=== PATIENT | female | born 1975 | race Caucasian/White ===

== ENCOUNTER 2016-12-21 18:45 | Emergency (ER) | payer SELFPAY ==
--- NOTE | 2016-12-21 19:17 | ER Document Report ---
ED Medical Screen (RME) - General Stated Complaint: FLANK PAIN Time seen by provider: 19:16 Mode of Arrival: Ambulatory Information source: Patient TRAVEL OUTSIDE OF THE [place] IN LAST 30 DAYS: No - HPI Patient complains to provider of: BL flank pain, nausea Onset: Other - 2 weeks Onset/Duration: Persistent Quality of pain: Achy, Sharp Severity: Moderate Pain Level: 3 Associated Symptoms: Nausea Exacerbated by: Denies Relieved by: Denies Similar symptoms previously: Yes Recently seen / treated by doctor: No - Related Data Allergies/Adverse Reactions: hydrochlorothiazide [Hydrochlorothiazide] Allergy (Severe, Verified 12/21/16 19: 15) Hives Past Medical History - Past Medical History Cardiac Medical History: Reports: Hx Hypertension Neurological Medical History: Reports: Hx Migraine GI Medical History: Reports: Hx Gastroesophageal Reflux Disease Musculoskeltal Medical History: Reports Hx Gout Psychiatric Medical History: Reports: Hx Depression Traumatic Medical History: Reports: Hx Traumatic Brain Injury - CLOSED Past Surgical History: Reports: Hx Cardiac Surgery - ablation, heart cath in march, Hx Orthopedic Surgery - Immunizations Hx Diphtheria, Pertussis, Tetanus Vaccination: Yes Physical Exam - Vital signs Vitals: Temp Pulse Resp BP Pulse Ox 97.6 F 94 18 146/79 H 97 12/21/16 19:13 12/21/16 19:13 12/21/16 19:13 12/21/16 19:13 12/21/16 19:13 Course - Vital Signs Vital signs: Temp Pulse Resp BP Pulse Ox 97.6 F 94 18 146/79 H 97 12/21/16 19:13 12/21/16 19:13 12/21/16 19:13 12/21/16 19:13 12/21/16 19:13
[2016-12-21 20:26] LABS: APPEARANCE,URINE SLIGHTLY-CLOUDY; BILIRUBIN,URINE NEGATIVE (NEGATIVE); GLUCOSE, URINE NEGATIVE (NEGATIVE); KETONES,URINE NEGATIVE (NEGATIVE); LEUKOCYTE ESTERASE,URINE NEGATIVE (NEGATIVE); NITRITE,URINE NEGATIVE (NEGATIVE); PROTEIN,URINE NEGATIVE (NEGATIVE); URINE SPECIFIC GRAVITY 1.027; UROBILINOGEN,URINE NEGATIVE mg/dL (<2.0)
[2016-12-21 20:33] LABS: ABSOLUTE BASOPHILS # (AUTO) 0.1 10^3/uL (0.0-0.2); ABSOLUTE EOSINOPHILS # (AUTO) 0.7 10^3/uL (0.0-0.6); ABSOLUTE LYMPHOCYTES (AUTO) 3.9 10^3/uL (0.5-4.7); ABSOLUTE MONOCYTES (AUTO) 0.8 10^3/uL (0.1-1.4); ABSOLUTE NEUT (AUTO) 6.5 10^3/uL (1.7-8.2); BASOPHILS % (AUTO) 0.6 % (0-2); EOSINOPHILS % (AUTO) 5.5 % (0-6); HEMOGLOBIN 13.5 g/dL (12.0-15.5); HGB HCT DIFFERENCE -0.5; LYMPHOCYTES % (AUTO) 32.9 % (13-45); MEAN CORPUSCULAR HEMOGLOBIN 28.4 pg (27.0-33.4); MEAN CORPUSCULAR HGB CONC 32.8 g/dL (32.0-36.0); MEAN CORPUSCULAR VOLUME 87 fl (80-97); MONOCYTES % (AUTO) 6.3 % (3-13); RED BLOOD COUNT 4.74 10^6/uL (3.72-5.28); RED CELL DISTRIBUTION WIDTH 13.7 % (11.5-14.0); SEGMENTED NEUTROPHILS % (AUTO) 54.7 % (42-78)
[2016-12-21 20:48] LABS: ALANINE AMINOTRANSFERASE 33 U/L (9-52); ALBUMIN 4.5 g/dL (3.5-5.0); ALKALINE PHOSPHATASE 76 U/L (38-126); ANION GAP 14 (5-19); ASPARTATE AMINO TRANSFERASE 25 U/L (14-36); BILIRUBIN,TOTAL 0.5 mg/dL (0.2-1.3); BLOOD UREA NITROGEN 14 mg/dL (7-20); CALCIUM 9.9 mg/dL (8.4-10.2); CARBON DIOXIDE 27 mmol/L (22-30); CHLORIDE 103 mmol/L (98-107); CREATININE RESULT 0.64 mg/dL (0.52-1.25); GLUCOSE 97 mg/dL (75-110); LIPASE 121.9 U/L (23-300); POTASSIUM 4.4 mmol/L (3.6-5.0); SODIUM 143.9 mmol/L (137-145); TOTAL PROTEIN 8.4 g/dL (6.3-8.2)
--- NOTE | 2016-12-21 21:26 | ER Document Report ---
ED General - General Chief Complaint: Flank Pain Stated Complaint: FLANK PAIN Time seen by provider: 21:21 Mode of Arrival: Ambulatory Information source: Patient Notes: 41-year-old female presenting to ED for bilateral flank pain times a week states it is intermittent with sharp and achy. States she has a history of kidney stones in the past. TRAVEL OUTSIDE OF THE [place] IN LAST 30 DAYS: No - HPI Onset: Last week Onset/Duration: Intermittent Quality of pain: Achy, Sharp Severity: Moderate Pain Level: 3 Associated symptoms: Nausea, Other - Flank pain Exacerbated by: Movement, Walking Relieved by: Denies Similar symptoms previously: Yes Recently seen / treated by doctor: No - Related Data Allergies/Adverse Reactions: hydrochlorothiazide [Hydrochlorothiazide] Allergy (Severe, Verified 12/21/16 19: 15) Hives Past Medical History - General Information source: Patient - Social History Smoking Status: Never Smoker Chew tobacco use (# tins/day): No Frequency of alcohol use: None Drug Abuse: None Occupation: none Lives with: Family Family History: Reviewed & Not Pertinent Patient has suicidal ideation: No Patient has homicidal ideation: No - Past Medical History Cardiac Medical History: Reports: Hx Atrial Fibrillation - Ablation done, Hx Hypercholesterolemia, Hx Hypertension Pulmonary Medical History: Reports: Hx Bronchitis, Hx Sleep Apnea EENT Medical History: Reports: None Neurological Medical History: Reports: Hx Migraine Endocrine Medical History: Reports: None Renal/ Medical History: Reports: Hx Kidney Stones Malignancy Medical History: Reports: None GI Medical History: Reports: Hx Gastroesophageal Reflux Disease Musculoskeltal Medical History: Reports Hx Gout, Reports Hx Musculoskeletal Deformity Skin Medical History: Reports None Psychiatric Medical History: Reports: None, Hx Depression Traumatic Medical History: Reports: None Infectious Medical History: Reports: None Past Surgical History: Reports: Hx Cardiac Surgery - ablation, heart cath in march, Hx Orthopedic Surgery - Immunizations Immunizations up to date: Yes Hx Diphtheria, Pertussis, Tetanus Vaccination: Yes Review of Systems - Review of Systems Constitutional: No symptoms reported EENT: No symptoms reported Cardiovascular: No symptoms reported Respiratory: No symptoms reported Gastrointestinal: No symptoms reported Genitourinary: Flank pain. denies: Dysuria, Frequency, Hematuria, Incontinence , Urgency, Retention Female Genitourinary: No symptoms reported Musculoskeletal: Back pain Skin: No symptoms reported Hematologic/Lymphatic: No symptoms reported Neurological/Psychological: No symptoms reported Physical Exam - Vital signs Vitals: Temp Pulse Resp BP Pulse Ox 97.6 F 94 18 146/79 H 97 12/21/16 19:13 12/21/16 19:13 12/21/16 19:13 12/21/16 19:13 12/21/16 19:13 Interpretation: Normal - General General appearance: Appears well, Alert - HEENT Head: Normocephalic, Atraumatic Eyes: Normal Pupils: PERRL - Respiratory Respiratory status: No respiratory distress Chest status: Nontender Breath sounds: Normal Chest palpation: Normal - Cardiovascular Rhythm: Regular Heart sounds: Normal auscultation Murmur: No - Abdominal Inspection: Normal Distension: No distension Bowel sounds: Normal Tenderness: Nontender Organomegaly: No organomegaly - Back Back: Normal, Tender, CVA tenderness - Bilateral flank pain no kidney stones. No: Deformity/step-off, Vertebra tenderness, Scars, Scoliosis, Wounds - Extremities General upper extremity: Normal inspection, Nontender, Normal color, Normal ROM , Normal temperature General lower extremity: Normal inspection, Nontender, Normal color, Normal ROM , Normal temperature, Normal weight bearing. No: Debby's sign - Neurological Neuro grossly intact: Yes Cognition: Normal Orientation: AAOx4 [place] Coma Scale Eye Opening: Spontaneous [place] Coma Scale Verbal: Oriented [place] Coma Scale Motor: Obeys Commands [place] Coma Scale Total: 15 Speech: Normal Motor strength normal: LUE, RUE, LLE, RLE Sensory: Normal - Psychological Associated symptoms: Normal affect, Normal mood - Skin Skin Temperature: Warm Skin Moisture: Dry Skin Color: Normal Course - Re-evaluation Re-evalutation: 12/21/16 21:30 Reviewed labs with patient and written reports given to patient to follow-up with her primary doctor. Consulted with Dr. ryan as everything is negative. We'll discharge home with instructions for back exercises increase in activity increase in fluids and follow-up with primary doctor. - Vital Signs Vital signs: Temp Pulse Resp BP Pulse Ox 97.9 F 93 20 137/85 H 96 12/21/16 22:01 12/21/16 22:01 12/21/16 22:01 12/21/16 22:01 12/21/16 22:01 - Laboratory Result Diagrams: 12/21/16 19:55 12/21/16 19:55 Laboratory results interpreted by me: 12/21/16 12/21/16 19:55 19:55 WBC 12.0 H Absolute Eosinophils 0.7 H Total Protein 8.4 H Discharge - Discharge Clinical Impression: Bilateral flank pain Low back pain Qualifiers: Chronicity: unspecified Back pain laterality: bilateral Sciatica presence: without sciatica Qualified Code(s): M54.5 - Low back pain Condition: Stable Disposition: HOME, SELF-CARE Instructions: Stretching Exercises for the Back ([facility]), Family Physicians / Practices Additional Instructions: LOW BACK PAIN: Three out of every four people will have an episode of disabling back pain during their lifetime. Most commonly the pain is due to straining of the muscles and ligaments in the low back. Usual treatment includes: (1) Rest on a firm surface. Avoid lying on your stomach. (2) Ice pack the painful area. After a few days, gentle heat may be used intermittently to relax the area, or ice packs can be continued. (3) Medication may be needed -- muscle relaxers and antiinflammatory medicines are commonly used. (4) As the back improves, exercises are prescribed to strengthen the back and abdominal muscles. Your doctor will advise you on the proper care for your back at each stage in your recovery. You may be better in a few days -- or healing may take several weeks. If new symptoms of a "herniated disc" (radiation of pain, numbness, or tingling down the back of the leg or weakness in the leg) occur, you should be re-examined. Further testing may be necessary. Flank Pain We weren't able to prove an exact cause for your flank pain. Pain in the flank can be caused by a muscle strain or spasm. Sometimes a kidney stone causes pain, but can't be found on our tests. Infection in the kidney should be evident on a urine test. Early shingles can occasionally cause flank pain, without the rash that proves the diagnosis. On rare occasions, disease of the pancreas, aorta, spleen, or colon can create pain in the flank. At this time, there's no evidence of a dangerous condition, and it seems safe for you to be at home. If the pain goes away and does not come back, no further testing will be needed. If pain persists, or becomes more severe, we may need to repeat some tests or order additional new testing. Blood in the urine, urgency to urinate frequently, and pain that radiates to the groin can indicate a kidney stone. Fever may mean that the pain is due to infection, either of the kidney or the colon (diverticulitis). If your pain is early shingles, you should develop an eruption of blisters in the painful area within a few days. Call the doctor or return if you have pain that is spreading or becoming more severe, pain that does not resolve with time, fever, or any other new symptoms. ICE PACKS: Apply ice packs frequently against the painful area. Many different schedules are recommended, such as "20 minutes on, 20 minutes off" or "one hour ice, two hours rest." If you need to work, you may need to go longer between ice treatments. You should plan to have the area ice packed AT LEAST one fourth of the time. The ice should be applied over the wrap, tape, or splint, or over a layer of cloth -- not directly against the skin. Some ice bags have a built-in cloth and can be put directly on the skin. WARM PACKS: After approximately two days, apply gentle heat (such as a heating pad or hot water bottle) for about 20 to 30 minutes about every two hours -- at least four times daily. Warmth and elevation will help you make a more rapid recovery , and will ease the pain considerably. Do not use HOT heat, and never apply heat for longer than 30 minutes. The continuous heat can invisibly damage skin and muscles -- even when no burn is seen on the surface. Damaged muscles can make you MORE sore. Ibuprofen Ibuprofen is an excellent, safe drug for pain control. In addition, it has potent antiinflammatory effects which are beneficial, especially in the treatment of injuries, arthritis, or tendonitis. It's best to take ibuprofen with food. Persons with ulcer disease or allergy to aspirin should notify their physician of this before taking ibuprofen. Take the medication exactly as prescribed. Don't take additional doses unless instructed to do so by your doctor. If you develop wheezing, shortness of breath, hives, faintness, stomach pain, vomiting, or dark black stools, return for re-evaluation at once. FOLLOW-UP CARE: If you have been referred to a physician for follow-up care, call the physician s office for an appointment as you were instructed or within the next two days. If you experience worsening or a significant change in your symptoms, notify the physician immediately or return to the Emergency Department at any time for re-evaluation. Forms: Elevated Blood Pressure
[2016-12-21 22:05] VITALS: BP 137/85
== END 2016-12-21 22:05 | disposition home or self-care (01) ==
LOC: ER 18:45
DX: R10.9 Unspecified abdominal pain (principal); M54.5 Low back pain; R11.0 Nausea; I48.91 Unspecified atrial fibrillation; E78.00 Pure hypercholesterolemia, unspecified; I10 Essential (primary) hypertension; Z87.442 Personal history of urinary calculi
CPT/HCPCS: 36415; 80053; 81001; 83690; 84703; 85025; 87086; 99284

== ENCOUNTER 2017-01-06 16:11 | Emergency (ER) | payer SELFPAY ==
--- NOTE | 2017-01-06 16:37 | ER Document Report ---
ED Medical Screen (RME) - General Stated Complaint: COUGH Time seen by provider: 16:35 Mode of Arrival: Ambulatory Information source: Patient Notes: 41-year-old female presents to ED for cough and all day and night. Generalized body aches Has chest tightness when she coughs. Nausea but no vomiting. States he feels like the bronchitis she gets every year. Denies any sputum. As menstrual period 12/14/2016 states she did not have a flu shot I have greeted and performed a rapid initial assessment of this patient. A comprehensive ED assessment and evaluation of the patient, analysis of test results and completion of medical decision making process will be conducted by an additional ED providers. TRAVEL OUTSIDE OF THE [place] IN LAST 30 DAYS: No - Related Data Allergies/Adverse Reactions: hydrochlorothiazide [Hydrochlorothiazide] Allergy (Severe, Verified 01/06/17 16: 34) Hives Past Medical History - Past Medical History Cardiac Medical History: Reports: Hx Atrial Fibrillation - Ablation done, Hx Hypercholesterolemia, Hx Hypertension Pulmonary Medical History: Reports: Hx Bronchitis, Hx Sleep Apnea Neurological Medical History: Reports: Hx Migraine Renal/ Medical History: Reports: Hx Kidney Stones. Denies: Hx Peritoneal Dialysis GI Medical History: Reports: Hx Gastroesophageal Reflux Disease Musculoskeltal Medical History: Reports Hx Gout, Reports Hx Musculoskeletal Deformity Psychiatric Medical History: Reports: Hx Depression Traumatic Medical History: Reports: Hx Traumatic Brain Injury - CLOSED Past Surgical History: Reports: Hx Cardiac Surgery - ablation, heart cath in march, Hx Orthopedic Surgery - Immunizations Immunizations up to date: Yes Hx Diphtheria, Pertussis, Tetanus Vaccination: Yes
[2017-01-06 17:26] LABS: ABSOLUTE EOSINOPHILS # (AUTO) 0.4 10^3/uL (0.0-0.6); ABSOLUTE LYMPHOCYTES (AUTO) 2.4 10^3/uL (0.5-4.7); ABSOLUTE MONOCYTES (AUTO) 0.7 10^3/uL (0.1-1.4); ABSOLUTE NEUT (AUTO) 3.4 10^3/uL (1.7-8.2); BASOPHILS % (AUTO) 0.6 % (0-2); EOSINOPHILS % (AUTO) 5.6 % (0-6); HEMATOCRIT 41.5 % (36.0-47.0); HEMOGLOBIN 13.7 g/dL (12.0-15.5); HGB HCT DIFFERENCE -0.4; LYMPHOCYTES % (AUTO) 34.2 % (13-45); MEAN CORPUSCULAR HEMOGLOBIN 28.7 pg (27.0-33.4); MEAN CORPUSCULAR HGB CONC 33.1 g/dL (32.0-36.0); MEAN CORPUSCULAR VOLUME 87 fl (80-97); MONOCYTES % (AUTO) 9.7 % (3-13); RED BLOOD COUNT 4.79 10^6/uL (3.72-5.28); RED CELL DISTRIBUTION WIDTH 14.1 % (11.5-14.0); SEGMENTED NEUTROPHILS % (AUTO) 49.9 % (42-78); WHITE BLOOD COUNT 6.9 10^3/uL (4.0-10.5)
[2017-01-06 17:55] LABS: ALANINE AMINOTRANSFERASE 62 U/L (9-52); ALBUMIN 4.4 g/dL (3.5-5.0); ALKALINE PHOSPHATASE 66 U/L (38-126); ANION GAP 11 (5-19); ASPARTATE AMINO TRANSFERASE 61 U/L (14-36); BILIRUBIN,TOTAL 0.6 mg/dL (0.2-1.3); BLOOD UREA NITROGEN 12 mg/dL (7-20); CARBON DIOXIDE 28 mmol/L (22-30); CHLORIDE 101 mmol/L (98-107); CREATININE RESULT 0.61 mg/dL (0.52-1.25); GLUCOSE 107 mg/dL (75-110); POTASSIUM 4.9 mmol/L (3.6-5.0); SODIUM 140.4 mmol/L (137-145); TOTAL PROTEIN 8.4 g/dL (6.3-8.2)
[2017-01-06] MEDS ORDERED: BENZONATATE 100 MG CAPSULE PO ONE (19:50)
[2017-01-06] MEDS ORDERED: IBUPROFEN 600 MG TABLET PO ONE (19:50)
--- NOTE | 2017-01-06 19:54 | ER Document Report ---
ED General - General Chief Complaint: Cough Stated Complaint: COUGH Mode of Arrival: Ambulatory Notes: Patient is a 41-year-old female with past medical history of morbid obesity who presents with concerns of a persistent cough for the last one week. She's been trying [id number] remedies without any improvement of the cough. Some visible unchanged since onset. Nothing worsens the cough. Denies any use of tobacco. States she's had similar symptoms with prior episodes of bronchitis in the past. She has not seen her primary care doctor regarding today's concerns. She denies any associated shortness of breath, hemoptysis, vomiting or diarrhea. She has not had a fever. TRAVEL OUTSIDE OF THE [place] IN LAST 30 DAYS: No - Related Data Allergies/Adverse Reactions: hydrochlorothiazide [Hydrochlorothiazide] Allergy (Severe, Verified 01/06/17 16: 34) Hives Past Medical History - General Information source: Patient - Social History Smoking Status: Never Smoker Chew tobacco use (# tins/day): No Frequency of alcohol use: None Drug Abuse: None Family History: Reviewed & Not Pertinent Patient has suicidal ideation: No Patient has homicidal ideation: No - Past Medical History Cardiac Medical History: Reports: Hx Atrial Fibrillation - Ablation done, Hx Hypercholesterolemia, Hx Hypertension Pulmonary Medical History: Reports: Hx Bronchitis, Hx Sleep Apnea Neurological Medical History: Reports: Hx Migraine Renal/ Medical History: Reports: Hx Kidney Stones. Denies: Hx Peritoneal Dialysis GI Medical History: Reports: Hx Gastroesophageal Reflux Disease Musculoskeltal Medical History: Reports Hx Gout, Reports Hx Musculoskeletal Deformity Psychiatric Medical History: Reports: Hx Depression Traumatic Medical History: Reports: Hx Traumatic Brain Injury - CLOSED Past Surgical History: Reports: Hx Cardiac Surgery - ablation, heart cath in march, Hx Orthopedic Surgery - Immunizations Immunizations up to date: Yes Hx Diphtheria, Pertussis, Tetanus Vaccination: Yes Review of Systems - Review of Systems Notes: Constitutional: Negative for fever. HENT: Negative for sore throat. Eyes: Negative for visual changes. Cardiovascular: Negative for chest pain. Respiratory: Negative for shortness of breath., Positive for cough Gastrointestinal: Negative for abdominal pain, vomiting or diarrhea. Genitourinary: Negative for dysuria. Musculoskeletal: Negative for back pain. Skin: Negative for rash. Neurological: Negative for headaches, weakness or numbness. 10 point ROS negative except as marked above and in HPI. Physical Exam - Vital signs Vitals: Temp Pulse Resp BP Pulse Ox 98.4 F 98 20 153/86 H 97 01/06/17 16:22 01/06/17 16:22 01/06/17 16:22 01/06/17 16:22 01/06/17 16:22 Interpretation: Hypertensive Notes: PHYSICAL EXAMINATION: GENERAL: Well-appearing, well-nourished and in no acute distress. HEAD: Atraumatic, normocephalic. EYES: Pupils equal round and reactive to light, extraocular movements intact, sclera anicteric, conjunctiva are normal. ENT: nares patent, oropharynx clear without exudates. Moist mucous membranes. NECK: Normal range of motion, supple without lymphadenopathy LUNGS: Breath sounds clear to auscultation bilaterally and equal. No wheezes rales or rhonchi. HEART: Regular rate and rhythm without murmurs ABDOMEN: Soft, nontender, normoactive bowel sounds. No guarding, no rebound. No masses appreciated. EXTREMITIES: Normal range of motion, no pitting or edema. No cyanosis. NEUROLOGICAL: No focal neurological deficits. Moves all extremities spontaneously and on command. PSYCH: Normal mood, normal affect. SKIN: Warm, Dry, normal turgor, no rashes or lesions noted. Course - Re-evaluation Re-evalutation: 01/06/17 19:51 Presentation is most consistent with a viral upper respiratory infection. Patient is overall well appearance, vitals within normal limits, well-hydrated. Patient denies any headache, neck pain, and has no evidence of meningismus on examination. Lungs are clear bilaterally. No evidence of respiratory distress. Based on clinical exam and history, I do not suspect an acute pneumonia, meningitis, strep pharyngitis, or an acute encephalitis. No laboratory or imaging testing is indicated at this time. However, in triage a broad-spectrum of laboratories were ordered for unclear reasons and I do not believe these are medically indicated tests. There are noted to be normal. Chest x-ray likewise was ordered and is normal. Will discharge patient with return precautions and followup recommendations. They are in agreement this plan have verbalized understanding return precautions. - Vital Signs Vital signs: Temp Pulse Resp BP Pulse Ox 98.0 F 94 16 145/95 H 96 01/06/17 20:09 01/06/17 20:22 01/06/17 20:09 01/06/17 20:09 01/06/17 20:09 - Laboratory Result Diagrams: 01/06/17 16:38 01/06/17 16:45 Laboratory results interpreted by me: 01/06/17 01/06/17 16:38 16:45 RDW 14.1 H AST 61 H ALT 62 H Total Protein 8.4 H - Diagnostic Test Radiology reviewed: Image reviewed, Reports reviewed Radiology results interpreted by me: 01/06/17 19:52 Chest x-ray: No acute infiltrate Discharge - Discharge Clinical Impression: Cough Upper respiratory infection Qualifiers: URI type: unspecified viral URI Qualified Code(s): J06.9 - Acute upper respiratory infection, unspecified Condition: Good Disposition: HOME, SELF-CARE Additional Instructions: Your symptoms are most likely due to a viral infection it should resolve over the next 7-14 days. You should take [id number] guanfacine per bottle instructions to help thin the mucus. For nasal congestion: I would recommend that you get iccy-elk-abnkgrp oxymetazoline also known is afrin. Use only per bottle instructions and be sure to never use this for more than 3 days if you can develop severe rebound congestion. You may also use tylenol or ibuprofen as needed for aches and thorat discomfort. Please be sure to drink plenty of fluids and get rest. Return to the emergency department he began having difficulty breathing, chest pain, persistent vomiting, or any other symptoms that are concerning to you. Prescriptions: Benzonatate [Tessalon Perle 100 mg Capsule] 100 mg PO Q8HP PRN #40 cap PRN Reason:
[2017-01-06] MEDS ORDERED: ALBUTEROL SULFATE HFA (90 MCG/PUFF) 8 GM MDI (1 MDI/ER DISP) IH PRN (20:00)
[2017-01-06 20:22] VITALS: BP 145/95
== END 2017-01-06 20:24 | disposition home or self-care (01) ==
LOC: ER 16:11
DX: J06.9 Acute upper respiratory infection, unspecified (principal); B97.89 Other viral agents as the cause of diseases classified elsewhere; R05 Cough; I10 Essential (primary) hypertension; E66.01 Morbid (severe) obesity due to excess calories; Z68.27 Body mass index [BMI] 27.0-27.9, adult; Z88.8 Allergy status to other drugs, medicaments and biological substances
CPT/HCPCS: 99283; 36415; 84703; 85025; 80053; 87804; 71020; J3490

== ENCOUNTER 2017-02-13 12:03 | Emergency (ER) | payer SELFPAY ==
--- NOTE | 2017-02-13 12:47 | ER Document Report ---
ED Medical Screen (RME) - General Chief Complaint: Abscess Stated Complaint: BOIL ON LEFT ARM Notes: Patient noted the beginnings of a small painful lump on her left side about 2 or 3 days ago. It has gradually enlarged. Has not drained spontaneously, so the patient's mother stuck a sewing needle into the wound this morning in an unsuccessful attempt to get it to drain. No fevers. No prior abscesses. Patient is not diabetic. Patient has a small erythematous area of the left side of her chest with a central lesion that has a break in the skin, probably secondary to being stuck by the needle. I feel some firmness in that erythematous area, but I don't feel any true fluctuance. Patient says she has high blood pressure and some other medical conditions but she is out of all of her medications because she has not been able to get back to the [facility] TRAVEL OUTSIDE OF THE [place] IN LAST 30 DAYS: No - Related Data Allergies/Adverse Reactions: hydrochlorothiazide [Hydrochlorothiazide] Allergy (Severe, Verified 01/06/17 16: 34) Hives Past Medical History - Past Medical History Cardiac Medical History: Reports: Hx Atrial Fibrillation - Ablation done, Hx Hypercholesterolemia, Hx Hypertension Pulmonary Medical History: Reports: Hx Bronchitis, Hx Sleep Apnea Neurological Medical History: Reports: Hx Migraine Renal/ Medical History: Reports: Hx Kidney Stones. Denies: Hx Peritoneal Dialysis GI Medical History: Reports: Hx Gastroesophageal Reflux Disease Musculoskeltal Medical History: Reports Hx Gout, Reports Hx Musculoskeletal Deformity Psychiatric Medical History: Reports: Hx Depression Traumatic Medical History: Reports: Hx Traumatic Brain Injury - CLOSED Past Surgical History: Reports: Hx Cardiac Surgery - ablation, heart cath in march, Hx Orthopedic Surgery - Immunizations Immunizations up to date: Yes Hx Diphtheria, Pertussis, Tetanus Vaccination: Yes Physical Exam - Vital signs Vitals: Temp Pulse Resp BP Pulse Ox 98.7 F 92 16 137/81 H 95 02/13/17 12:06 02/13/17 12:02/13/17 12:02/13/17 12:06 02/13/17 12:06 Course - Vital Signs Vital signs: Temp Pulse Resp BP Pulse Ox 98.7 F 92 16 137/81 H 95 02/13/17 12:06 02/13/17 12:06 02/13/17 12:06 02/13/17 12:06 02/13/17 12:06
--- NOTE | 2017-02-13 15:21 | ER Document Report ---
ED Skin Rash/Insect Bite/Abscs - General Mode of Arrival: Ambulatory Information source: Patient TRAVEL OUTSIDE OF THE [place] IN LAST 30 DAYS: No - HPI Patient complains to provider of: Skin rash/lesion, Tender/swollen area Onset: Other - 3 days ago - General Chief Complaint: Abscess Stated Complaint: BOIL ON LEFT ARM Notes: 41-year-old female with history of hypertension and hyperlipidemia presents to the ED complaining of an abscess to the upper left back which started as a pimple but progressively grew bigger over the course of the past 3 days. Patient states that she does not shave the area with the abscess is. Patient has been using warm compresses, but to no relief. Patient reports trying to drain the abscess by herself by using a needle. Patient's primary care provider is [facility]. She denies history of diabetes. (ASHLEY MUNOZ) - Related Data Allergies/Adverse Reactions: hydrochlorothiazide [Hydrochlorothiazide] Allergy (Severe, Verified 01/06/17 16: 34) Hives Past Medical History - General Information source: Patient - Social History Smoking Status: Never Smoker Chew tobacco use (# tins/day): No Frequency of alcohol use: None Drug Abuse: None Family History: Reviewed & Not Pertinent Patient has suicidal ideation: No Patient has homicidal ideation: No - Past Medical History Cardiac Medical History: Reports: Hx Atrial Fibrillation - Ablation done, Hx Hypercholesterolemia, Hx Hypertension Pulmonary Medical History: Reports: Hx Bronchitis, Hx Sleep Apnea Neurological Medical History: Reports: Hx Migraine Renal/ Medical History: Reports: Hx Kidney Stones. Denies: Hx Peritoneal Dialysis GI Medical History: Reports: Hx Gastroesophageal Reflux Disease Musculoskeltal Medical History: Reports Hx Gout, Reports Hx Musculoskeletal Deformity Psychiatric Medical History: Reports: Hx Depression Traumatic Medical History: Reports: Hx Traumatic Brain Injury - CLOSED Past Surgical History: Reports: Hx Cardiac Surgery - ablation, heart cath in march, Hx Orthopedic Surgery - Immunizations Immunizations up to date: Yes Hx Diphtheria, Pertussis, Tetanus Vaccination: Yes Review of Systems - Review of Systems Constitutional: No symptoms reported EENT: No symptoms reported Cardiovascular: No symptoms reported Respiratory: No symptoms reported Gastrointestinal: No symptoms reported Genitourinary: No symptoms reported Female Genitourinary: No symptoms reported Musculoskeletal: No symptoms reported Skin: See HPI, Other - Potential abscess to the left upper back Hematologic/Lymphatic: No symptoms reported Neurological/Psychological: No symptoms reported -: Yes All other systems reviewed and negative Physical Exam - General General appearance: Alert In distress: None - HEENT Head: Normocephalic, Atraumatic Eyes: Normal Extraocular movements intact: Yes Pupils: PERRL - Respiratory Respiratory status: No respiratory distress Breath sounds: Normal - Cardiovascular Rhythm: Regular Heart sounds: Normal auscultation - Abdominal Inspection: Normal Distension: No distension Tenderness: Nontender - Back Back: No: Normal - See skin exam below - Extremities General upper extremity: Normal inspection, Normal ROM General lower extremity: Normal inspection, Normal ROM - Neurological Neuro grossly intact: Yes Cognition: Normal Orientation: AAOx4 Keyser Coma Scale Eye Opening: Spontaneous Sandra Coma Scale Verbal: Oriented Sandra Coma Scale Motor: Obeys Commands Keyser Coma Scale Total: 15 Speech: Normal - Psychological Associated symptoms: Normal affect, Normal mood - Skin Skin Temperature: Warm Skin Moisture: Dry Skin Color: Normal Skin irregularity: Abscess - Abscess to the left upper back with a pinpoint needle impression with slight induration and surrounding bruising. No sign of cellulitis, fluctuance, crepitus. Location of irregularity: Back - Left upper back Course - Re-evaluation Re-evalutation: 02/13/17 15:27 Patient presents the emergency department with an infected pimple. It is not in her axillary region it's on her left posterior back area. She squeezed it this morning really really hard bruising the entire area and then stuck a pin in it. She didn't get anything out of it. On examination he can see the pin aki in the middle there is a slight area of induration and there is bruising on the outside of the phone when he pinched it. There is no fluctuance or abscess there is no requirement for incision and drainage at this point. Concern on clindamycin and warm compresses 4 times a day for a half hour follow-up with the clinic in 2-3 days and discussed reasons Fredia return sooner and patient is not diabetic. 02/13/17 15:30 (YANI PUCKETT) - Vital Signs Vital signs: Temp Pulse Resp BP Pulse Ox 98.2 F 82 20 147/77 H 95 02/13/17 15:47 02/13/17 15:47 02/13/17 15:47 02/13/17 15:47 02/13/17 15:47 Discharge - Discharge Clinical Impression: abscess Condition: Stable Disposition: HOME, SELF-CARE Additional Instructions: Infected pimple You may shower and wash the area around the incision site two or three times a day. Antibiotics may be prescribed, but are usually not necessary after an abscess has been drained. If you develop fever, chilling, worsening pain, or increasing swelling in the area, call the doctor or return immediately. Follow-up with the primary care physician in 2-3 days take all antibiotics as prescribed warm compresses to the area 4 times a day for 30 minutes at a time. Return for increasing worsening or new symptoms Prescriptions: Clindamycin HCl [Cleocin 300 mg Capsule] 300 mg PO BID #14 capsule Referrals: [facility] [Provider Group] - Follow up in 3-5 days (Follow-up with the clinic in 2-3 days return for increasing worsening or new symptoms) Scribe Attestation: 02/13/17 15:28 I personally performed the services described in the documentation reviewed the documentation recorded by my scribe in my presence and it accurately and completely records my words and actions (YANI PUCKETT) Scribe Documentation - Scribe Written by Adenike:: Adenike Ball, 02/13/2017 1521 acting as scribe for :: Victor Manuel
[2017-02-13] MEDS ORDERED: CLINDAMYCIN HCL 150 MG CAPSULE PO ONE (15:43)
[2017-02-13 15:51] VITALS: BP 147/77
== END 2017-02-13 15:52 | disposition home or self-care (01) ==
LOC: ER 12:03
DX: L02.414 Cutaneous abscess of left upper limb (principal); I10 Essential (primary) hypertension; E78.5 Hyperlipidemia, unspecified
CPT/HCPCS: 82962; 99282

== ENCOUNTER → 2017-03-01 | Outpatient (CLI) | payer OTHER ==
[2017-03-01 12:24] LABS: ABSOLUTE BASOPHILS # (AUTO) 0.1 10^3/uL (0.0-0.2); ABSOLUTE EOSINOPHILS # (AUTO) 0.5 10^3/uL (0.0-0.6); ABSOLUTE LYMPHOCYTES (AUTO) 3.1 10^3/uL (0.5-4.7); ABSOLUTE MONOCYTES (AUTO) 0.6 10^3/uL (0.1-1.4); ABSOLUTE NEUT (AUTO) 6.5 10^3/uL (1.7-8.2); BASOPHILS % (AUTO) 0.6 % (0-2); EOSINOPHILS % (AUTO) 4.4 % (0-6); HEMATOCRIT 40.8 % (36.0-47.0); HEMOGLOBIN 13.4 g/dL (12.0-15.5); HGB HCT DIFFERENCE -0.6; LYMPHOCYTES % (AUTO) 28.9 % (13-45); MEAN CORPUSCULAR HEMOGLOBIN 28.1 pg (27.0-33.4); MEAN CORPUSCULAR HGB CONC 32.7 g/dL (32.0-36.0); MEAN CORPUSCULAR VOLUME 86 fl (80-97); MONOCYTES % (AUTO) 5.3 % (3-13); RED BLOOD COUNT 4.75 10^6/uL (3.72-5.28); RED CELL DISTRIBUTION WIDTH 13.9 % (11.5-14.0); SEGMENTED NEUTROPHILS % (AUTO) 60.8 % (42-78); WHITE BLOOD COUNT 10.7 10^3/uL (4.0-10.5)
[2017-03-01 13:04] LABS: ALANINE AMINOTRANSFERASE 46 U/L (9-52); ALBUMIN 4.2 g/dL (3.5-5.0); ALKALINE PHOSPHATASE 69 U/L (38-126); ANION GAP 10 (5-19); ASPARTATE AMINO TRANSFERASE 39 U/L (14-36); BILIRUBIN,DIRECT 0.5 mg/dL (0.0-0.4); BILIRUBIN,TOTAL 0.8 mg/dL (0.2-1.3); BLOOD UREA NITROGEN 12 mg/dL (7-20); CALCIUM 9.5 mg/dL (8.4-10.2); CARBON DIOXIDE 29 mmol/L (22-30); CHLORIDE 99 mmol/L (98-107); CHOLESTEROL 244.17 mg/dL (0-200); CREATININE RESULT 0.65 mg/dL (0.52-1.25); Direct HDL 49 mg/dL (>40); GLUCOSE 114 mg/dL (75-110); POTASSIUM 4.8 mmol/L (3.6-5.0); SODIUM 137.7 mmol/L (137-145); TOTAL PROTEIN 8.3 g/dL (6.3-8.2); TRIGLYCERIDES 168 mg/dL (<150); URIC ACID 7.5 mg/dL (2.5-7.0)
[2017-03-01 13:15] LABS: DIRECT LDL 166 mg/dL (<100)
[2017-03-01 13:23] LABS: VLDL CHOLESTEROL 33.6 mg/dL (10-31)
== END ==
LOC: CCC 10:58
DX: M10.9 Gout, unspecified (principal); I10 Essential (primary) hypertension
CPT/HCPCS: 36415; 80053; 80061; 83036; 84443; 84550; 85025

== ENCOUNTER 2017-04-19 11:22 | Emergency (ER) | payer SELFPAY ==
--- NOTE | 2017-04-19 13:45 | ER Document Report ---
ED Respiratory Problem - General Chief Complaint: Cough Stated Complaint: COUGH,CONGESTION,BODY ACHES Time Seen by Provider: 04/19/17 13:20 TRAVEL OUTSIDE OF THE [place] IN LAST 30 DAYS: No - HPI Patient complains to provider of: Other - h/o bronchitis Onset: Last week Duration: Continuous Initiating Event: No: Allergy, Aspiration/Choking, Exertion, Exposure to chemicals, Exposure to dust, Exposure to fumes, Exposure to mold, Exposure to smoke, Out of meds, Sports/exercise, URI, Other Quality of pain: Achy Context: denies: DVT, Factor V Leiden, Hx asthma, Hx CHF, Hx COPD, Malignancy, , Recent cardiac event, Recent foreign travel, Recent long distance trvl , Recent immobilization, Recent surgery, Smoker, Other Short of Breath: Mild Cough: Nonproductive At home treatment: Bronchodilators - using her moms inhaler Similar symptoms previously: No Recently seen / treated by doctor: No - Related Data Allergies/Adverse Reactions: hydrochlorothiazide [Hydrochlorothiazide] Allergy (Severe, Verified 04/19/17 11: 27) Hives Past Medical History - General Information source: Patient - Social History Smoking Status: Never Smoker Frequency of alcohol use: None Drug Abuse: None Family History: Reviewed & Not Pertinent Patient has suicidal ideation: No Patient has homicidal ideation: No - Past Medical History Cardiac Medical History: Reports: Hx Atrial Fibrillation - Ablation done, Hx Hypercholesterolemia, Hx Hypertension Pulmonary Medical History: Reports: Hx Bronchitis, Hx Sleep Apnea Neurological Medical History: Reports: Hx Migraine Renal/ Medical History: Reports: Hx Kidney Stones. Denies: Hx Peritoneal Dialysis GI Medical History: Reports: Hx Gastroesophageal Reflux Disease Musculoskeltal Medical History: Reports Hx Gout, Reports Hx Musculoskeletal Deformity Psychiatric Medical History: Reports: Hx Depression Traumatic Medical History: Reports: Hx Traumatic Brain Injury - CLOSED Past Surgical History: Reports: Hx Cardiac Surgery - ablation, heart cath in march, Hx Orthopedic Surgery - Immunizations Immunizations up to date: Yes Hx Diphtheria, Pertussis, Tetanus Vaccination: Yes Review of Systems - Review of Systems Constitutional: No symptoms reported EENT: Throat pain - from coughing Cardiovascular: No symptoms reported Respiratory: Cough Gastrointestinal: No symptoms reported Musculoskeletal: Other - body aches -: Yes All other systems reviewed and negative Physical Exam - Vital signs Vitals: Temp Pulse Resp BP Pulse Ox 97.9 F 91 22 H 141/76 H 95 06/26/17 11:29 04/19/17 11:29 04/19/17 11:04/19/17 11:04/19/17 11:29 - Notes Notes: PHYSICAL EXAM GENERAL: Alert, interacts well. HEAD: Normocephalic, atraumatic. EYES: Pupils equal, round, and reactive to light. Extraocular movements intact. ENT: Oral mucosa moist, tongue midline. NECK: Full range of motion. Supple. Trachea midline. LUNGS: Clear to auscultation bilaterally, no wheezes, rales, or rhonchi. No respiratory distress. HEART: Regular rate and rhythm. No murmurs, gallops, or rubs. ABDOMEN: Soft, nondistended, nontender. No guarding, rebound, or rigidity.. Bowel sounds present in all 4 quadrants. EXTREMITIES: Moves all 4 extremities spontaneously. No edema, radial and dorsalis pedis pulses 2/4 bilaterally. No cyanosis. NEUROLOGICAL: Alert and oriented x4. Normal speech. PSYCH: Normal affect, normal mood. SKIN: Warm, dry, normal turgor. No rashes or lesions noted. Course - Re-evaluation Re-evalutation: 04/19/17 14:23 Patient is a 41-year-old female who presents emergency department complaining of cough. Unable stable, no acute distress afebrile. No evidence of pneumonia or cardiopulmonary process noted on x-ray. Discharge patient home with Tessalon Perles and albuterol and to follow-up with primary care. - Vital Signs Vital signs: Temp Pulse Resp BP Pulse Ox 97.9 F 91 22 H 141/76 H 95 04/19/17 11:29 04/19/17 11:29 04/19/17 11:04/19/17 11:29 04/19/17 11:29 - Diagnostic Test Radiology reviewed: Image reviewed Discharge - Discharge Clinical Impression: Upper respiratory tract infection Condition: Good Disposition: HOME, SELF-CARE Additional Instructions: Your symptoms are most likely due to a viral infection it should resolve over the next 7-14 days. You should take [id number] guanfacine per bottle instructions to help thin the mucus. For nasal congestion: I would recommend that you get bkgm-jro-vesmtce oxymetazoline also known is afrin. Use only per bottle instructions and be sure to never use this for more than 3 days if you can develop severe rebound congestion. You may also use tylenol or ibuprofen as needed for aches and thorat discomfort. Please be sure to drink plenty of fluids and get rest. Return to the emergency department he began having difficulty breathing, chest pain, persistent vomiting, or any other symptoms that are concerning to you. Prescriptions: Benzonatate [Tessalon Perle 100 mg Capsule] 100 mg PO Q8HP PRN #40 cap PRN Reason: Albuterol Sulfate [Proair HFA Inhalation Aerosol 8.5 gm MDI] 2 puff IH Q4H PRN # 1 mdi PRN Reason: Forms: Elevated Blood Pressure Referrals: [facility] [Primary Care Provider] - Follow up as needed
--- NOTE | 2017-04-19 14:31 | RADIOLOGY REPORT (SQ) ---
EXAM DESCRIPTION: CHEST PA/LAT COMPLETED DATE/TIME: 04/19/2017 2:22 pm REASON FOR STUDY: cough COMPARISON: 01/06/2017 EXAM PARAMETERS: NUMBER OF VIEWS: two views TECHNIQUE: Digital Frontal and Lateral radiographic views of the chest acquired. RADIATION DOSE: NA LIMITATIONS: none FINDINGS: LUNGS AND PLEURA: No opacities, masses or pneumothorax. No pleural effusion. MEDIASTINUM AND HILAR STRUCTURES: No masses or contour abnormalities. HEART AND VASCULAR STRUCTURES: Heart normal size. No evidence for failure. BONES: No acute findings. HARDWARE: None in the chest. OTHER: No other significant finding. IMPRESSION: NO SIGNIFICANT RADIOGRAPHIC FINDING IN THE CHEST. TECHNICAL DOCUMENTATION: JOB ID: [id number] [employer]- All Rights Reserved
[2017-04-19 15:10] VITALS: BP 144/80
== END 2017-04-19 15:09 | disposition home or self-care (01) ==
LOC: ER 11:22
DX: J06.9 Acute upper respiratory infection, unspecified (principal); R05 Cough; R07.0 Pain in throat; I10 Essential (primary) hypertension; Z88.8 Allergy status to other drugs, medicaments and biological substances
CPT/HCPCS: 71020; 99283

== ENCOUNTER 2017-08-10 09:52 | Emergency (ER) | payer BC ==
[2017-08-10] MEDS ORDERED: HYDROMORPHONE HCL INJ/PF 2 MG/ML AMPULE IM ONE (10:31)
--- NOTE | 2017-08-10 11:26 | RADIOLOGY REPORT (SQ) ---
EXAM DESCRIPTION: HIP RIGHT AP/LATERAL COMPLETED DATE/TIME: 08/10/2017 11:07 am REASON FOR STUDY: r hip pain, felt pop COMPARISON: None. NUMBER OF VIEWS: Two views. TECHNIQUE: AP pelvis and additional frog-leg view of the right hip. LIMITATIONS: None. FINDINGS: MINERALIZATION: Normal. RIGHT HIP: No fracture or dislocation. No worrisome bone lesions. LEFT HIP: No fracture or dislocation. No worrisome bone lesions. PUBIS AND ISCHIUM: No fracture. PELVIS: No fracture. SACRUM: No fracture or dislocation. No worrisome bone lesions. LOWER LUMBAR SPINE: No acute abnormality. Degenerative disc changes are present. SOFT TISSUES: No findings. OTHER: No other significant finding. IMPRESSION: Normal right hip. Lumbar degenerative disc changes. TECHNICAL DOCUMENTATION: JOB ID: [id number] [employer]- All Rights Reserved
--- NOTE | 2017-08-10 11:34 | ER Document Report ---
HPI - HPI Patient complains to provider of: Right hip pain Onset: Just prior to arrival Onset/Duration: Sudden Quality of pain: Sharp Pain Level: 5 Context: Patient states that she was sitting down to go to the bathroom and felt a sudden pop in her right hip. Patient states that she has had severe pain to the right lateral aspect of her hip since then. Patient denies any previous injury. Patient denies any radiculopathy or paresthesia symptoms. Patient denies any fever. Patient denies any low back pain. Patient denies any urinary retention or incontinence. Associated Symptoms: Other - Right lateral hip pain Exacerbated by: Standing, Movement, Walking Relieved by: Denies Similar symptoms previously: No Recently seen / treated by doctor: No - ROS ROS below otherwise negative: Yes Systems Reviewed and Negative: Yes All other systems reviewed and negative - CONSTITUTIONAL Constitutional: DENIES: Fever - NEURO Neurology: DENIES: Headache, Weakness - CARDIOVASCULAR Cardiovascular: DENIES: Chest pain - GASTROINTESTINAL Gastrointestinal: DENIES: Nausea, Patient vomiting - URINARY Urinary: DENIES: Dysuria - REPRODUCTIVE Reproductive: DENIES: : - MUSCULOSKELETAL Musculoskeletal: REPORTS: Extremity pain. DENIES: Back Pain - DERM Skin Color: Normal Skin Problems: None Past Medical History - General Information source: Patient - Social History Smoking Status: Never Smoker Frequency of alcohol use: None Drug Abuse: None Occupation: Foodservice Family History: Reviewed & Not Pertinent - Past Medical History Cardiac Medical History: Reports: Hx Atrial Fibrillation - Ablation done, Hx Hypercholesterolemia, Hx Hypertension Pulmonary Medical History: Reports: Hx Bronchitis, Hx Sleep Apnea Neurological Medical History: Reports: Hx Migraine Endocrine Medical History: Reports: Hx Diabetes Mellitus Type 2 Renal/ Medical History: Reports: Hx Kidney Stones. Denies: Hx Peritoneal Dialysis GI Medical History: Reports: Hx Gastroesophageal Reflux Disease Musculoskeltal Medical History: Reports Hx Gout, Reports Hx Musculoskeletal Deformity Psychiatric Medical History: Reports: Hx Depression Traumatic Medical History: Reports: Hx Traumatic Brain Injury - CLOSED Past Surgical History: Reports: Hx Cardiac Surgery - ablation, heart cath in march, Hx Orthopedic Surgery - Immunizations Immunizations up to date: Yes Hx Diphtheria, Pertussis, Tetanus Vaccination: Yes Vertical Provider Document - CONSTITUTIONAL Agree With Documented VS: Yes Exam Limitations: No Limitations General Appearance: WD/WN, Mild Distress, Obese - morbidly obese - INFECTION CONTROL TRAVEL OUTSIDE OF THE [place] IN LAST 30 DAYS: No - HEENT HEENT: Atraumatic, Normocephalic - NECK Neck: Normal Inspection - RESPIRATORY Respiratory: Breath Sounds Normal, No Respiratory Distress O2 Sat by Pulse Oximetry: 99 - CARDIOVASCULAR Cardiovascular: Regular Rate, Regular Rhythm Pulses: Normal: Dorsalis pedis - BACK Back: Normal Inspection. negative: CVA Tenderness-Right, CVA Tenderness-Left Notes: no spinal tenderness, no SI joint tenderness - MUSCULOSKELETAL/EXTREMETIES Musculoskeletal/Extremeties: Tender - right lateral hip tenderness, no dislocation - NEURO Level of Consciousness: Awake, Alert, Appropriate Motor/Sensory: No Motor Deficit, No Sensory Deficit Notes: No footdrop, normal strength and muscle tone to bilateral lower extremities. No saddle anesthesia - DERM Integumentary: Warm, Dry Course - Re-evaluation Re-evalutation: 08/10/17 11:54 Patient reports that pain is somewhat improved after pain medication. Discussed results of patient's x-ray report with patient. Patient states that she needs to work due to recently missing a week of work after having an ovarian cyst. Discussed worsening symptoms that patient should return medially for. Patient verbalized understanding and agrees with plan of care. - Vital Signs Vital signs: Temp Pulse Resp BP Pulse Ox 98.0 F 100 18 141/101 H 99 08/10/17 10:00 08/10/17 10:00 08/10/17 10:00 08/10/17 10:00 08/10/17 10:00 - Diagnostic Test Radiology reviewed: Reports reviewed Discharge - Discharge Clinical Impression: Right hip pain Degenerative arthritis of lumbar spine Qualifiers: Spinal osteoarthritis complication: unspecified spinal osteoarthritis Qualified Code(s): M47.816 - Spondylosis without myelopathy or radiculopathy, lumbar region Condition: Stable Disposition: HOME, SELF-CARE Instructions: Oral Narcotic Medication ([facility]), Radiculopathy ([facility]), Sprain ([facility]) Additional Instructions: Return immediately for any new or worsening symptoms Followup with your primary care provider, call tomorrow to make a followup appointment Avoid any heavy lifting or twisting movements Prescriptions: Oxycodone HCl/Acetaminophen [Percocet 5-325 mg Tablet] 1 tab PO ASDIR PRN #12 tablet PRN Reason: Forms: Restricted Release, Return to Work Referrals: [facility] [Provider Group] - Follow up as needed
[2017-08-10 12:13] VITALS: BP 123/65
== END 2017-08-10 12:30 | disposition home or self-care (01) ==
LOC: ER 09:52
DX: M25.551 Pain in right hip (principal); M47.816 Spondylosis without myelopathy or radiculopathy, lumbar region; I10 Essential (primary) hypertension; E11.9 Type 2 diabetes mellitus without complications; E66.01 Morbid (severe) obesity due to excess calories; Z68.42 Body mass index [BMI] 45.0-49.9, adult
CPT/HCPCS: 99283; 96372; 73502; J1170

== ENCOUNTER → 2017-09-13 | Outpatient (CLI) | payer BC ==
--- NOTE | 2017-09-13 15:23 | WOMENS IMAGING REPORT ---
EXAM DESCRIPTION: BILAT SCREENING MAMMO W/CAD COMPLETED DATE/TIME: 09/13/2017 2:35 pm REASON FOR STUDY: SCREENING MAMMO Z12.31 ENCNTR SCREEN MAMMOGRAM FOR MALIGNANT NEOPLASM OF ANN COMPARISON: None. TECHNIQUE: Standard craniocaudal and mediolateral oblique views of each breast recorded using digita l acquisition. LIMITATIONS: None. FINDINGS: No masses, calcifications or architectural distortion. No areas of suspicion. Read with the assistance of CAD. .[facility] - R2 Cenova Version 1.3 .[facility] Imaging - R2 Cenova Version 1.3 .[facility] Imaging - R2 Cenova Version 2.4 .[facility] - R2 Cenova Version 2.4 .[facility] - R2 Onsite Health Coach Version 9.2 IMPRESSION: NORMAL MAMMOGRAM. BIRADS 1. BREAST DENSITY: a. The breasts are almost entirely fatty. BIRAD: 1 NEGATIVE RECOMMENDATION: ROUTINE SCREENING COMMENT: The patient has been notified of the results by letter per MQSA requirements. Additional no tification policies are in place for contacting patient with suspicious or incomplete findings. Quality ID #[id number]: The [employer] recommends an annual screening mammogram for women aged 40 years or over. This facility utilizes a reminder system to ensure that all patients receive reminder letters, and/or direct phone calls for appointments. This includes reminders for routine scr eening mammograms, diagnostic mammograms, or other Breast Imaging Interventions when appropriate. Th is patient will be placed in the appropriate reminder system. The [employer] (ACR) has developed recommendations for screening MRI of the breast s in certain patient populations, to be used in conjunction with mammography. Breast MRI surveillanc e may be appropriate for women with more than 20% lifetime risk of developing breast cancer as deter mined by genetic testing, significant family history of the disease, or history of mantle radiation f or Hodgkins Disease. ACR Practice Guidelines 2008. TECHNICAL DOCUMENTATION: FINDING NUMBER: (1) ASSESSMENT: (1) JOB ID: [id number] [employer]- All Rights Reserved
== END ==
LOC: WI 14:09
PROVIDERS: ATTEND Internal Medicine
DX: Z12.31 Encounter for screening mammogram for malignant neoplasm of breast (principal)
CPT/HCPCS: 77067; G0202

== ENCOUNTER 2017-10-10 12:30 | Emergency (ER) | payer SELFPAY ==
--- NOTE | 2017-10-10 13:06 | ER Document Report ---
ED Medical Screen (RME) - General Chief Complaint: Cough Stated Complaint: FLU LIKE SYMPTOMS Time Seen by Provider: 10/10/17 13:00 Notes: 42-year-old female patient reports a three-week history of upper respiratory tract infection symptoms. She saw her primary care provider 2 weeks ago and was prescribed a Z-Christopher for sinus and ear infections. She reports that she got better while she is taking it, but 2 days after she finished day 5 her new symptoms of coughing, hoarseness/laryngitis, body aches, shortness of breath developed. She has been using family members nebulizer which helps a little. She does report fevers. She did get a flu shot this year. She is not on any blood thinners at this time or antiplatelet medications. I have greeted and performed a rapid initial assessment of this patient. A comprehensive ED assessment and evaluation of the patient, analysis of test results and completion of the medical decision making process will be conducted by additional ED providers. TRAVEL OUTSIDE OF THE [place] IN LAST 30 DAYS: No - Related Data Allergies/Adverse Reactions: hydrochlorothiazide [Hydrochlorothiazide] Allergy (Severe, Verified 10/10/17 12: 31) Hives Past Medical History - Social History Frequency of alcohol use: None Drug Abuse: None - Past Medical History Cardiac Medical History: Reports: Hx Atrial Fibrillation - Ablation done, Hx Hypercholesterolemia, Hx Hypertension Pulmonary Medical History: Reports: Hx Bronchitis, Hx Sleep Apnea Neurological Medical History: Reports: Hx Migraine Endocrine Medical History: Reports: Hx Diabetes Mellitus Type 2 Renal/ Medical History: Reports: Hx Kidney Stones, Hx Ovarian Cysts. Denies: Hx Peritoneal Dialysis GI Medical History: Reports: Hx Gastroesophageal Reflux Disease Musculoskeltal Medical History: Reports Hx Gout, Reports Hx Musculoskeletal Deformity Psychiatric Medical History: Reports: Hx Depression Traumatic Medical History: Reports: Hx Traumatic Brain Injury - CLOSED Past Surgical History: Reports: Hx Cardiac Surgery - ablation, heart cath in march, Hx Orthopedic Surgery - Immunizations Immunizations up to date: Yes Hx Diphtheria, Pertussis, Tetanus Vaccination: Yes Physical Exam - Vital signs Vitals: Temp Pulse Resp BP Pulse Ox 97.9 F 86 20 163/96 H 97 10/10/17 12:35 10/10/17 12:35 10/10/17 12:35 10/10/17 12:35 10/10/17 12:35 Course - Vital Signs Vital signs: Temp Pulse Resp BP Pulse Ox 97.9 F 86 20 163/96 H 97 10/10/17 12:35 10/10/17 12:35 10/10/17 12:35 10/10/17 12:35 10/10/17 12:35
[2017-10-10 13:26] LABS: ABSOLUTE BASOPHILS # (AUTO) 0.1 10^3/uL (0.0-0.2); ABSOLUTE EOSINOPHILS # (AUTO) 0.5 10^3/uL (0.0-0.6); ABSOLUTE LYMPHOCYTES (AUTO) 4.3 10^3/uL (0.5-4.7); ABSOLUTE MONOCYTES (AUTO) 0.9 10^3/uL (0.1-1.4); ABSOLUTE NEUT (AUTO) 6.5 10^3/uL (1.7-8.2); BASOPHILS % (AUTO) 0.9 % (0-2); EOSINOPHILS % (AUTO) 4.2 % (0-6); HEMATOCRIT 40.7 % (36.0-47.0); HEMOGLOBIN 13.2 g/dL (12.0-15.5); HGB HCT DIFFERENCE -1.1; LYMPHOCYTES % (AUTO) 34.7 % (13-45); MEAN CORPUSCULAR HEMOGLOBIN 27.8 pg (27.0-33.4); MEAN CORPUSCULAR HGB CONC 32.4 g/dL (32.0-36.0); MEAN CORPUSCULAR VOLUME 86 fl (80-97); MONOCYTES % (AUTO) 7.4 % (3-13); RED BLOOD COUNT 4.75 10^6/uL (3.72-5.28); RED CELL DISTRIBUTION WIDTH 14.6 % (11.5-14.0); SEGMENTED NEUTROPHILS % (AUTO) 52.8 % (42-78); WHITE BLOOD COUNT 12.3 10^3/uL (4.0-10.5)
--- NOTE | 2017-10-10 13:35 | RADIOLOGY REPORT (SQ) ---
EXAM DESCRIPTION: CHEST PA/LAT COMPLETED DATE/TIME: 10/10/2017 1:23 pm REASON FOR STUDY: Cough, laryngitis, blood in sputum COMPARISON: TWO-VIEW CHEST 04/19/2017 EXAM PARAMETERS: NUMBER OF VIEWS: two views TECHNIQUE: Digital Frontal and Lateral radiographic views of the chest acquired. RADIATION DOSE: NA LIMITATIONS: none FINDINGS: LUNGS AND PLEURA: No opacities, masses or pneumothorax. No pleural effusion. MEDIASTINUM AND HILAR STRUCTURES: No masses or contour abnormalities. HEART AND VASCULAR STRUCTURES: Heart normal size. No evidence for failure. BONES: No acute findings. HARDWARE: None in the chest. OTHER: No other significant finding. IMPRESSION: NO SIGNIFICANT RADIOGRAPHIC FINDING IN THE CHEST. TECHNICAL DOCUMENTATION: JOB ID: [id number] [email or web address]- All Rights Reserved
[2017-10-10 13:45] LABS: ALANINE AMINOTRANSFERASE 45 U/L (9-52); ALBUMIN 4.1 g/dL (3.5-5.0); ALKALINE PHOSPHATASE 77 U/L (38-126); ANION GAP 9 (5-19); ASPARTATE AMINO TRANSFERASE 34 U/L (14-36); BILIRUBIN,DIRECT 0.2 mg/dL (0.0-0.4); BILIRUBIN,TOTAL 0.4 mg/dL (0.2-1.3); BLOOD UREA NITROGEN 13 mg/dL (7-20); CALCIUM 8.8 mg/dL (8.4-10.2); CARBON DIOXIDE 31 mmol/L (22-30); CHLORIDE 104 mmol/L (98-107); CREATININE RESULT 0.57 mg/dL (0.52-1.25); GLUCOSE 114 mg/dL (75-110); POTASSIUM 4.5 mmol/L (3.6-5.0); SODIUM 143.7 mmol/L (137-145); TOTAL PROTEIN 7.7 g/dL (6.3-8.2)
[2017-10-10] MEDS ORDERED: PREDNISONE 20 MG TABLET PO ONE (15:04)
[2017-10-10] MEDS ORDERED: IPRATROPIUM/ALBUTEROL 0.5-2.5 MG/3 ML AMPUL NEB ONE (15:04)
--- NOTE | 2017-10-10 15:47 | ER Document Report ---
ED General - General Chief Complaint: Cough Stated Complaint: FLU LIKE SYMPTOMS Time Seen by Provider: 10/10/17 13:00 Mode of Arrival: Ambulatory Information source: Patient Notes: 42-year-old female presents with complaints of cough of 3-week duration earache which was initially on the left side treated with antibiotics and then is now on the right side. Patient denies any fevers or chills denies any blood-tinged sputum but does admit that she vomited one time and there was blood in the last week TRAVEL OUTSIDE OF THE [place] IN LAST 30 DAYS: No - HPI Onset: Other - 3 week duration Onset/Duration: Waxing and waning Quality of pain: Achy Severity: Mild Pain Level: 1 Associated symptoms: Productive cough, Shortness of breath, Other - Loss of voice Exacerbated by: Denies Relieved by: Denies Similar symptoms previously: Yes Recently seen / treated by doctor: Yes - Recently placed on Bactrim and azithromycin - Related Data Allergies/Adverse Reactions: hydrochlorothiazide [Hydrochlorothiazide] Allergy (Severe, Verified 10/10/17 12: 31) Hives Past Medical History - Social History Smoking Status: Never Smoker Cigarette use (# per day): No Chew tobacco use (# tins/day): No Smoking Education Provided: No Frequency of alcohol use: None Drug Abuse: None Family History: Reviewed & Not Pertinent Patient has suicidal ideation: No Patient has homicidal ideation: No - Past Medical History Cardiac Medical History: Reports: Hx Atrial Fibrillation - Ablation done, Hx Hypercholesterolemia, Hx Hypertension Pulmonary Medical History: Reports: Hx Bronchitis, Hx Sleep Apnea Neurological Medical History: Reports: Hx Migraine Endocrine Medical History: Reports: Hx Diabetes Mellitus Type 2 Renal/ Medical History: Reports: Hx Kidney Stones, Hx Ovarian Cysts. Denies: Hx Peritoneal Dialysis GI Medical History: Reports: Hx Gastroesophageal Reflux Disease Musculoskeltal Medical History: Reports Hx Gout, Reports Hx Musculoskeletal Deformity Psychiatric Medical History: Reports: Hx Depression Traumatic Medical History: Reports: Hx Traumatic Brain Injury - CLOSED Past Surgical History: Reports: Hx Cardiac Surgery - ablation, heart cath in march, Hx Orthopedic Surgery - Immunizations Immunizations up to date: Yes Hx Diphtheria, Pertussis, Tetanus Vaccination: Yes Review of Systems - Review of Systems Notes: REVIEW OF SYSTEMS: CONSTITUTIONAL : Denies fever, chills, or sweats. Denies recent illness. EENT: Admits to loss of voice CARDIOVASCULAR: Denies chest pain. Denies palpitations or racing or irregular heart beat. Denies ankle edema. RESPIRATORY: admits to cough sob GASTROINTESTINAL: admits to vomiting blood 1x GENITOURINARY: Denies difficulty urinating, painful urination, burning, frequency, blood in urine, or discharge. FEMALE GENITOURINARY: Denies vaginal bleeding, heavy or abnormal periods, irregular periods. Denies vaginal discharge or odor. MUSCULOSKELETAL: Denies back or neck pain or stiffness. Denies joint pain or swelling. SKIN: Denies rash, lesions or sores. HEMATOLOGIC : Denies easy bruising or bleeding. LYMPHATIC: Denies swollen, enlarged glands. NEUROLOGICAL: Denies confusion or altered mental status. Denies passing out or loss of consciousness. Denies dizziness or lightheadedness. Denies headache. Denies weakness or paralysis or loss of use of either side. Denies problems with gait or speech. Denies sensory loss, numbness, or tingling. Denies seizures. PSYCHIATRIC: Denies anxiety or stress. Denies depression, suicidal ideation, or homicidal ideation. ALL OTHER SYSTEMS REVIEWED AND NEGATIVE. PHYSICAL EXAMINATION: GENERAL: Well-appearing, well-nourished and in no acute distress. HEAD: Atraumatic, normocephalic. EYES: Pupils equal round and reactive to light, extraocular movements intact, conjunctiva are normal. ENT: right tm erythema NECK: Normal range of motion, supple without lymphadenopathy LUNGS: Inspiratory expiratory wheezing HEART: Regular rate and rhythm without murmurs ABDOMEN: Soft, nontender, nondistended abdomen. No guarding, no rebound. No masses appreciated. Female : deferred Musculoskeletal: Normal range of motion, no pitting or edema. No cyanosis. NEUROLOGICAL: Cranial nerves grossly intact. Normal speech, normal gait. Normal sensory, motor exams PSYCH: Normal mood, normal affect. SKIN: Warm, Dry, normal turgor, no rashes or lesions noted. Dictation was performed using [id number] voice recognition software Physical Exam - Vital signs Vitals: Temp Pulse Resp BP Pulse Ox 97.9 F 86 20 163/96 H 97 10/10/17 12:35 10/10/17 12:35 10/10/17 12:35 10/10/17 12:35 10/10/17 12:35 Course - Re-evaluation Re-evalutation: 10/10/17 15:45 Patient otherwise is in no distress at this time, does have some wheezing, She was given breathing treatments and her wheezing did resolve. She will be discharged home on steroids, with antibiotics 10/10/17 22:50 Patient instructed on risks and benefits of medications prescribed. Denies any concerns regarding such. After performing a Medical Screening Examination, I estimate there is LOW risk for ACUTE CORONARY SYNDROME, PULMONARY EMBOLI, RESPIRATORY FAILURE, SEPSIS OR MENINGITIS, thus I consider the discharge disposition reasonable. I have reevaluated this patient multiple times and no significant life threatening changes are noted. The patient and I have discussed the diagnosis and risks, and we agree with discharging home with close follow-up. We also discussed returning to the Emergency Department immediately if new or worsening symptoms occur. We have discussed the symptoms which are most concerning (e.g., changing or worsening pain, trouble swallowing or breathing, neck stiffness, fever) that necessitate immediate return. 10/10/17 22:51 - Vital Signs Vital signs: Temp Pulse Resp BP Pulse Ox 98.5 F 90 18 142/67 H 94 10/10/17 16:27 10/10/17 16:27 10/10/17 16:27 10/10/17 16:27 10/10/17 16:27 - Laboratory Result Diagrams: 10/10/17 13:13 10/10/17 13:13 Laboratory results interpreted by me: 10/10/17 10/10/17 13:13 13:13 WBC 12.3 H RDW 14.6 H Carbon Dioxide 31 H Glucose 114 H - Diagnostic Test Radiology reviewed: Image reviewed, Reports reviewed Discharge - Discharge Clinical Impression: Bronchitis Otitis media Qualifiers: Otitis media type: unspecified Chronicity: acute Qualified Code(s): H66.90 - Otitis media, unspecified, unspecified ear Condition: Stable Disposition: HOME, SELF-CARE Instructions: Pneumonia ([facility]) Additional Instructions: You must watch your blood sugar very closely since youwill be placed on steroids return immediately if there are any other concerns Follow up with your physician tomorrow for further care or return to the ED IMMEDIATELY if symptoms worsen or new concerns occur. If you cannot afford to follow up with your primary care physician a list of low cost clinics have been provided at the end of your discharge papers as well. Prescriptions: Levofloxacin [Levaquin 750 mg Tablet] 750 mg PO DAILY #5 tablet Prednisone [Deltasone 20 mg Tablet] 3 tab PO DAILY 5 Days tablet Forms: Return to Work
[2017-10-10] MEDS ORDERED: ALBUTEROL SULFATE HFA (90 MCG/PUFF) 8 GM MDI (1 MDI/ER DISP) IH PRN (16:12)
[2017-10-10 16:45] VITALS: BP 142/67
== END 2017-10-10 16:30 | disposition home or self-care (01) ==
LOC: ER 12:30
DX: J40 Bronchitis, not specified as acute or chronic (principal); H66.91 Otitis media, unspecified, right ear; R05 Cough; H92.01 Otalgia, right ear; R06.02 Shortness of breath
CPT/HCPCS: 94640; 99283; 36415; 85025; 80053; 87804; 71020; J7512; J3490; J7620

== ENCOUNTER 2018-03-04 11:33 | Emergency (ER) | payer BC ==
[2018-03-04] MEDS ORDERED: MORPHINE SULFATE 10 MG/ML INJ IV ONE (12:07)
--- NOTE | 2018-03-04 12:10 | ER Document Report ---
ED Medical Screen (RME) - General Chief Complaint: Abdominal Pain Stated Complaint: ABDOMINAL PAIN Time Seen by Provider: 03/04/18 12:06 TRAVEL OUTSIDE OF THE [place] IN LAST 30 DAYS: No - HPI Notes: 03/04/18 12:08 RAPID MEDICAL EVALUATION DISCLOSURE I have seen this patient as part of a Rapid Medical Evaluation and, if applicable, placed any initially appropriate orders. The patient will be seen and fully evaluated, including a full history and physical exam, by a provider ( in Main ED or Fast Track) when a room becomes available. 42-year-old obese female presents with 2 day history of left lower quadrant abdominal pain. Worse with movement coughing and walking. She states she has had right ovarian cysts with similar pain in the past. No nausea vomiting diarrhea vaginal discharge dysuria frequency or fevers. No history of diverticulitis. 03/04/18 12:09 Abdominal exam: Bowel sounds no rebound rigidity. Mild guarding with palpation of the left lower quadrant. No rash abscess or cyst erythema to the abdominal wall. Exam is limited due to body habitus. - Related Data Allergies/Adverse Reactions: hydrochlorothiazide [Hydrochlorothiazide] Allergy (Severe, Verified 03/04/18 11: 34) Hives Past Medical History - Social History Chew tobacco use (# tins/day): No Frequency of alcohol use: None Drug Abuse: None - Past Medical History Cardiac Medical History: Reports: Hx Atrial Fibrillation - Ablation done, Hx Hypercholesterolemia, Hx Hypertension Pulmonary Medical History: Reports: Hx Bronchitis, Hx Sleep Apnea Neurological Medical History: Reports: Hx Migraine Endocrine Medical History: Reports: Hx Diabetes Mellitus Type 2 Renal/ Medical History: Reports: Hx Kidney Stones, Hx Ovarian Cysts. Denies: Hx Peritoneal Dialysis GI Medical History: Reports: Hx Gastroesophageal Reflux Disease Musculoskeltal Medical History: Reports Hx Gout, Reports Hx Musculoskeletal Deformity Psychiatric Medical History: Reports: Hx Depression Traumatic Medical History: Reports: Hx Traumatic Brain Injury - CLOSED Past Surgical History: Reports: Hx Cardiac Surgery - ablation, heart cath in march, Hx Orthopedic Surgery - Immunizations Immunizations up to date: Yes Hx Diphtheria, Pertussis, Tetanus Vaccination: Yes Physical Exam - Vital signs Vitals: Temp Pulse Resp BP Pulse Ox 97.9 F 81 20 138/66 H 96 03/04/18 11:41 03/04/18 11:41 03/04/18 11:41 03/04/18 11:41 03/04/18 11:41 Course - Vital Signs Vital signs: Temp Pulse Resp BP Pulse Ox 97.9 F 81 20 138/66 H 96 03/04/18 11:41 03/04/18 11:41 03/04/18 11:41 03/04/18 11:41 03/04/18 11:41
[2018-03-04 12:51] LABS: ABSOLUTE BASOPHILS # (AUTO) 0.1 10^3/uL (0.0-0.2); ABSOLUTE EOSINOPHILS # (AUTO) 0.5 10^3/uL (0.0-0.6); ABSOLUTE LYMPHOCYTES (AUTO) 4.4 10^3/uL (0.5-4.7); ABSOLUTE NEUT (AUTO) 9.4 10^3/uL (1.7-8.2); BASOPHILS % (AUTO) 0.6 % (0-2); EOSINOPHILS % (AUTO) 3.3 % (0-6); HEMOGLOBIN 12.8 g/dL (12.0-15.5); LYMPHOCYTES % (AUTO) 28.5 % (13-45); MEAN CORPUSCULAR HEMOGLOBIN 27.5 pg (27.0-33.4); MEAN CORPUSCULAR HGB CONC 32.7 g/dL (32.0-36.0); MEAN CORPUSCULAR VOLUME 84 fl (80-97); MONOCYTES % (AUTO) 6.4 % (3-13); PLATELET COUNT 306 10^3/uL (150-450); RED BLOOD COUNT 4.64 10^6/uL (3.72-5.28); RED CELL DISTRIBUTION WIDTH 14.2 % (11.5-14.0); SEGMENTED NEUTROPHILS % (AUTO) 61.2 % (42-78); TOTAL CELLS COUNTED % (AUTO) 100 %; WHITE BLOOD COUNT 15.4 10^3/uL (4.0-10.5)
[2018-03-04 12:58] LABS: APPEARANCE,URINE SLIGHTLY-CLOUDY; BILIRUBIN,URINE NEGATIVE (NEGATIVE); GLUCOSE, URINE NEGATIVE (NEGATIVE); KETONES,URINE NEGATIVE (NEGATIVE); LEUKOCYTE ESTERASE,URINE SMALL (NEGATIVE); NITRITE,URINE NEGATIVE (NEGATIVE); PROTEIN,URINE 30 mg/dL (NEGATIVE); URINE SPECIFIC GRAVITY 1.029; UROBILINOGEN,URINE NEGATIVE mg/dL (<2.0)
[2018-03-04 13:02] LABS: COLOR,URINE YELLOW
[2018-03-04 13:11] LABS: ALANINE AMINOTRANSFERASE 32 U/L (9-52); ALBUMIN 3.8 g/dL (3.5-5.0); ALKALINE PHOSPHATASE 79 U/L (38-126); ANION GAP 13 (5-19); ASPARTATE AMINO TRANSFERASE 19 U/L (14-36); BILIRUBIN,DIRECT 0.3 mg/dL (0.0-0.4); BILIRUBIN,TOTAL 0.7 mg/dL (0.2-1.3); BLOOD UREA NITROGEN 10 mg/dL (7-20); CALCIUM 9.4 mg/dL (8.4-10.2); CARBON DIOXIDE 27 mmol/L (22-30); CHLORIDE 104 mmol/L (98-107); GLUCOSE 130 mg/dL (75-110); POTASSIUM 4.3 mmol/L (3.6-5.0); SODIUM 143.9 mmol/L (137-145); TOTAL PROTEIN 7.7 g/dL (6.3-8.2)
--- NOTE | 2018-03-04 14:22 | RADIOLOGY REPORT (SQ) ---
EXAM DESCRIPTION: CT ABD/PELVIS WITH IV ONLY COMPLETED DATE/TIME: 03/04/2018 2:09 pm REASON FOR STUDY: LLQ pain COMPARISON: None. TECHNIQUE: CT scan of the abdomen and pelvis performed using helical scanning technique with dynamic intravenous contrast injection. No oral contrast. Images reviewed with lung, soft tissue, and bone windows. Reconstructed coronal and sagittal MPR images reviewed. Delayed images for evaluation of the urinary system also acquired. All images stored on PACS. All CT scanners at this facility use dose modulation, iterative reconstruction, and/or weight based d osing when appropriate to reduce radiation dose to as low as reasonably achievable (ALARA). [facility]: Dose Right [facility]: CareDose [facility]: Dose Right [facility]: Teradose 4D [facility]: KnewCoin CONTRAST TYPE AND DOSE: 100 cc Isovue 370- low osmolar. RENAL FUNCTION: GFR > 60. RADIATION DOSE: . LIMITATIONS: None. FINDINGS: LOWER CHEST: No significant findings. No nodules or infiltrates. LIVER: Normal size. No masses. No dilated ducts. SPLEEN: Normal size. No focal lesions. PANCREAS: No masses. No significant calcifications. No adjacent inflammation or peripancreatic fluid collections. Pancreatic duct not dilated. GALLBLADDER: Gallstones. No inflammatory changes to suggest cholecystitis. ADRENAL GLANDS: No significant masses or asymmetry. RIGHT KIDNEY AND URETER: No solid masses. No significant calcifications. No hydronephrosis or hyd roureter. LEFT KIDNEY AND URETER: No solid masses. No significant calcifications. No hydronephrosis or hydr oureter. AORTA AND VESSELS: No aneurysm. No dissection. Renal arteries, SMA, celiac without stenosis. RETROPERITONEUM: No retroperitoneal adenopathy, hemorrhage or masses. BOWEL AND PERITONEAL CAVITY: No masses or inflammatory changes. No free fluid or peritoneal masses. APPENDIX: Normal. PELVIS: 4.5 cm cyst right ovary. No free fluid. Normal bladder. ABDOMINAL WALL: No masses. No hernias. BONES: No significant or acute findings. OTHER: No other significant finding. IMPRESSION: 1. Cholelithiasis. 2. Right ovarian cyst. 1. TECHNICAL DOCUMENTATION: JOB ID: [id number] Quality ID # [id number]: Final reports with documentation of one or more dose reduction techniques (e.g., Au tomated exposure control, adjustment of the mA and/or kV according to patient size, use of iterative reconstruction technique) 2010 [employer]- All Rights Reserved Reading location - IP/workstation name: Unknown
[2018-03-04] MEDS ORDERED: DICYCLOMINE HCL 20 MG TABLET PO ONE (14:42)
--- NOTE | 2018-03-04 14:48 | ER Document Report ---
ED General - General Chief Complaint: Abdominal Pain Stated Complaint: ABDOMINAL PAIN Time Seen by Provider: 03/04/18 12:06 TRAVEL OUTSIDE OF THE [place] IN LAST 30 DAYS: No - HPI Patient complains to provider of: Abdominal pain Notes: Patient coming in with 3 day history of upper quadrant abdominal pain no nausea vomiting or diarrhea. Patient states similar to when she has ovarian cyst in the past. Patient resting company upon my evaluation. Patient is extremely obese. States the pain is worsened with moving around. Denies any fevers or chills - Related Data Allergies/Adverse Reactions: hydrochlorothiazide [Hydrochlorothiazide] Allergy (Severe, Verified 03/04/18 11: 34) Hives Past Medical History - Social History Smoking Status: Never Smoker Chew tobacco use (# tins/day): No Frequency of alcohol use: None Drug Abuse: None Family History: Reviewed & Not Pertinent Patient has suicidal ideation: No Patient has homicidal ideation: No - Past Medical History Cardiac Medical History: Reports: Hx Atrial Fibrillation - Ablation done, Hx Hypercholesterolemia, Hx Hypertension Pulmonary Medical History: Reports: Hx Bronchitis, Hx Sleep Apnea Neurological Medical History: Reports: Hx Migraine Endocrine Medical History: Reports: Hx Diabetes Mellitus Type 2 Renal/ Medical History: Reports: Hx Kidney Stones, Hx Ovarian Cysts. Denies: Hx Peritoneal Dialysis GI Medical History: Reports: Hx Gastroesophageal Reflux Disease Musculoskeltal Medical History: Reports Hx Gout, Reports Hx Musculoskeletal Deformity Psychiatric Medical History: Reports: Hx Depression Traumatic Medical History: Reports: Hx Traumatic Brain Injury - CLOSED Past Surgical History: Reports: Hx Cardiac Surgery - ablation, heart cath in march, Hx Orthopedic Surgery - Immunizations Immunizations up to date: Yes Hx Diphtheria, Pertussis, Tetanus Vaccination: Yes Review of Systems - Review of Systems Constitutional: No symptoms reported EENT: No symptoms reported Cardiovascular: No symptoms reported Respiratory: No symptoms reported Gastrointestinal: Abdominal pain Genitourinary: No symptoms reported Female Genitourinary: No symptoms reported Musculoskeletal: No symptoms reported Skin: No symptoms reported Hematologic/Lymphatic: No symptoms reported Neurological/Psychological: No symptoms reported -: Yes All other systems reviewed and negative Physical Exam - Vital signs Vitals: Temp Pulse Resp BP Pulse Ox 97.9 F 81 20 138/66 H 96 03/04/18 11:41 03/04/18 11:41 03/04/18 11:41 03/04/18 11:41 03/04/18 11:41 Interpretation: Normal - General General appearance: Appears well, Alert - HEENT Head: Normocephalic, Atraumatic Eyes: Normal Pupils: PERRL - Respiratory Respiratory status: No respiratory distress Chest status: Nontender Breath sounds: Normal Chest palpation: Normal - Cardiovascular Rhythm: Regular Heart sounds: Normal auscultation Murmur: No - Abdominal Inspection: Obese Distension: No distension Bowel sounds: Normal Tenderness: Nontender Organomegaly: No organomegaly - Back Back: Normal, Nontender - Extremities General upper extremity: Normal inspection, Nontender, Normal color, Normal ROM , Normal temperature General lower extremity: Normal inspection, Nontender, Normal color, Normal ROM , Normal temperature, Normal weight bearing. No: Debby's sign - Neurological Neuro grossly intact: Yes Cognition: Normal Orientation: AAOx4 Sandra Coma Scale Eye Opening: Spontaneous Sandra Coma Scale Verbal: Oriented Sandra Coma Scale Motor: Obeys Commands Eagar Coma Scale Total: 15 Speech: Normal Motor strength normal: LUE, RUE, LLE, RLE Sensory: Normal - Psychological Associated symptoms: Normal affect, Normal mood - Skin Skin Temperature: Warm Skin Moisture: Dry Skin Color: Normal Course - Re-evaluation Re-evalutation: 03/04/18 22:15 The patient presents with abdominal pain without signs of peritonitis or other life-threatening or serious etiology. The patient appears stable for discharge and has been instructed to return immediately if the symptoms worsen in any way , or in 8-12hr if not improved for re-evaluation. The patient has been instructed to return if the symptoms worsen or change in any way. Patient does have signs of possible - Vital Signs Vital signs: Temp Pulse Resp BP Pulse Ox 98.0 F 80 18 150/75 H 97 03/04/18 14:57 03/04/18 14:57 03/04/18 14:57 03/04/18 14:57 03/04/18 14:57 - Laboratory Result Diagrams: 03/04/18 12:34 03/04/18 12:34 Laboratory results interpreted by me: 03/04/18 03/04/18 03/04/18 12:34 12:34 12:34 WBC 15.4 H RDW 14.2 H Absolute Neutrophils 9.4 H Glucose 130 H Urine Protein 30 H Urine Blood LARGE H Ur Leukocyte Esterase SMALL H Discharge - Discharge Clinical Impression: Abdominal pain Qualifiers: Abdominal location: left lower quadrant Qualified Code(s): R10.32 - Left lower quadrant pain Ovarian cyst Qualifiers: Laterality: right Qualified Code(s): N83.201 - Unspecified ovarian cyst, right side Diarrhea Qualifiers: Diarrhea type: unspecified type Qualified Code(s): R19.7 - Diarrhea, unspecified Condition: Good Disposition: HOME, SELF-CARE Instructions: Abdominal Pain ([facility]), Diarrhea, Nonspecific ([facility]), Ovarian Cyst ( [facility]) Additional Instructions: Your CAT scan shows a right ovarian cyst. There is no other signs of any significant infection and laboratory studies are on your CAT scan. Please follow-up with your primary care physician. Recommend Tylenol Motrin for pain control I will give you Bentyl for your lower abdominal pain which is more likely caused by the diarrhea. I recommend follow-up with [employer] for your ovarian cyst. Prescriptions: Dicyclomine HCl [Bentyl 20 mg Tablet] 20 mg PO QID #30 tablet Ibuprofen [Motrin 800 mg Tablet] 800 mg PO Q8H PRN #30 tab PRN Reason: Ondansetron [Zofran Odt] 4 mg PO Q6 PRN #30 tab.rapdis PRN Reason: For Nausea/Vomiting Referrals: CHANI CALVILLO MD [Primary Care Provider] - Follow up as needed
[2018-03-04 14:58] VITALS: BP 150/75
== END 2018-03-04 14:57 | disposition home or self-care (01) ==
LOC: ER 11:33
DX: N83.201 Unspecified ovarian cyst, right side (principal); R19.7 Diarrhea, unspecified; R10.32 Left lower quadrant pain; R10.10 Upper abdominal pain, unspecified; I10 Essential (primary) hypertension; Z88.8 Allergy status to other drugs, medicaments and biological substances; E11.9 Type 2 diabetes mellitus without complications; Z87.19 Personal history of other diseases of the digestive system
CPT/HCPCS: 99284; 96374; 36415; 85025; 81025; 80053; 81001; 74177; J3490; J2270

== ENCOUNTER 2018-03-23 15:24 | Emergency (ER) | payer BC ==
[2018-03-23 15:30] VITALS: BP 155/91
[2018-03-23] MEDS ORDERED: KETOROLAC TROMETHAMINE 60 MG/2 ML SDV IM ONE (16:51)
--- NOTE | 2018-03-23 16:52 | ER Document Report ---
ED General - General Chief Complaint: Flank Pain Stated Complaint: FLANK PAIN Time Seen by Provider: 03/23/18 16:48 Notes: Chief complaint: Back pain History of complain:( obtained from----patient) 42 years old female sent over by the primary care for persistent lower back pain for the last 3 days. Nonradiating not associated with any nausea vomiting. No dysuria frequency or hematuria. Denies any constitutional symptoms Onset: 3 days gradual onset Duration: Gradual Severity: Appears to be severe Quality: Sharp Context: Unknown change of position Exacerbating factor and relieving factors: REVIEW OF SYSTEMS: CONSTITUTIONAL : Denies fever, chills, or sweats. Denies recent illness. EENT: Denies eye, ear, throat, or mouth pain or symptoms. Denies nasal or sinus congestion or discharge. Denies throat, tongue, or mouth swelling or difficulty swallowing. CARDIOVASCULAR: Denies chest pain. Denies palpitations or racing or irregular heart beat. Denies ankle edema. RESPIRATORY: Denies cough, cold, or chest congestion. Denies shortness of breath, difficulty breathing, or wheezing. GASTROINTESTINAL: Denies distention. Denies nausea, vomiting, or diarrhea. Denies blood in vomitus, stools, or per rectum. Denies black, tarry stools. Denies constipation. GENITOURINARY: Denies difficulty urinating, painful urination, burning, frequency, blood in urine, or discharge. FEMALE GENITOURINARY: Denies vaginal bleeding, heavy or abnormal periods, irregular periods. Denies vaginal discharge or odor. MUSCULOSKELETAL: Denies back or neck pain or stiffness. Denies joint pain or swelling. SKIN: Denies rash, lesions or sores. HEMATOLOGIC : Denies easy bruising or bleeding. LYMPHATIC: Denies swollen, enlarged glands. NEUROLOGICAL: Denies confusion or altered mental status. Denies passing out or loss of consciousness. Denies dizziness or lightheadedness. Denies headache. Denies weakness or paralysis or loss of use of either side. Denies problems with gait or speech. Denies sensory loss, numbness, or tingling. Denies seizures. PSYCHIATRIC: Denies anxiety or stress. Denies depression, suicidal ideation, or homicidal ideation. ALL OTHER SYSTEMS REVIEWED AND NEGATIVE. PHYSICAL EXAMINATION: GENERAL: Well-appearing, well-nourished and in acute distress. Morbid obesity HEAD: Atraumatic, normocephalic. EYES: Pupils equal round and reactive to light, extraocular movements intact, conjunctiva are normal. ENT: Nares patent, oropharynx clear without exudates. Moist mucous membranes. NECK: Normal range of motion, supple without lymphadenopathy LUNGS: Breath sounds clear to auscultation bilaterally and equal. No wheezes rales or rhonchi. HEART: Regular rate and rhythm without murmurs ABDOMEN: Soft, nontender, nondistended abdomen. No guarding, no rebound. No masses appreciated. Examination of genitals-deferred Musculoskeletal: Normal range of motion, no pitting or edema. No cyanosis. Examination of the back-even before I gently touch she started screaming with pain and started to cry. NEUROLOGICAL: Cranial nerves grossly intact. Normal speech, normal gait. Normal sensory, motor exams PSYCH: Normal mood, normal affect. SKIN: Warm, Dry, normal turgor, no rashes or lesions noted. Dictation was performed using [facility] voice recognition software TRAVEL OUTSIDE OF THE [place] IN LAST 30 DAYS: No - Related Data Allergies/Adverse Reactions: hydrochlorothiazide [Hydrochlorothiazide] Allergy (Severe, Verified 03/23/18 15: 27) Hives Past Medical History - Social History Smoking Status: Never Smoker Chew tobacco use (# tins/day): No Frequency of alcohol use: None Drug Abuse: None Family History: Reviewed & Not Pertinent Patient has suicidal ideation: No Patient has homicidal ideation: No - Past Medical History Cardiac Medical History: Reports: Hx Atrial Fibrillation - Ablation done, Hx Hypercholesterolemia, Hx Hypertension Pulmonary Medical History: Reports: Hx Bronchitis, Hx Sleep Apnea Neurological Medical History: Reports: Hx Migraine Endocrine Medical History: Reports: Hx Diabetes Mellitus Type 2 Renal/ Medical History: Reports: Hx Kidney Stones, Hx Ovarian Cysts. Denies: Hx Peritoneal Dialysis GI Medical History: Reports: Hx Gastroesophageal Reflux Disease Musculoskeltal Medical History: Reports Hx Gout, Reports Hx Musculoskeletal Deformity Psychiatric Medical History: Reports: Hx Depression Traumatic Medical History: Reports: Hx Traumatic Brain Injury - CLOSED Past Surgical History: Reports: Hx Cardiac Surgery - ablation, heart cath in march, Hx Orthopedic Surgery - Immunizations Immunizations up to date: Yes Hx Diphtheria, Pertussis, Tetanus Vaccination: Yes Physical Exam - Vital signs Vitals: Temp Pulse Resp BP Pulse Ox 97.9 F 89 18 155/91 H 94 03/23/18 15:28 03/23/18 15:28 03/23/18 15:28 03/23/18 15:28 03/23/18 15:28 Course - Vital Signs Vital signs: Temp Pulse Resp BP Pulse Ox 97.9 F 89 18 155/91 H 94 03/23/18 15:28 03/23/18 15:28 03/23/18 15:28 03/23/18 15:28 03/23/18 15:28
[2018-03-23 17:22] LABS: ABSOLUTE BASOPHILS # (AUTO) 0.1 10^3/uL (0.0-0.2); ABSOLUTE EOSINOPHILS # (AUTO) 0.6 10^3/uL (0.0-0.6); ABSOLUTE LYMPHOCYTES (AUTO) 3.8 10^3/uL (0.5-4.7); ABSOLUTE MONOCYTES (AUTO) 0.8 10^3/uL (0.1-1.4); ABSOLUTE NEUT (AUTO) 7.8 10^3/uL (1.7-8.2); BASOPHILS % (AUTO) 0.9 % (0-2); EOSINOPHILS % (AUTO) 4.2 % (0-6); HEMATOCRIT 39.6 % (36.0-47.0); HEMOGLOBIN 12.9 g/dL (12.0-15.5); LYMPHOCYTES % (AUTO) 29.3 % (13-45); MEAN CORPUSCULAR HEMOGLOBIN 27.5 pg (27.0-33.4); MEAN CORPUSCULAR HGB CONC 32.5 g/dL (32.0-36.0); MEAN CORPUSCULAR VOLUME 85 fl (80-97); MONOCYTES % (AUTO) 5.9 % (3-13); PLATELET COUNT 293 10^3/uL (150-450); RED BLOOD COUNT 4.68 10^6/uL (3.72-5.28); RED CELL DISTRIBUTION WIDTH 14.7 % (11.5-14.0); SEGMENTED NEUTROPHILS % (AUTO) 59.7 % (42-78); TOTAL CELLS COUNTED % (AUTO) 100 %
[2018-03-23 17:42] LABS: ALANINE AMINOTRANSFERASE 24 U/L (9-52); ALBUMIN 4.1 g/dL (3.5-5.0); ALKALINE PHOSPHATASE 72 U/L (38-126); ANION GAP 10 (5-19); ASPARTATE AMINO TRANSFERASE 21 U/L (14-36); BILIRUBIN,DIRECT 0.3 mg/dL (0.0-0.4); BILIRUBIN,TOTAL 0.5 mg/dL (0.2-1.3); BLOOD UREA NITROGEN 9 mg/dL (7-20); CALCIUM 9.3 mg/dL (8.4-10.2); CARBON DIOXIDE 27 mmol/L (22-30); CHLORIDE 104 mmol/L (98-107); GLUCOSE 112 mg/dL (75-110); LIPASE 61.1 U/L (23-300); POTASSIUM 4.5 mmol/L (3.6-5.0); SODIUM 141.4 mmol/L (137-145)
--- NOTE | 2018-03-23 18:13 | RADIOLOGY REPORT (SQ) ---
EXAM DESCRIPTION: ACUTE ABDOMEN SERIES COMPLETED DATE/TIME: 03/23/2018 5:57 pm REASON FOR STUDY: Back pain COMPARISON: None. NUMBER OF VIEWS: Three views. TECHNIQUE: Frontal chest, supine abdomen and upright/decubitus abdomen radiographic images acquired. LIMITATIONS: Study is limited due to the patient's body habitus. FINDINGS: CHEST: Lungs clear of infiltrates. FREE AIR: None. No abnormal gas collections. BOWEL GAS PATTERN: Nonobstructive pattern. No dilated loops or air fluid levels. CALCIFICATIONS: No suspicious calcifications. HARDWARE: None in the abdomen. SOFT TISSUES: No gross mass or suggestion of organomegaly. BONES: No acute fracture. No worrisome bone lesions. OTHER: No other significant finding. IMPRESSION: NO RADIOGRAPHIC EVIDENCE FOR ACUTE ABDOMINAL DISEASE. TECHNICAL DOCUMENTATION: JOB ID: [id number] 2012 [employer]- All Rights Reserved Reading location - IP/workstation name: [email or web address]
[2018-03-23 19:06] LABS: APPEARANCE,URINE CLEAR; BILIRUBIN,URINE NEGATIVE (NEGATIVE); COLOR,URINE YELLOW; GLUCOSE, URINE NEGATIVE (NEGATIVE); KETONES,URINE NEGATIVE (NEGATIVE); LEUKOCYTE ESTERASE,URINE MODERATE (NEGATIVE); NITRITE,URINE NEGATIVE (NEGATIVE); PROTEIN,URINE NEGATIVE (NEGATIVE); URINE SPECIFIC GRAVITY 1.021; UROBILINOGEN,URINE NEGATIVE mg/dL (<2.0)
[2018-03-23] MEDS ORDERED: LIDOCAINE 5% (700 MG) TRANSDERMAL ADH..PATCH TP ONE (19:42)
[2018-03-23] MEDS ORDERED: SULFAMETHOXAZOLE/TRIMETHOPRIM 800-160 MG TABLET PO ONE (20:23)
[2018-03-23] MEDS ORDERED: TRAMADOL HCL 50 MG TABLET PO ONE (21:53)
--- NOTE | 2018-03-23 22:00 | ER Document Report ---
ED General - General Chief Complaint: Flank Pain Stated Complaint: FLANK PAIN Time Seen by Provider: 03/23/18 16:48 TRAVEL OUTSIDE OF THE [place] IN LAST 30 DAYS: No - HPI Patient complains to provider of: Flank pain Notes: Patient coming in for left lower back pain flank pain ongoing for approximate last 24 hours. Patient denies any fevers chills nausea vomiting diarrhea. Patient states pain worsens whenever she moves. Patient states that she was seen in her [facility]OBATION COUNSELOR's office for evaluation and referred to ER for evaluation of her symptoms patient is lying in bed upon my evaluation denies any trauma recent antibiotics - Related Data Allergies/Adverse Reactions: hydrochlorothiazide [Hydrochlorothiazide] Allergy (Severe, Verified 03/23/18 15: 27) Hives Past Medical History - Social History Smoking Status: Never Smoker Chew tobacco use (# tins/day): No Frequency of alcohol use: None Drug Abuse: None Family History: Reviewed & Not Pertinent Patient has suicidal ideation: No Patient has homicidal ideation: No - Past Medical History Cardiac Medical History: Reports: Hx Atrial Fibrillation - Ablation done, Hx Hypercholesterolemia, Hx Hypertension Pulmonary Medical History: Reports: Hx Bronchitis, Hx Sleep Apnea Neurological Medical History: Reports: Hx Migraine Endocrine Medical History: Reports: Hx Diabetes Mellitus Type 2 Renal/ Medical History: Reports: Hx Kidney Stones, Hx Ovarian Cysts. Denies: Hx Peritoneal Dialysis GI Medical History: Reports: Hx Gastroesophageal Reflux Disease Musculoskeltal Medical History: Reports Hx Gout, Reports Hx Musculoskeletal Deformity Psychiatric Medical History: Reports: Hx Depression Traumatic Medical History: Reports: Hx Traumatic Brain Injury - CLOSED Past Surgical History: Reports: Hx Cardiac Surgery - ablation, heart cath in march, Hx Orthopedic Surgery - Immunizations Immunizations up to date: Yes Hx Diphtheria, Pertussis, Tetanus Vaccination: Yes Review of Systems - Review of Systems Constitutional: No symptoms reported EENT: No symptoms reported Cardiovascular: No symptoms reported Respiratory: No symptoms reported Gastrointestinal: No symptoms reported Genitourinary: Flank pain Female Genitourinary: No symptoms reported Musculoskeletal: No symptoms reported Skin: No symptoms reported Hematologic/Lymphatic: No symptoms reported Neurological/Psychological: No symptoms reported -: Yes All other systems reviewed and negative Physical Exam - Vital signs Vitals: Temp Pulse Resp BP Pulse Ox 97.9 F 89 18 155/91 H 94 03/23/18 15:28 03/23/18 15:28 03/23/18 15:28 03/23/18 15:28 03/23/18 15:28 Interpretation: Normal - General General appearance: Appears well, Alert - HEENT Head: Normocephalic, Atraumatic Eyes: Normal Pupils: PERRL - Respiratory Respiratory status: No respiratory distress Chest status: Nontender Breath sounds: Normal Chest palpation: Normal - Cardiovascular Rhythm: Regular Heart sounds: Normal auscultation Murmur: No - Abdominal Inspection: Normal Distension: No distension Bowel sounds: Normal Tenderness: Nontender Organomegaly: No organomegaly - Back Back: Normal, Tender - Significant tenderness in paraspinal region on the left side no signs of rashes trauma Midline spine normal no tenderness no step-offs or deformities - Extremities General upper extremity: Normal inspection, Nontender, Normal color, Normal ROM , Normal temperature General lower extremity: Normal inspection, Nontender, Normal color, Normal ROM , Normal temperature, Normal weight bearing. No: Debby's sign - Neurological Neuro grossly intact: Yes Cognition: Normal Orientation: AAOx4 [place] Coma Scale Eye Opening: Spontaneous [place] Coma Scale Verbal: Oriented [place] Coma Scale Motor: Obeys Commands [place] Coma Scale Total: 15 Speech: Normal Motor strength normal: LUE, RUE, LLE, RLE Sensory: Normal - Psychological Associated symptoms: Normal affect, Normal mood - Skin Skin Temperature: Warm Skin Moisture: Dry Skin Color: Normal Course - Re-evaluation Re-evalutation: 03/24/18 03:00 The patient presents with abdominal pain without signs of peritonitis or other life-threatening or serious etiology. The patient appears stable for discharge and has been instructed to return immediately if the symptoms worsen in any way , or in 8-12hr if not improved for re-evaluation. The patient has been instructed to return if the symptoms worsen or change in any way. Patient urinalysis shows signs of bacteria possibly a UTI with flank pain will go ahead and cover with Bactrim to also cover the pyelonephritis. Patient has had a recent CAT scan performed showing a right ovarian cyst patient is no tenderness of the right also patient had no signs of kidney stones this CAT scan was done possibly 2 weeks ago. Did not see need to reimage the patient patient was given medications for her pain antibiotics and discharged home - Vital Signs Vital signs: Temp Pulse Resp BP Pulse Ox 97.9 F 89 18 155/91 H 94 03/23/18 15:28 03/23/18 15:28 03/23/18 15:28 03/23/18 15:28 03/23/18 15:28 - Laboratory Result Diagrams: 03/23/18 17:15 03/23/18 17:15 Laboratory results interpreted by me: 03/23/18 03/23/18 03/23/18 17:15 17:15 18:42 WBC 13.0 H RDW 14.7 H Creatinine 0.51 L Glucose 112 H Ur Leukocyte Esterase MODERATE H Urine Ascorbic Acid 20 H Discharge - Discharge Clinical Impression: Flank pain UTI (urinary tract infection) Qualifiers: Urinary tract infection type: site unspecified Hematuria presence: without hematuria Qualified Code(s): N39.0 - Urinary tract infection, site not specified Disposition: HOME, SELF-CARE Instructions: Ice Massage ([facility]), Ice Packs ([facility]), Low Back Pain ([facility]), Oral Narcotic Medication ([facility]), Trimethoprim-Sulfa ([facility]), Urinary Tract Infection ( [facility]) Additional Instructions: Follow-up with your primary care physician. Return to ER symptoms worsen. At this time your urinalysis does show some signs of bacteria within your urinalysis possibly causing infection. However do believe your back pain is more muscle skeletal. Would recommend taking Tylenol Motrin together along with Ultram for pain control. Please take Bactrim signs we see there are possible infection within your urine. Follow-up with your primary care physician return to ER symptoms worsen Prescriptions: Ibuprofen [Motrin 600 Mg Tablet] 600 mg PO TID #30 tablet Sulfamethoxazole/Trimethoprim [Bactrim Ds Tablet] 1 each PO BID #20 tablet Tramadol HCl [Ultram 50 mg Tablet] 50 mg PO ASDIR PRN #20 tablet PRN Reason: Forms: Return to Work
== END 2018-03-23 22:12 | disposition home or self-care (01) ==
LOC: ER 15:24
DX: N39.0 Urinary tract infection, site not specified (principal); R10.9 Unspecified abdominal pain; I48.91 Unspecified atrial fibrillation; E78.00 Pure hypercholesterolemia, unspecified; I10 Essential (primary) hypertension; E11.9 Type 2 diabetes mellitus without complications; Z87.442 Personal history of urinary calculi
CPT/HCPCS: 99284; 96372; 36415; 83690; 85025; 80076; 80048; 81001; 74022; J1885

== ENCOUNTER 2018-04-26 22:32 | Emergency (ER) | payer BC ==
--- NOTE | 2018-04-26 23:32 | ER Document Report ---
ED Medical Screen (RME) - General Chief Complaint: Abdominal Pain Stated Complaint: ABDOMINAL PAIN AND BACK PAIN Mode of Arrival: Ambulatory Information source: Patient Notes: Patient is a 42 year old female presenting to the emergency department complaining of a possible rupture of an ovarian cyst onset today. States she has felt an ovarian cyst rupture before and states her symptoms today are similar. She states when she went to urinate today she felt something pop as she was standing up. Patient denies any fevers, recent trauma or taking blood thinners. Physical Exam: Patient appears uncomfortable, withdraws with only light touch to paraspinal right and left. I have greeted and performed a rapid initial assessment of this patient. A comprehensive ED assessment and evaluation of the patient, analysis of test results and completion of the medical decision making process will be conducted by additional ED providers. TRAVEL OUTSIDE OF THE [place] IN LAST 30 DAYS: No - Related Data Allergies/Adverse Reactions: hydrochlorothiazide [Hydrochlorothiazide] Allergy (Severe, Verified 03/23/18 15: 27) Hives Past Medical History - Past Medical History Cardiac Medical History: Reports: Hx Atrial Fibrillation - Ablation done, Hx Hypercholesterolemia, Hx Hypertension Pulmonary Medical History: Reports: Hx Bronchitis, Hx Sleep Apnea Neurological Medical History: Reports: Hx Migraine Endocrine Medical History: Reports: Hx Diabetes Mellitus Type 2 Renal/ Medical History: Reports: Hx Kidney Stones, Hx Ovarian Cysts. Denies: Hx Peritoneal Dialysis GI Medical History: Reports: Hx Gastroesophageal Reflux Disease Musculoskeltal Medical History: Reports Hx Gout, Reports Hx Musculoskeletal Deformity Psychiatric Medical History: Reports: Hx Depression Traumatic Medical History: Reports: Hx Traumatic Brain Injury - CLOSED Past Surgical History: Reports: Hx Cardiac Surgery - ablation, heart cath in march, Hx Orthopedic Surgery - Immunizations Immunizations up to date: Yes Hx Diphtheria, Pertussis, Tetanus Vaccination: Yes Physical Exam - Vital signs Vitals: Temp Pulse BP Pulse Ox 97.8 F 97 138/75 H 100 04/26/18 22:57 04/26/18 22:57 04/26/18 22:57 04/26/18 22:57 Course - Vital Signs Vital signs: Temp Pulse Resp BP Pulse Ox 97.8 F 97 138/75 H 100 04/26/18 22:57 04/26/18 22:57 04/26/18 22:57 04/26/18 22:57
[2018-04-27] MEDS ORDERED: OXYCODONE-ACETAMINOPHEN 5-325 MG TABLET PO ONE (02:27)
--- NOTE | 2018-04-27 02:29 | ER Document Report ---
ED GI/ - General Chief Complaint: Abdominal Pain Stated Complaint: ABDOMINAL PAIN AND BACK PAIN Time Seen by Provider: 04/26/18 23:28 Mode of Arrival: Ambulatory Notes: Patient is a 42-year-old female who comes emergency department for chief complaint of pain in her lower abdomen to pelvis on both sides but worse on the right with radiation to her flank. Symptoms intermittent for the past 3 days, today she felt sharp pain, prompting her to come get evaluated. She denies nausea vomiting, fever chills, dysuria, vaginal bleeding or discharge. She states she has a history of large ovarian cysts, a 6 cm cyst was previously diagnosed and was being monitored. Past medical history of kidney stones as well, states this does not feel like a kidney stone, type 2 diabetes, atrial fibrillation with ablation. TRAVEL OUTSIDE OF THE [place] IN LAST 30 DAYS: No - Related Data Allergies/Adverse Reactions: hydrochlorothiazide [Hydrochlorothiazide] Allergy (Severe, Verified 03/23/18 15: 27) Hives Past Medical History - General Information source: Patient - Social History Smoking Status: Never Smoker Drug Abuse: None Lives with: Family Family History: Reviewed & Not Pertinent - Past Medical History Cardiac Medical History: Reports: Hx Atrial Fibrillation - Ablation done, Hx Hypercholesterolemia, Hx Hypertension Pulmonary Medical History: Reports: Hx Bronchitis, Hx Sleep Apnea Neurological Medical History: Reports: Hx Migraine Endocrine Medical History: Reports: Hx Diabetes Mellitus Type 2 Renal/ Medical History: Reports: Hx Kidney Stones, Hx Ovarian Cysts. Denies: Hx Peritoneal Dialysis GI Medical History: Reports: Hx Gastroesophageal Reflux Disease Musculoskeltal Medical History: Reports Hx Gout, Reports Hx Musculoskeletal Deformity Psychiatric Medical History: Reports: Hx Depression Traumatic Medical History: Reports: Hx Traumatic Brain Injury - CLOSED Past Surgical History: Reports: Hx Cardiac Surgery - ablation, heart cath in march, Hx Orthopedic Surgery - Immunizations Immunizations up to date: Yes Hx Diphtheria, Pertussis, Tetanus Vaccination: Yes Review of Systems - Review of Systems Constitutional: No symptoms reported EENT: No symptoms reported Cardiovascular: No symptoms reported Respiratory: No symptoms reported Gastrointestinal: See HPI Genitourinary: See HPI Female Genitourinary: See HPI Musculoskeletal: See HPI Skin: No symptoms reported Hematologic/Lymphatic: No symptoms reported Neurological/Psychological: No symptoms reported Physical Exam - Vital signs Vitals: Temp Pulse BP Pulse Ox 97.8 F 97 138/75 H 100 04/26/18 22:57 04/26/18 22:57 04/26/18 22:57 04/26/18 22:57 - Notes Notes: GENERAL: Alert, interacts well. Shifts uncomfortably occasionally but otherwise is in no distress. HEAD: Normocephalic, atraumatic. EYES: Pupils equal, round, and reactive to light. Extraocular movements intact. ENT: Oral mucosa moist, tongue midline. NECK: Full range of motion. Supple. Trachea midline. LUNGS: Clear to auscultation bilaterally, no wheezes, rales, or rhonchi. No respiratory distress. HEART: Regular rate and rhythm. No murmur ABDOMEN: Mild generalized tenderness in the lower abdomen on both sides. No guarding. Non-distended. Bowel sounds present in all 4 quadrants. EXTREMITIES: Moves all 4 extremities spontaneously. No edema, normal radial and dorsalis pedis pulses bilaterally. No cyanosis. BACK: Some mild bilateral paralumbar musculature tenderness, no midline tenderness, no saddle anesthesia, no CVA tenderness, normal distal neurovascular exam. NEUROLOGICAL: Alert and oriented x3. Normal speech. [cranial nerves II through XII grossly intact]. PSYCH: Normal affect, normal mood. SKIN: Warm, dry, normal turgor. No rashes or lesions noted. Course - Re-evaluation Re-evalutation: CBC unremarkable, chemistry unremarkable, urine is contaminated with lots of squamous epithelials, there is some blood, elevated specific gravity. Still have low suspicion of passing kidney stones with bilateral flank pain, bilateral lower pelvic pain, and pain in the flank is in the paralumbar muscles and not over the CVA areas. Patient also presents calm and relaxed, does not appear to be passing a kidney stone. Ultrasound showing ovarian cyst that is almost 5 cm on the right side, good blood flow, no free fluid, no acute findings otherwise. Discussed this with patient. She states she does have [facility] follow-up that she will perform, pain medication helped a lot, patient is now calm and relaxed. Patient requests and will be provided with small amount of pain medication because of the cyst, discussed symptoms of torsion and return precautions in detail. Patient states understanding and agreement. - Vital Signs Vital signs: Temp Pulse Resp BP Pulse Ox 97.4 F 94 16 138/88 H 98 04/27/18 05:58 04/27/18 05:58 04/27/18 05:58 04/27/18 05:58 04/27/18 05:58 - Laboratory Result Diagrams: 04/27/18 02:30 04/27/18 02:30 Laboratory results interpreted by me: 04/27/18 04/27/18 04/27/18 02:10 02:30 02:30 WBC 12.3 H RDW 14.3 H Glucose 123 H Urine Blood LARGE H Ur Leukocyte Esterase TRACE H Discharge - Discharge Clinical Impression: Pelvic pain, Flank pain Ovarian cyst Qualifiers: Laterality: right Qualified Code(s): N83.201 - Unspecified ovarian cyst, right side Condition: Stable Disposition: HOME, SELF-CARE Additional Instructions: There is an approximately 5 cm ovarian cyst on the right side. This is most likely the cause of your pain. Please call [facility]ELOPMENT SPECIALIST and establish follow-up for additional monitoring and management of this. Your examination also indicates lower back pain, apply heat to the area, anti-inflammatories can help. If she takes pain medicine for ovarian cyst pain take stool softener to avoid constipation. Return to emergency department for any concerning or worsening symptoms including severe pain, vomiting, or any other concerning symptoms. Prescriptions: Hydrocodone/Acetaminophen [[place] 5-325 mg Tablet] 1 tab PO ASDIR #10 tablet Forms: Return to Work
[2018-04-27 02:47] LABS: ABSOLUTE BASOPHILS # (AUTO) 0.1 10^3/uL (0.0-0.2); ABSOLUTE EOSINOPHILS # (AUTO) 0.5 10^3/uL (0.0-0.6); ABSOLUTE LYMPHOCYTES (AUTO) 3.9 10^3/uL (0.5-4.7); ABSOLUTE MONOCYTES (AUTO) 0.9 10^3/uL (0.1-1.4); ABSOLUTE NEUT (AUTO) 6.9 10^3/uL (1.7-8.2); BASOPHILS % (AUTO) 0.4 % (0-2); EOSINOPHILS % (AUTO) 3.9 % (0-6); HEMATOCRIT 38.3 % (36.0-47.0); HEMOGLOBIN 12.5 g/dL (12.0-15.5); LYMPHOCYTES % (AUTO) 32.2 % (13-45); MEAN CORPUSCULAR HEMOGLOBIN 27.6 pg (27.0-33.4); MEAN CORPUSCULAR HGB CONC 32.6 g/dL (32.0-36.0); MEAN CORPUSCULAR VOLUME 85 fl (80-97); PLATELET COUNT 279 10^3/uL (150-450); RED BLOOD COUNT 4.52 10^6/uL (3.72-5.28); RED CELL DISTRIBUTION WIDTH 14.3 % (11.5-14.0); SEGMENTED NEUTROPHILS % (AUTO) 56.5 % (42-78); TOTAL CELLS COUNTED % (AUTO) 100 %; WHITE BLOOD COUNT 12.3 10^3/uL (4.0-10.5)
[2018-04-27 03:03] LABS: ALANINE AMINOTRANSFERASE 26 U/L (9-52); ALBUMIN 3.8 g/dL (3.5-5.0); ALKALINE PHOSPHATASE 71 U/L (38-126); ANION GAP 11 (5-19); ASPARTATE AMINO TRANSFERASE 24 U/L (14-36); BILIRUBIN,DIRECT 0.4 mg/dL (0.0-0.4); BILIRUBIN,TOTAL 0.4 mg/dL (0.2-1.3); BLOOD UREA NITROGEN 14 mg/dL (7-20); CALCIUM 8.9 mg/dL (8.4-10.2); CARBON DIOXIDE 28 mmol/L (22-30); CHLORIDE 104 mmol/L (98-107); GLUCOSE 123 mg/dL (75-110); POTASSIUM 4.2 mmol/L (3.6-5.0); SODIUM 143.4 mmol/L (137-145); TOTAL PROTEIN 7.5 g/dL (6.3-8.2)
[2018-04-27 03:22] LABS: APPEARANCE,URINE SLIGHTLY-CLOUDY; BILIRUBIN,URINE NEGATIVE (NEGATIVE); COLOR,URINE YELLOW; GLUCOSE, URINE NEGATIVE (NEGATIVE); KETONES,URINE NEGATIVE (NEGATIVE); LEUKOCYTE ESTERASE,URINE TRACE (NEGATIVE); NITRITE,URINE NEGATIVE (NEGATIVE); PROTEIN,URINE NEGATIVE (NEGATIVE); URINE SPECIFIC GRAVITY 1.032; UROBILINOGEN,URINE NEGATIVE mg/dL (<2.0)
--- NOTE | 2018-04-27 04:18 | RADIOLOGY REPORT (SQ) ---
EXAM DESCRIPTION: US PELVIS COMPLETED DATE/TME: 04/27/2018 02:27 CLINICAL HISTORY: 42 years, Female, sharp pelvic pain, hx of large cysts COMPARISON: None. TECHNIQUE: Transvaginal LIMITATIONS: Body habitus. FINDINGS: 4.8 x 4.6 x 4.2 cm (prior: 5.3-cm, CT, 03/04/18) hypoechoic homogeneous right ovarian cystic lesion, 6.2 x 5.3 x 4.9 cm right ovary, nonvisualized left ovary, 7.7 cm uterus, 0.5 cm endometrial stripe thickness appear otherwise unremarkable in size, shape, echotexture, and vascularity. No significant free fluid. IMPRESSION: Indeterminate probably benign 4.8 cm right ovarian cystic lesion; recommend 6-12 week ultrasound follow-up.
[2018-04-27] MEDS ORDERED: HYDROCODONE/ACETAMINOPHEN 5-325 MG (6 TAB/ER DISP) PO PRN (04:36)
[2018-04-27 06:01] VITALS: BP 138/88
== END 2018-04-27 05:35 | disposition home or self-care (01) ==
LOC: ER 22:32
DX: N83.201 Unspecified ovarian cyst, right side (principal); R10.30 Lower abdominal pain, unspecified; R10.2 Pelvic and perineal pain; E78.00 Pure hypercholesterolemia, unspecified; E11.9 Type 2 diabetes mellitus without complications; Z87.442 Personal history of urinary calculi
CPT/HCPCS: 36415; 76830; 80053; 81001; 81025; 85025; 93976; 99284

== ENCOUNTER 2018-07-30 06:11 | Emergency (ER) | payer BC ==
[2018-07-30] MEDS ORDERED: NORMAL SALINE 1000 ML 1,000 ML IV ONE (06:46)
[2018-07-30] MEDS ORDERED: MORPHINE SULFATE 10 MG/ML INJ IV ONE (07:07)
[2018-07-30] MEDS ORDERED: KETOROLAC TROMETHAMINE INJ/PF 30 MG/1 ML SDV IV ONE (07:07)
[2018-07-30] MEDS ORDERED: ONDANSETRON 4 MG TAB.RAPDIS PO ONE (07:08)
[2018-07-30 07:41] LABS: APPEARANCE,URINE CLEAR; BILIRUBIN,URINE NEGATIVE (NEGATIVE); COLOR,URINE YELLOW; GLUCOSE, URINE NEGATIVE (NEGATIVE); KETONES,URINE NEGATIVE (NEGATIVE); LEUKOCYTE ESTERASE,URINE NEGATIVE (NEGATIVE); NITRITE,URINE NEGATIVE (NEGATIVE); PROTEIN,URINE NEGATIVE (NEGATIVE); URINE SPECIFIC GRAVITY 1.015; UROBILINOGEN,URINE NEGATIVE mg/dL (<2.0)
[2018-07-30 07:53] LABS: ABSOLUTE BASOPHILS # (AUTO) 0.1 10^3/uL (0.0-0.2); ABSOLUTE EOSINOPHILS # (AUTO) 0.4 10^3/uL (0.0-0.6); ABSOLUTE LYMPHOCYTES (AUTO) 3.4 10^3/uL (0.5-4.7); ABSOLUTE MONOCYTES (AUTO) 0.7 10^3/uL (0.1-1.4); ABSOLUTE NEUT (AUTO) 9.3 10^3/uL (1.7-8.2); BASOPHILS % (AUTO) 0.4 % (0-2); EOSINOPHILS % (AUTO) 3.2 % (0-6); HEMATOCRIT 36.5 % (36.0-47.0); HEMOGLOBIN 11.9 g/dL (12.0-15.5); LYMPHOCYTES % (AUTO) 24.7 % (13-45); MEAN CORPUSCULAR HEMOGLOBIN 26.9 pg (27.0-33.4); MEAN CORPUSCULAR HGB CONC 32.5 g/dL (32.0-36.0); MEAN CORPUSCULAR VOLUME 83 fl (80-97); PLATELET COUNT 298 10^3/uL (150-450); RED BLOOD COUNT 4.42 10^6/uL (3.72-5.28); RED CELL DISTRIBUTION WIDTH 14.4 % (11.5-14.0); SEGMENTED NEUTROPHILS % (AUTO) 66.7 % (42-78); TOTAL CELLS COUNTED % (AUTO) 100 %; WHITE BLOOD COUNT 13.9 10^3/uL (4.0-10.5)
[2018-07-30 08:28] LABS: ALANINE AMINOTRANSFERASE 31 U/L (9-52); ALBUMIN 3.7 g/dL (3.5-5.0); ALKALINE PHOSPHATASE 59 U/L (38-126); ANION GAP 5 (5-19); ASPARTATE AMINO TRANSFERASE 28 U/L (14-36); BILIRUBIN,DIRECT 0.5 mg/dL (0.0-0.4); BILIRUBIN,TOTAL 0.8 mg/dL (0.2-1.3); BLOOD UREA NITROGEN 9 mg/dL (7-20); CALCIUM 8.8 mg/dL (8.4-10.2); CARBON DIOXIDE 29 mmol/L (22-30); CHLORIDE 103 mmol/L (98-107); GLUCOSE 128 mg/dL (75-110); POTASSIUM 4.6 mmol/L (3.6-5.0); SODIUM 137.2 mmol/L (137-145); TOTAL PROTEIN 7.5 g/dL (6.3-8.2)
--- NOTE | 2018-07-30 09:06 | RADIOLOGY REPORT (SQ) ---
EXAM DESCRIPTION: U/S NON OB PEL TV W/DOPPLER COMPLETED DATE/TIME: 07/30/2018 8:19 am REASON FOR STUDY: hx of cyst acute pain COMPARISON: 04/27/2018. TECHNIQUE: Dynamic and static grayscale images acquired of the pelvis via transvaginal approach and recorded on PACS. Additional selected color Doppler and spectral images recorded. LIMITATIONS: Marked limitation due to patient's size. FINDINGS: UTERUS: Uterus measures 7.9 x 4.4x 4.3 cm. ENDOMETRIAL STRIPE: The endometrial lining is normal measuring 1 cm. CERVIX: The cervix measures 3 cm. RIGHT OVARY AND DOPPLER: Nonvisualized. A previously noted cystic mass right adnexal region not seen and therefore not evaluated. LEFT OVARY AND DOPPLER: Nonvisualized. IMPRESSION: Limited evaluation due to bowel gas and patient size. Nonvisualization of ovaries. Oth erwise normal pelvic ultrasound. TECHNICAL DOCUMENTATION: JOB ID: [id number] 2010 [employer]- All Rights Reserved Rev-03/11 Reading location - IP/workstation name: [email or web address]
--- NOTE | 2018-07-30 09:07 | ER Document Report ---
ED General - General Chief Complaint: Abdominal Pain Stated Complaint: FLANK PAIN Time Seen by Provider: 07/30/18 06:29 TRAVEL OUTSIDE OF THE [place] IN LAST 30 DAYS: No - HPI Patient complains to provider of: Lower abdominal pain Notes: Patient coming in for bilateral lower abdominal pain ongoing for the last 3-4 hours worse the last 12. Patient states similar to when she had ovarian cyst in the past patient states recently was off her cycle. Patient states currently in a monogamous relationship no STDs in the past no concern for STDs at this time denies any vaginal bleeding vaginal discharge denies any dysuria. Denies any fevers chills nausea vomiting. Patient states pain worse with movement. Patient does not have a history of kidney stones resting comfortably upon my evaluation. - Related Data Allergies/Adverse Reactions: hydrochlorothiazide [Hydrochlorothiazide] Allergy (Severe, Verified 03/23/18 15: 27) Hives Past Medical History - Social History Smoking Status: Never Smoker Frequency of alcohol use: None Family History: Reviewed & Not Pertinent Patient has suicidal ideation: No Patient has homicidal ideation: No - Past Medical History Cardiac Medical History: Reports: Hx Atrial Fibrillation - Ablation done, Hx Hypercholesterolemia, Hx Hypertension Pulmonary Medical History: Reports: Hx Bronchitis, Hx Sleep Apnea Neurological Medical History: Reports: Hx Migraine Endocrine Medical History: Reports: Hx Diabetes Mellitus Type 2 Renal/ Medical History: Reports: Hx Kidney Stones, Hx Ovarian Cysts. Denies: Hx Peritoneal Dialysis GI Medical History: Reports: Hx Gastroesophageal Reflux Disease Musculoskeletal Medical History: Reports Hx Gout, Reports Hx Musculoskeletal Deformity Psychiatric Medical History: Denies: Hx Depression Traumatic Medical History: Reports: Hx Traumatic Brain Injury - CLOSED Past Surgical History: Reports: Hx Cardiac Surgery - ablation, heart cath in march, Hx Orthopedic Surgery - Immunizations Immunizations up to date: Yes Hx Diphtheria, Pertussis, Tetanus Vaccination: Yes Review of Systems - Review of Systems Constitutional: No symptoms reported EENT: No symptoms reported Cardiovascular: No symptoms reported Respiratory: No symptoms reported Gastrointestinal: No symptoms reported, Abdominal pain Genitourinary: No symptoms reported Female Genitourinary: No symptoms reported Musculoskeletal: No symptoms reported Skin: No symptoms reported Hematologic/Lymphatic: No symptoms reported Neurological/Psychological: No symptoms reported -: Yes All other systems reviewed and negative Physical Exam - Vital signs Vitals: Temp Pulse Resp BP Pulse Ox 98.7 F 98 18 152/79 H 96 07/30/18 06:16 07/30/18 06:16 07/30/18 06:16 07/30/18 06:16 07/30/18 06:16 Interpretation: Normal - General General appearance: Appears well, Alert - HEENT Head: Normocephalic, Atraumatic Eyes: Normal Pupils: PERRL - Respiratory Respiratory status: No respiratory distress Chest status: Nontender Breath sounds: Normal Chest palpation: Normal - Cardiovascular Rhythm: Regular Heart sounds: Normal auscultation Murmur: No - Abdominal Inspection: Obese Distension: No distension Bowel sounds: Normal Tenderness: Nontender Organomegaly: No organomegaly - Back Back: Normal, Nontender - Extremities General upper extremity: Normal inspection, Nontender, Normal color, Normal ROM , Normal temperature General lower extremity: Normal inspection, Nontender, Normal color, Normal ROM , Normal temperature, Normal weight bearing. No: Debby's sign - Neurological Neuro grossly intact: Yes Cognition: Normal Orientation: AAOx4 [place] Coma Scale Eye Opening: Spontaneous Sandra Coma Scale Verbal: Oriented [place] Coma Scale Motor: Obeys Commands [place] Coma Scale Total: 15 Speech: Normal Motor strength normal: LUE, RUE, LLE, RLE Sensory: Normal - Psychological Associated symptoms: Normal affect, Normal mood - Skin Skin Temperature: Warm Skin Moisture: Dry Skin Color: Normal Course - Re-evaluation Re-evalutation: 07/30/18 14:32 Ultrasound negative for acute pathology however the CT scan did show gallstones and possible right ovarian cyst. Patient upon last evaluation sleep easily arousable no signs of surgical pathology seen at this time. Patient will be discharged home [facility] patient is to follow-up primary care physician. The patient presents with abdominal pain without signs of peritonitis or other life-threatening or serious etiology. The patient appears stable for discharge and has been instructed to return immediately if the symptoms worsen in any way , or in 8-12hr if not improved for re-evaluation. The patient has been instructed to return if the symptoms worsen or change in any way. - Vital Signs Vital signs: Temp Pulse Resp BP Pulse Ox 98.3 F 87 18 138/80 H 100 07/30/18 12:07 07/30/18 12:07 07/30/18 12:07 07/30/18 12:07 07/30/18 12:07 - Laboratory Result Diagrams: 07/30/18 07:34 07/30/18 07:34 Laboratory results interpreted by me: 07/30/18 07/30/18 07:34 07:34 WBC 13.9 H Hgb 11.9 L MCH 26.9 L RDW 14.4 H Absolute Neutrophils 9.3 H Creatinine 0.51 L Glucose 128 H Direct Bilirubin 0.5 H Discharge - Discharge Clinical Impression: Abdominal pain Qualifiers: Abdominal location: unspecified location Qualified Code(s): R10.9 - Unspecified abdominal pain Ovarian cyst Qualifiers: Laterality: right Qualified Code(s): N83.201 - Unspecified ovarian cyst, right side Condition: Good Disposition: HOME, SELF-CARE Instructions: Abdominal Pain ([facility]), Ovarian Cyst ([facility]) Additional Instructions: Your laboratory evaluation is not show any signs of infection. Ultrasound does not show any acute abnormality. CT scan of your abdomen shows signs of a right ovarian cyst. He denies seeing signs that she would need emergent surgery or antibiotics today I recommend she follow back up with your primary care physician and [employer]. Possibility beginning of a GI virus this may lead to nausea vomiting diarrhea. Recommend drinking plenty of fluids to stay well- hydrated Prescriptions: Ibuprofen [Motrin 600 mg Tablet] 600 mg PO Q8HP PRN #21 tablet PRN Reason: Dicyclomine HCl [Bentyl 20 mg Tablet] 20 mg PO QID #30 tablet Ondansetron [Zofran Odt] 4 mg PO Q6 PRN #30 tab.rapdis PRN Reason: For Nausea/Vomiting Forms: Return to Work Referrals: CHANI CALVILLO MD [Primary Care Provider] - Follow up as needed
--- NOTE | 2018-07-30 11:29 | RADIOLOGY REPORT (SQ) ---
EXAM DESCRIPTION: CT ABD/PELVIS WITH IV ONLY COMPLETED DATE/TIME: 07/30/2018 10:39 am REASON FOR STUDY: abd pain COMPARISON: 03/04/2018 TECHNIQUE: CT scan of the abdomen and pelvis performed using helical scanning technique with dynamic intravenous contrast injection. No oral contrast. Images reviewed with lung, soft tissue, and bone windows. Reconstructed coronal and sagittal MPR images reviewed. Delayed images for evaluation of the urinary system also acquired. All images stored on PACS. All CT scanners at this facility use dose modulation, iterative reconstruction, and/or weight based d osing when appropriate to reduce radiation dose to as low as reasonably achievable (ALARA). [facility]: Dose Right [facility]: CareDose [facility]: Dose Right [facility]: Teradose 4D [facility]: eVendor Check CONTRAST TYPE AND DOSE: contrast/concentration: Isovue 350.00 mg/ml; Total Contrast Delivered: 100.0 ml; Total Saline Delivered: 70.0 ml 100 mL of Omnipaque 350- low osmolar. RENAL FUNCTION: BUN 9 creatinine 0.51 RADIATION DOSE: CT Rad equipment meets quality standard of care and radiation dose reduction techniq ues were employed. CTDIvol: 30.0 mGy. DLP: 3206 mGy-cm.. LIMITATIONS: None. FINDINGS: LOWER CHEST: No significant findings. No nodules or infiltrates. LIVER: Normal size. No masses. No dilated ducts. SPLEEN: Normal size. No focal lesions. PANCREAS: No masses. No significant calcifications. No adjacent inflammation or peripancreatic fluid collections. Pancreatic duct not dilated. GALLBLADDER: Cholelithiasis. No inflammatory changes to suggest cholecystitis. ADRENAL GLANDS: No significant masses or asymmetry. RIGHT KIDNEY AND URETER: No solid masses. No significant calcifications. No hydronephrosis or hyd roureter. LEFT KIDNEY AND URETER: No solid masses. Unchanged hypertrophied column of Jeff, a normal variant. No significant calcifications. No hydronephrosis or hydroureter. AORTA AND VESSELS: No aneurysm. No dissection. Renal arteries, SMA, celiac without stenosis. RETROPERITONEUM: No retroperitoneal adenopathy, hemorrhage or masses. BOWEL AND PERITONEAL CAVITY: No masses or inflammatory changes. No free fluid or peritoneal masses. APPENDIX: Not visualized. PELVIS: No free fluid. Unchanged 4.6 cm hypoattenuating right adnexal lesion. ABDOMINAL WALL: No masses. Small fat containing umbilical hernia. BONES: Degenerative disc disease of the visualized thoracic and lumbar spine. OTHER: No other significant finding. IMPRESSION: 1. Cholelithiasis. No intra or extrahepatic biliary dilatation. 2. Unchanged right adnexal hypodensity, corresponding to the indeterminate right ovarian cyst seen on prior ultrasound of 2017. TECHNICAL DOCUMENTATION: JOB ID: [id number] Quality ID # [id number]: Final reports with documentation of one or more dose reduction techniques (e.g., Au tomated exposure control, adjustment of the mA and/or kV according to patient size, use of iterative reconstruction technique) 2010 [employer]- All Rights Reserved Reading location - IP/workstation name: [email or web address]
[2018-07-30 12:08] VITALS: BP 138/80
== END 2018-07-30 12:05 | disposition home or self-care (01) ==
LOC: ER 06:11
DX: N83.201 Unspecified ovarian cyst, right side (principal); R10.30 Lower abdominal pain, unspecified; I10 Essential (primary) hypertension; E11.9 Type 2 diabetes mellitus without complications
CPT/HCPCS: 99284; 96361; 96374; 96375; 36415; 84703; 85025; 80053; 81001; 76830; 93976; 74177; S0119; J1885; J2270; J7030

== ENCOUNTER 2018-09-11 15:05 | Emergency (ER) | payer BC, MEDICAID ==
--- NOTE | 2018-09-11 15:33 | ER Document Report ---
ED Medical Screen (RME) - General Chief Complaint: Palpitations Stated Complaint: HEARTRATE ISSUE Time Seen by Provider: 09/11/18 15:30 Mode of Arrival: Ambulatory Information source: Patient TRAVEL OUTSIDE OF THE [place] IN LAST 30 DAYS: No - HPI Patient complains to provider of: palpitations Onset: Other - pt. with h/o ablation surgery with palpitations intermittent for the past 2-3 days. Denies CP - Related Data Allergies/Adverse Reactions: hydrochlorothiazide [Hydrochlorothiazide] Allergy (Severe, Verified 03/23/18 15: 27) Hives Past Medical History - Past Medical History Cardiac Medical History: Reports: Hx Atrial Fibrillation - Ablation done, Hx Hypercholesterolemia, Hx Hypertension Pulmonary Medical History: Reports: Hx Bronchitis, Hx Sleep Apnea Neurological Medical History: Reports: Hx Migraine Endocrine Medical History: Reports: Hx Diabetes Mellitus Type 2 Renal/ Medical History: Reports: Hx Kidney Stones, Hx Ovarian Cysts. Denies: Hx Peritoneal Dialysis GI Medical History: Reports: Hx Gastroesophageal Reflux Disease Musculoskeltal Medical History: Reports Hx Gout, Reports Hx Musculoskeletal Deformity Psychiatric Medical History: Denies: Hx Depression Traumatic Medical History: Reports: Hx Traumatic Brain Injury - CLOSED Past Surgical History: Reports: Hx Cardiac Surgery - ablation, heart cath in march, Hx Orthopedic Surgery - Immunizations Immunizations up to date: Yes Hx Diphtheria, Pertussis, Tetanus Vaccination: Yes Physical Exam - Vital signs Vitals: Temp Pulse Resp BP Pulse Ox 97.4 F 78 18 130/77 H 96 09/11/18 15:10 09/11/18 15:10 09/11/18 15:10 09/11/18 15:10 09/11/18 15:10 Course - Vital Signs Vital signs: Temp Pulse Resp BP Pulse Ox 97.4 F 78 18 130/77 H 96 09/11/18 15:10 09/11/18 15:10 09/11/18 15:10 09/11/18 15:10 09/11/18 15:10 Doctor's Discharge - Discharge Referrals: CHANI CALVILLO MD [Primary Care Provider] - Follow up as needed
[2018-09-11 16:01] LABS: ABSOLUTE BASOPHILS # (AUTO) 0.1 10^3/uL (0.0-0.2); ABSOLUTE EOSINOPHILS # (AUTO) 0.5 10^3/uL (0.0-0.6); ABSOLUTE LYMPHOCYTES (AUTO) 3.3 10^3/uL (0.5-4.7); ABSOLUTE MONOCYTES (AUTO) 0.9 10^3/uL (0.1-1.4); ABSOLUTE NEUT (AUTO) 7.8 10^3/uL (1.7-8.2); BASOPHILS % (AUTO) 0.8 % (0-2); EOSINOPHILS % (AUTO) 3.8 % (0-6); HEMATOCRIT 39.4 % (36.0-47.0); HEMOGLOBIN 12.8 g/dL (12.0-15.5); LYMPHOCYTES % (AUTO) 26.4 % (13-45); MEAN CORPUSCULAR HEMOGLOBIN 26.6 pg (27.0-33.4); MEAN CORPUSCULAR HGB CONC 32.4 g/dL (32.0-36.0); MEAN CORPUSCULAR VOLUME 82 fl (80-97); MONOCYTES % (AUTO) 6.9 % (3-13); PLATELET COUNT 355 10^3/uL (150-450); RED CELL DISTRIBUTION WIDTH 15.1 % (11.5-14.0); SEGMENTED NEUTROPHILS % (AUTO) 62.1 % (42-78); TOTAL CELLS COUNTED % (AUTO) 100 %; WHITE BLOOD COUNT 12.6 10^3/uL (4.0-10.5)
--- NOTE | 2018-09-11 16:09 | ER Document Report ---
ED General - General Chief Complaint: Palpitations Stated Complaint: HEARTRATE ISSUE Time Seen by Provider: 09/11/18 15:30 Mode of Arrival: Ambulatory TRAVEL OUTSIDE OF THE [place] IN LAST 30 DAYS: No - HPI Notes: Patient is a 42-year-old female with a history of hypertension and type 2 diabetes who presents to the ED complaining of palpitations intermittently over the last couple days. Patient states that her last episode of palpitations was last night. Patient states that after she has her palpitations she has a brief few minutes of chest tightness which then resolves. Patient states that she has not had any shortness of breath or trouble breathing associated. She did have some mild dizziness associated with it. Patient states that she had similar symptoms back in the 90s and was seen by cardiology at that time with no resolve. Patient states that her palpitations spontaneously resolved. She has not been performing any new diet plans or taking any herbal medications. She does not do any drugs, alcohol, or cigarettes. Patient states that she has been eating and drinking without any difficulties. She is urinating normally and having normal bowel movements. She denies , vaginal discharge/odor /bleeding. Patient has been taking her medicines as directed. Patient currently asymptomatic. Denies any headache, fever, head injury, LOC, sure she is neck pain, changes in vision/speech/mentation/hearing, URI, sore throat, chest pain, syncope, cough, shortness of breath, wheeze, dyspnea, abdominal pain , nausea/vomiting/diarrhea, urinary retention, dysuria, hematuria, loss of control of bowel or bladder, numbness/tingling, saddle anesthesia, muscle paralysis/weakness, or rash. - Related Data Allergies/Adverse Reactions: hydrochlorothiazide [Hydrochlorothiazide] Allergy (Severe, Verified 03/23/18 15: 27) Hives Past Medical History - General Information source: Patient - Social History Smoking Status: Never Smoker Chew tobacco use (# tins/day): No Frequency of alcohol use: None Drug Abuse: None Family History: Reviewed & Not Pertinent Patient has suicidal ideation: No Patient has homicidal ideation: No - Past Medical History Cardiac Medical History: Reports: Hx Atrial Fibrillation - Ablation done, Hx Hypercholesterolemia, Hx Hypertension Pulmonary Medical History: Reports: Hx Bronchitis, Hx Sleep Apnea Neurological Medical History: Reports: Hx Migraine Endocrine Medical History: Reports: Hx Diabetes Mellitus Type 2 Renal/ Medical History: Reports: Hx Kidney Stones, Hx Ovarian Cysts. Denies: Hx Peritoneal Dialysis GI Medical History: Reports: Hx Gastroesophageal Reflux Disease Musculoskeletal Medical History: Reports Hx Gout, Reports Hx Musculoskeletal Deformity Psychiatric Medical History: Denies: Hx Depression Traumatic Medical History: Reports: Hx Traumatic Brain Injury - CLOSED Past Surgical History: Reports: Hx Cardiac Surgery - ablation, heart cath in march, Hx Orthopedic Surgery - cyst - Immunizations Immunizations up to date: Yes Hx Diphtheria, Pertussis, Tetanus Vaccination: Yes Review of Systems - Review of Systems -: Yes All other systems reviewed and negative Physical Exam - Vital signs Vitals: Temp Pulse Resp BP Pulse Ox 97.4 F 78 18 130/77 H 96 09/11/18 15:10 09/11/18 15:10 09/11/18 15:10 09/11/18 15:10 09/11/18 15:10 - Notes Notes: PHYSICAL EXAMINATION: GENERAL: Well-appearing, well-nourished and in no acute distress. A&Ox4. Answers questions appropriately. HEAD: Atraumatic, normocephalic. EYES: Pupils equal round and reactive to light, extraocular movements intact, sclera anicteric, conjunctiva are normal. ENT: Nares patent and without discharge. oropharynx clear without exudates. No tonsilar hypertrophy or erythema. Moist mucous membranes. NECK: Normal range of motion, supple without lymphadenopathy LUNGS: Breath sounds clear to auscultation bilaterally and equal. No wheezes rales or rhonchi. HEART: Regular rate and rhythm without murmurs, rubs, gallops. ABDOMEN: Soft, nontender, nondistended abdomen. No guarding, no rebound. No masses appreciated. Normal bowel sounds present. No CVA tenderness bilaterally. Musculoskeletal: FROM to passive/active. Strength 5+/5. Debby neg. No asymmetry to LE's. Extremities: No cyanosis, clubbing, or edema b/l. Peripheral pulses 2+. Capillary refill less than 3 seconds. NEUROLOGICAL: Normal speech, normal gait. PSYCH: Normal mood, normal affect. SKIN: Warm, Dry, normal turgor, no rashes or lesions noted. Course - Re-evaluation Re-evalutation: 09/11/18 16:08 Pt has labs ordered and is on the monitor. EKG unremarkable. Pt asymptomatic and vitals acceptable. 09/11/18 18:23 Patient is an afebrile, well-hydrated 42-year-old female who presents to the ED with palpitations unspecified. Vitals are acceptable without any significant tachycardia, tachypnea, or hypoxia. PE is otherwise unremarkable. Patient is nontoxic-appearing and is tolerating p.o. without any difficulties. Pt is currently asymptomatic and has been since last evening. CBC, CMP, EKG/cardiac enzyme, TSH, Magn, chest x-ray are all unremarkable for any acute pathology. Patient has been on the monitor throughout her stay and did not have any arrhythmias noted. Patient is PERC negative. Patient does not have any chest pain, dyspnea, or shortness of breath. Patient's presentation and symptomatology creates low suspicion for ACS, PE, pneumothorax, pericarditis, dissection, respiratory compromise, severe dehydration, sepsis, meningitis, cardiac dysrhythmia, or other systemic emergent condition at this time. Patient is aware that his condition can change from initial presentation and he needs to monitor symptoms closely and seek medical attention for any acute changes. Recommend conservative measures for symptoms. Recheck with your PCM in 3-5 days. Consider consult with Cardiology. Return to the ED with any worsening/concerning symptoms otherwise as reviewed in discharge. Patient is in agreement. - Vital Signs Vital signs: Temp Pulse Resp BP Pulse Ox 97.4 F 87 18 126/77 H 96 09/11/18 15:10 09/11/18 18:18 09/11/18 15:10 09/11/18 18:18 09/11/18 15:10 - Laboratory Result Diagrams: 09/11/18 15:47 09/11/18 15:47 Laboratory results interpreted by me: 09/11/18 09/11/18 15:47 15:47 WBC 12.6 H MCH 26.6 L RDW 15.1 H Creatinine 0.50 L Glucose 133 H Discharge - Discharge Clinical Impression: Intermittent palpitations Condition: Stable Disposition: HOME, SELF-CARE Additional Instructions: Maintain adequate fluid and food intake Take home medications as directed Healthy diet Exercise regularly Weight control ?holter monitor in your near future Monitor blood pressure daily and keep a log Monitor symptoms for any acute changes Recheck with your PCM in 3-5 days Consider a follow-up with cardiology Return to the ED with any worsening symptoms and/or development of fever, headache, chest pain, palpitations, syncope, shortness of breath, trouble breathing, abdominal pain, n/v/d, blood in stool/urine, loss of control of bowel /bladder, urinary retention, muscle weakness/paralysis, numbness/tingling, or other worsening symptoms that are concerning to you. Forms: Elevated Blood Pressure Referrals: CHANI CALVILLO MD [Primary Care Provider] - Follow up as needed RENA GOMEZ MD [ACTIVE STAFF] - Follow up as needed
[2018-09-11 16:18] LABS: ALANINE AMINOTRANSFERASE 27 U/L (9-52); ALBUMIN 4.2 g/dL (3.5-5.0); ALKALINE PHOSPHATASE 74 U/L (38-126); ANION GAP 13 (5-19); ASPARTATE AMINO TRANSFERASE 33 U/L (14-36); BILIRUBIN,DIRECT 0.2 mg/dL (0.0-0.4); BILIRUBIN,TOTAL 0.4 mg/dL (0.2-1.3); BLOOD UREA NITROGEN 11 mg/dL (7-20); CARBON DIOXIDE 26 mmol/L (22-30); CHLORIDE 103 mmol/L (98-107); CREATINE KINASE 67 U/L (30-135); GLUCOSE 133 mg/dL (75-110); POTASSIUM 4.4 mmol/L (3.6-5.0); SODIUM 142.2 mmol/L (137-145); TOTAL PROTEIN 8.1 g/dL (6.3-8.2)
--- NOTE | 2018-09-11 16:28 | RADIOLOGY REPORT (SQ) ---
EXAM DESCRIPTION: 10/10/2017 CHEST 2 VIEWS COMPLETED DATE/TIME: 09/11/2018 4:20 pm REASON FOR STUDY: palpitations COMPARISON: None. EXAM PARAMETERS: NUMBER OF VIEWS: two views TECHNIQUE: Digital Frontal and Lateral radiographic views of the chest acquired. RADIATION DOSE: NA LIMITATIONS: none FINDINGS: LUNGS AND PLEURA: No opacities, masses or pneumothorax. No pleural effusion. MEDIASTINUM AND HILAR STRUCTURES: No masses or contour abnormalities. HEART AND VASCULAR STRUCTURES: Heart normal size. No evidence for failure. BONES: No acute findings. HARDWARE: None in the chest. OTHER: No other significant finding. IMPRESSION: NO ACUTE RADIOGRAPHIC FINDING IN THE CHEST. TECHNICAL DOCUMENTATION: JOB ID: [id number] [employer]- All Rights Reserved Reading location - IP/workstation name: [email or web address]
[2018-09-11 16:30] LABS: CREATINE KINASE MB 1.37 ng/mL (<4.55)
[2018-09-11 16:31] LABS: TROPONIN I < 0.012 ng/mL
[2018-09-11] MEDS ORDERED: PRAMIPEXOLE DI-HCL 0.5 MG TABLET PO ONE (17:20)
--- NOTE | 2018-09-11 17:29 | EKG REPORT ---
SEVERITY:- OTHERWISE NORMAL ECG - SINUS RHYTHM LEFT AXIS DEVIATION : Confirmed by: Rosalia De La Torre 11-Sep-2018 17:29:00
[2018-09-11] MEDS ORDERED: PRAMIPEXOLE DI-HCL 0.5 MG TABLET ONE (17:45)
[2018-09-11 18:20] VITALS: BP 126/77
== END 2018-09-11 18:58 | disposition home or self-care (01) ==
LOC: ER 15:05
DX: R00.2 Palpitations (principal); R07.89 Other chest pain; R42 Dizziness and giddiness; I10 Essential (primary) hypertension; E11.9 Type 2 diabetes mellitus without complications; Z88.8 Allergy status to other drugs, medicaments and biological substances
CPT/HCPCS: 93005; 99285; 36415; 82553; 82550; 83735; 84443; 85025; 80053; 84484; 71046; 93010; J3490

== ENCOUNTER 2018-10-05 08:40 | Emergency (ER) | payer OTHER ==
[2018-10-05] MEDS ORDERED: PREDNISONE 20 MG TABLET PO ONE (10:12)
[2018-10-05] MEDS ORDERED: IPRATROPIUM/ALBUTEROL 0.5-2.5 MG/3 ML AMPUL NEB ONE (10:12)
[2018-10-05] MEDS ORDERED: ACETAMINOPHEN 325 MG TABLET PO ONE (10:13)
--- NOTE | 2018-10-05 10:15 | ER Document Report ---
ED General - General Chief Complaint: Abdominal Pain Stated Complaint: FLU SYMPTOMS Time Seen by Provider: 10/05/18 09:43 Mode of Arrival: Ambulatory Information source: Patient Notes: Patient presents complaining of nonproductive cough for the past 2 weeks. Patient states she has had cough symptoms with sneezing congestion and sore throat off and on for 2 weeks. Patient states that she will seem to get better and then symptoms started again. Patient reports subjective fever off and on as well. In addition patient complains of umbilical pain that radiates to the left lower quadrant for the past 3-4 days that has been off and on as well. Patient states that she has a history of ovarian cyst on the right side that radiates pain over to the left side and suspects that she is having this today as well. Patient also reports diarrhea off and on for the past 2 weeks. Patient denies any blood in the stool. Patient states she has had about 4 or 5 bowel movements today. TRAVEL OUTSIDE OF THE [place] IN LAST 30 DAYS: No - HPI Onset: Other - 2 weeks Onset/Duration: Waxing and waning Quality of pain: Achy Pain Level: 3 Associated symptoms: Nonproductive cough, Diarrhea, Fever - Subjective, Sore throat. denies: Chest pain, Nausea, Vomiting, Shortness of breath Exacerbated by: Denies Relieved by: Denies Similar symptoms previously: Yes Recently seen / treated by doctor: No - Related Data Allergies/Adverse Reactions: hydrochlorothiazide [Hydrochlorothiazide] Allergy (Severe, Verified 03/23/18 15: 27) Hives Past Medical History - General Information source: Patient - Social History Smoking Status: Never Smoker Frequency of alcohol use: None Drug Abuse: None Occupation: support services rep Lives with: Family Family History: Reviewed & Not Pertinent - Past Medical History Cardiac Medical History: Reports: Hx Atrial Fibrillation - Ablation done, Hx Hypercholesterolemia, Hx Hypertension Pulmonary Medical History: Reports: Hx Bronchitis, Hx Sleep Apnea Neurological Medical History: Reports: Hx Migraine Endocrine Medical History: Reports: Hx Diabetes Mellitus Type 2 Renal/ Medical History: Reports: Hx Kidney Stones, Hx Ovarian Cysts. Denies: Hx Peritoneal Dialysis GI Medical History: Reports: Hx Gastroesophageal Reflux Disease Musculoskeletal Medical History: Reports Hx Gout, Reports Hx Musculoskeletal Deformity Psychiatric Medical History: Denies: Hx Depression Past Surgical History: Reports: Hx Cardiac Surgery - ablation, heart cath in march, Hx Orthopedic Surgery - cyst - Immunizations Immunizations up to date: Yes Hx Diphtheria, Pertussis, Tetanus Vaccination: Yes Review of Systems - Review of Systems Constitutional: Fever, Recent illness - URI symptoms EENT: Throat pain Cardiovascular: No symptoms reported. denies: Chest pain Respiratory: No symptoms reported. denies: Cough, Short of breath Gastrointestinal: Abdominal pain, Diarrhea. denies: Vomiting, Poor appetite Genitourinary: No symptoms reported. denies: Dysuria, Flank pain Female Genitourinary: No symptoms reported. denies: , Vaginal discharge , Vaginal bleeding Musculoskeletal: No symptoms reported Skin: No symptoms reported Hematologic/Lymphatic: No symptoms reported Neurological/Psychological: No symptoms reported Physical Exam - Vital signs Vitals: Temp Pulse Resp BP Pulse Ox 98.5 F 94 18 151/72 H 95 10/05/18 08:47 10/05/18 08:47 10/05/18 08:47 10/05/18 08:47 10/05/18 08:47 - General General appearance: Appears well, Alert In distress: None - HEENT Head: Normocephalic, Atraumatic Eyes: Normal Conjunctiva: Normal Ears: Normal External canal: Normal Sinus: Normal Mouth/Lips: Normal Pharynx: Erythema. No: Exudate, Peritonsillar abscess, Tonsillar hypertrophy Neck: Normal, Supple. No: Lymphadenopathy, Meningismus - Respiratory Respiratory status: No respiratory distress Chest status: Nontender Breath sounds: Nonproductive cough, Wheezing Chest palpation: Normal - Cardiovascular Rhythm: Regular Heart sounds: S1 appreciated, S2 appreciated Murmur: No - Abdominal Inspection: Morbidly Obese Distension: No distension Bowel sounds: Normal Tenderness: Tender - umbilical. No: McBurney's point, Gross's sign Organomegaly: No organomegaly - Back Back: Normal, Nontender. No: CVA tenderness - Extremities General upper extremity: Normal inspection, Normal strength General lower extremity: Normal inspection, Normal strength - Neurological Neuro grossly intact: Yes Cognition: Normal [place] Coma Scale Eye Opening: Spontaneous Sandra Coma Scale Verbal: Oriented Sandra Coma Scale Motor: Obeys Commands [place] Coma Scale Total: 15 - Psychological Associated symptoms: Normal affect, Normal mood - Skin Skin Temperature: Warm Skin Moisture: Dry Skin Color: Normal Course - Re-evaluation Re-evalutation: 10/05/18 14:07 Patient's breath sounds unlabored, with good air movement bilaterally and decreased wheezing. Discussed results of patient's testing with her. Patient does still complain of left lateral side tenderness off and on. Offered additional imaging includes CT scan, patient declined stating that she will follow-up if her pain worsens, would like to be discharged at this time. Patient states that she was here for her upper respiratory symptoms. Patient states that she can follow-up with her shake out worker for recheck of her ovarian cyst. Patient states that she has had pain with her ovarian cyst that radiated to the left side of her abdomen and feels that her pain is attributed to this today. - Vital Signs Vital signs: Temp Pulse Resp BP Pulse Ox 98.1 F 92 14 148/88 H 94 10/05/18 14:49 10/05/18 14:49 10/05/18 14:49 10/05/18 14:49 10/05/18 14:49 - Laboratory Result Diagrams: 10/05/18 10:40 10/05/18 10:40 Laboratory results interpreted by me: 10/05/18 10/05/18 10:40 10:40 WBC 11.0 H Hgb 11.9 L MCH 26.6 L RDW 14.7 H Glucose 170 H Labs- Entire Visit 10/05/18 10/05/18 10/05/18 10:20 10:40 10:40 WBC 11.0 H RBC 4.47 Hgb 11.9 L Hct 36.6 MCV 82 MCH 26.6 L MCHC 32.5 RDW 14.7 H Plt Count 296 Seg Neutrophils % 58.1 Lymphocytes % 30.6 Monocytes % 6.3 Eosinophils % 4.4 Basophils % 0.6 Absolute Neutrophils 6.4 Absolute Lymphocytes 3.4 Absolute Monocytes 0.7 Absolute Eosinophils 0.5 Absolute Basophils 0.1 Sodium 141.4 Potassium 4.1 Chloride 106 Carbon Dioxide 28 Anion Gap 7 BUN 15 Creatinine 0.54 Est GFR ( Amer) > 60 Est GFR (Non-Af Amer) > 60 Glucose 170 H Calcium 8.9 Total Bilirubin 0.5 Direct Bilirubin 0.3 Neonat Total Bilirubin Not Reportable Neonat Direct Bilirubin Not Reportable Neonat Indirect Bili Not Reportable AST 27 ALT 24 Alkaline Phosphatase 62 Total Protein 7.5 Albumin 3.8 Lipase 75.6 Serum HCG, Qual Urine Color Urine Appearance Urine pH Ur Specific Prichard Urine Protein Urine Glucose (UA) Urine Ketones Urine Blood Urine Nitrite Urine Bilirubin Urine Urobilinogen Ur Leukocyte Esterase Urine WBC (Auto) Urine RBC (Auto) Squamous Epi Cells Auto Urine Mucus (Auto) Urine Ascorbic Acid Group A Strep Rapid NEGATIVE 10/05/18 10/05/18 10:40 10:40 WBC RBC Hgb Hct MCV MCH MCHC RDW Plt Count Seg Neutrophils % Lymphocytes % Monocytes % Eosinophils % Basophils % Absolute Neutrophils Absolute Lymphocytes Absolute Monocytes Absolute Eosinophils Absolute Basophils Sodium Potassium Chloride Carbon Dioxide Anion Gap BUN Creatinine Est GFR ( Amer) Est GFR (Non-Af Amer) Glucose Calcium Total Bilirubin Direct Bilirubin Neonat Total Bilirubin Neonat Direct Bilirubin Neonat Indirect Bili AST ALT Alkaline Phosphatase Total Protein Albumin Lipase Serum HCG, Qual NEGATIVE Urine Color YELLOW Urine Appearance SLIGHTLY-CLOUDY Urine pH 5.0 Ur Specific Prichard 1.030 Urine Protein NEGATIVE Urine Glucose (UA) NEGATIVE Urine Ketones NEGATIVE Urine Blood NEGATIVE Urine Nitrite NEGATIVE Urine Bilirubin NEGATIVE Urine Urobilinogen NEGATIVE Ur Leukocyte Esterase NEGATIVE Urine WBC (Auto) 1 Urine RBC (Auto) 1 Squamous Epi Cells Auto 3 Urine Mucus (Auto) RARE Urine Ascorbic Acid NEGATIVE Group A Strep Rapid - Diagnostic Test Radiology reviewed: Reports reviewed Discharge - Discharge Clinical Impression: Wheezing, Left sided abdominal pain Upper respiratory infection Qualifiers: URI type: unspecified URI Qualified Code(s): J06.9 - Acute upper respiratory infection, unspecified Ovarian cyst Qualifiers: Laterality: right Qualified Code(s): N83.201 - Unspecified ovarian cyst, right side Condition: Stable Disposition: HOME, SELF-CARE Instructions: Abdominal Pain ([facility]), Bronchitis With Bronchospasm (Wheezing) ( [facility]), Diarrhea, Nonspecific ([facility]), Ovarian Cyst ([facility]) Additional Instructions: Return immediately for any new or worsening symptoms Followup with your primary care provider, call tomorrow to make a followup appointment Follow-up with a shake out worker for further evaluation of ovarian cyst Prescriptions: Benzonatate [Tessalon Perle 100 mg Capsule] 100 mg PO Q8HP PRN #20 cap PRN Reason: Albuterol Sulfate [Ventolin 0.083% Neb 2.5 mg/3 ml Ampul] 1 vial NEB Q4 PRN #25 vial PRN Reason: Prednisone [Deltasone 10 mg Tablet] 10 mg PO ASDIR PRN #21 tablet PRN Reason: Forms: Follow-Up Laboratory Testing, Return to Work Referrals: CHANI CALVILLO MD [Primary Care Provider] - Follow up as needed [facility] [Provider Group] - Follow up as needed
--- NOTE | 2018-10-05 11:01 | RADIOLOGY REPORT (SQ) ---
EXAM DESCRIPTION: CHEST 2 VIEWS COMPLETED DATE/TIME: 10/05/2018 10:34 am REASON FOR STUDY: cough COMPARISON: 09/11/2018 EXAM PARAMETERS: NUMBER OF VIEWS: two views TECHNIQUE: Digital Frontal and Lateral radiographic views of the chest acquired. RADIATION DOSE: NA LIMITATIONS: none FINDINGS: LUNGS AND PLEURA: No opacities, masses or pneumothorax. No pleural effusion. MEDIASTINUM AND HILAR STRUCTURES: No masses or contour abnormalities. HEART AND VASCULAR STRUCTURES: Heart normal size. No evidence for failure. BONES: No acute findings. HARDWARE: None in the chest. OTHER: No other significant finding. IMPRESSION: NO ACUTE RADIOGRAPHIC FINDING IN THE CHEST. TECHNICAL DOCUMENTATION: JOB ID: [id number] [employer]- All Rights Reserved Reading location - IP/workstation name: [email or web address]
[2018-10-05 11:02] LABS: ABSOLUTE BASOPHILS # (AUTO) 0.1 10^3/uL (0.0-0.2); ABSOLUTE EOSINOPHILS # (AUTO) 0.5 10^3/uL (0.0-0.6); ABSOLUTE LYMPHOCYTES (AUTO) 3.4 10^3/uL (0.5-4.7); ABSOLUTE MONOCYTES (AUTO) 0.7 10^3/uL (0.1-1.4); ABSOLUTE NEUT (AUTO) 6.4 10^3/uL (1.7-8.2); BASOPHILS % (AUTO) 0.6 % (0-2); EOSINOPHILS % (AUTO) 4.4 % (0-6); HEMATOCRIT 36.6 % (36.0-47.0); HEMOGLOBIN 11.9 g/dL (12.0-15.5); LYMPHOCYTES % (AUTO) 30.6 % (13-45); MEAN CORPUSCULAR HEMOGLOBIN 26.6 pg (27.0-33.4); MEAN CORPUSCULAR HGB CONC 32.5 g/dL (32.0-36.0); MEAN CORPUSCULAR VOLUME 82 fl (80-97); MONOCYTES % (AUTO) 6.3 % (3-13); PLATELET COUNT 296 10^3/uL (150-450); RED BLOOD COUNT 4.47 10^6/uL (3.72-5.28); RED CELL DISTRIBUTION WIDTH 14.7 % (11.5-14.0); SEGMENTED NEUTROPHILS % (AUTO) 58.1 % (42-78); TOTAL CELLS COUNTED % (AUTO) 100 %
[2018-10-05 11:09] LABS: APPEARANCE,URINE SLIGHTLY-CLOUDY; BILIRUBIN,URINE NEGATIVE (NEGATIVE); COLOR,URINE YELLOW; GLUCOSE, URINE NEGATIVE (NEGATIVE); KETONES,URINE NEGATIVE (NEGATIVE); LEUKOCYTE ESTERASE,URINE NEGATIVE (NEGATIVE); NITRITE,URINE NEGATIVE (NEGATIVE); PROTEIN,URINE NEGATIVE (NEGATIVE); UROBILINOGEN,URINE NEGATIVE mg/dL (<2.0)
[2018-10-05 11:18] LABS: ALANINE AMINOTRANSFERASE 24 U/L (9-52); ALBUMIN 3.8 g/dL (3.5-5.0); ALKALINE PHOSPHATASE 62 U/L (38-126); ANION GAP 7 (5-19); ASPARTATE AMINO TRANSFERASE 27 U/L (14-36); BILIRUBIN,DIRECT 0.3 mg/dL (0.0-0.4); BILIRUBIN,TOTAL 0.5 mg/dL (0.2-1.3); BLOOD UREA NITROGEN 15 mg/dL (7-20); CALCIUM 8.9 mg/dL (8.4-10.2); CARBON DIOXIDE 28 mmol/L (22-30); CHLORIDE 106 mmol/L (98-107); GLUCOSE 170 mg/dL (75-110); LIPASE 75.6 U/L (23-300); POTASSIUM 4.1 mmol/L (3.6-5.0); SODIUM 141.4 mmol/L (137-145); TOTAL PROTEIN 7.5 g/dL (6.3-8.2)
--- NOTE | 2018-10-05 12:30 | RADIOLOGY REPORT (SQ) ---
EXAM DESCRIPTION: U/S NON OB PEL TV W/DOPPLER COMPLETED DATE/TIME: 10/05/2018 12:14 pm REASON FOR STUDY: pelvic pain, concern about ov cyst COMPARISON: Abdominal CT scan dated 08/01/2018 TECHNIQUE: Dynamic and static grayscale images acquired of the pelvis via transvaginal approach and recorded on PACS. Additional selected color Doppler and spectral images recorded. LIMITATIONS: None. FINDINGS: UTERUS: Contour normal. No mass. ENDOMETRIAL STRIPE: No focal or generalized thickening. No masses. CERVIX: No nabothian cysts. RIGHT OVARY AND DOPPLER: Normal size. A right ovarian cyst is identified measuring 4.5 x 4.5 x 3.5 c m in diameters which correlates with the CT finding. Normal arterial vascular flow without evidence f or torsion. LEFT OVARY AND DOPPLER: Left ovary was not visualized. FREE FLUID: None noted. OTHER: No other significant finding. MEASUREMENTS: UTERUS: 8.4 x 4.8 x 4.4 cm ENDOMETRIAL STRIPE: 4.1 mm RIGHT OVARY: 6.1 x 5.6 x 5.6 cm LEFT OVARY: Not visualized IMPRESSION: Right ovarian cyst is identified which appears essentially unchanged as compared to the previous CT scan. No other significant pelvic abnormalities were identified. Other findings as note d above. Followup recommendations are as noted below. COMMENT: Followup of asymptomatic benign ovarian cysts detected by ultrasound in PREMENOPAUSAL michelle ents Simple cyst: *? 5 cm: no followup *> 5 and ? 7 cm: yearly followup ultrasound *> 7 cm: further imaging (MRI) or surgical followup Hemorrhagic cyst *? 5 cm: no followup *> 5 cm: 6-12 week followup ultrasound to ensure resolution Endometrioma *Initial followup ultrasound 6-12 weeks, then yearly if not surgically removed Dermoid *Yearly followup ultrasound if not surgically removed Note: If cyst is clinically symptomatic or otherwise concerning, other followup may be warranted. Based on recommendations of the Society for Radiologists in Ultrasound Consensus Conference Statement 2010 on management of asymptomatic ovarian and other adnexal cysts imaged at ultrasound. TECHNICAL DOCUMENTATION: JOB ID: [id number] [employer]- All Rights Reserved Rev-03/11 Reading location - IP/workstation name: [email or web address]
[2018-10-05] MEDS ORDERED: LOPERAMIDE HCL 2 MG CAPSULE PO ONE (14:14)
[2018-10-05 14:50] VITALS: BP 148/88
== END 2018-10-05 14:49 | disposition home or self-care (01) ==
LOC: ER 08:40
DX: J06.9 Acute upper respiratory infection, unspecified (principal); N83.201 Unspecified ovarian cyst, right side; R06.2 Wheezing; R10.32 Left lower quadrant pain; R10.33 Periumbilical pain; R10.9 Unspecified abdominal pain; R05 Cough; R06.7 Sneezing; R09.81 Nasal congestion; J02.9 Acute pharyngitis, unspecified; R19.7 Diarrhea, unspecified; R50.9 Fever, unspecified; I10 Essential (primary) hypertension; E11.9 Type 2 diabetes mellitus without complications
CPT/HCPCS: 94640; 99284; 36415; 87040; 87070; 87880; 83690; 84703; 85025; 87077; 80053; 81001; 71046; 76830; 93976; J7512; J7620

== ENCOUNTER 2018-10-15 16:36 | Emergency (ER) | payer SELFPAY ==
--- NOTE | 2018-10-15 16:52 | ER Document Report ---
ED Medical Screen (RME) - General Chief Complaint: Laceration Stated Complaint: FINGER LACERATION Time Seen by Provider: 10/15/18 16:51 Mode of Arrival: Ambulatory Information source: Patient TRAVEL OUTSIDE OF THE [place] IN LAST 30 DAYS: No - HPI Patient complains to provider of: laceration R thumb Onset: Just prior to arrival - pt cut R thumb at home in kitchen. Tet- UTD - Related Data Allergies/Adverse Reactions: hydrochlorothiazide [Hydrochlorothiazide] Allergy (Severe, Verified 10/15/18 16:37) Hives Past Medical History - Past Medical History Cardiac Medical History: Reports: Hx Atrial Fibrillation - Ablation done, Hx Hypercholesterolemia, Hx Hypertension Pulmonary Medical History: Reports: Hx Bronchitis, Hx Sleep Apnea Neurological Medical History: Reports: Hx Migraine Endocrine Medical History: Reports: Hx Diabetes Mellitus Type 2 Renal/ Medical History: Reports: Hx Kidney Stones, Hx Ovarian Cysts. Denies: Hx Peritoneal Dialysis GI Medical History: Reports: Hx Gastroesophageal Reflux Disease Musculoskeltal Medical History: Reports Hx Gout, Reports Hx Musculoskeletal Deformity Psychiatric Medical History: Denies: Hx Depression Traumatic Medical History: Reports: Hx Traumatic Brain Injury - CLOSED Past Surgical History: Reports: Hx Cardiac Surgery - ablation, heart cath in march, Hx Orthopedic Surgery - cyst - Immunizations Immunizations up to date: Yes Hx Diphtheria, Pertussis, Tetanus Vaccination: Yes Physical Exam - Vital signs Vitals: Temp Pulse Resp BP Pulse Ox 98 F 99 18 153/76 H 98 10/15/18 16:41 10/15/18 16:41 10/15/18 16:41 10/15/18 16:41 10/15/18 16:41 Course - Vital Signs Vital signs: Temp Pulse Resp BP Pulse Ox 98 F 99 18 153/76 H 98 10/15/18 16:41 10/15/18 16:41 10/15/18 16:41 10/15/18 16:41 10/15/18 16:41 Doctor's Discharge - Discharge Referrals: CHANI CALVILLO MD [Primary Care Provider] - Follow up as needed
[2018-10-15] MEDS ORDERED: LIDOCAINE 1% INJ-PF (10 MG/ML) 30 ML SDV INJ ONE (18:12)
--- NOTE | 2018-10-15 18:28 | ER Document Report ---
HPI - HPI Patient complains to provider of: Thumb laceration Time Seen by Provider: 10/15/18 16:51 Onset: Just prior to arrival Onset/Duration: Sudden Quality of pain: Achy Pain Level: 3 Context: Patient was attempting to open up a bag of cookie cutters and slipped with a knife cutting her left thumb. Patient is right-hand dominant. Patient's tetanus immunizations currently up-to-date. Patient denies any difficulty in moving her thumb. Associated Symptoms: Other - Thumb laceration Exacerbated by: Movement Relieved by: Denies Similar symptoms previously: No Recently seen / treated by doctor: No - ROS ROS below otherwise negative: Yes Systems Reviewed and Negative: Yes All other systems reviewed and negative - NEURO Neurology: DENIES: Weakness - REPRODUCTIVE Reproductive: DENIES: : - MUSCULOSKELETAL Musculoskeletal: REPORTS: Extremity pain - DERM Skin Color: Normal Skin Problems: Laceration Past Medical History - General Information source: Patient - Social History Smoking Status: Never Smoker Chew tobacco use (# tins/day): No Frequency of alcohol use: None Drug Abuse: None Occupation: [employer] Lives with: Family Family History: Reviewed & Not Pertinent Patient has suicidal ideation: No Patient has homicidal ideation: No - Past Medical History Cardiac Medical History: Reports: Hx Atrial Fibrillation - Ablation done, Hx Hy percholesterolemia, Hx Hypertension Pulmonary Medical History: Reports: Hx Bronchitis, Hx Sleep Apnea Neurological Medical History: Reports: Hx Migraine Renal/ Medical History: Reports: Hx Kidney Stones, Hx Ovarian Cysts. Denies: Hx Peritoneal Dialysis GI Medical History: Reports: Hx Gastroesophageal Reflux Disease Musculoskeletal Medical History: Reports Hx Gout, Reports Hx Musculoskeletal Deformity Psychiatric Medical History: Denies: Hx Depression Traumatic Medical History: Reports: Hx Traumatic Brain Injury - CLOSED Past Surgical History: Reports: Hx Cardiac Surgery - ablation, heart cath in march, Hx Orthopedic Surgery - cyst - Immunizations Immunizations up to date: Yes Hx Diphtheria, Pertussis, Tetanus Vaccination: Yes Vertical Provider Document - CONSTITUTIONAL Agree With Documented VS: Yes Exam Limitations: No Limitations General Appearance: WD/WN, No Apparent Distress - INFECTION CONTROL TRAVEL OUTSIDE OF THE [place] IN LAST 30 DAYS: No - HEENT HEENT: Atraumatic, Normocephalic - NECK Neck: Normal Inspection - RESPIRATORY Respiratory: No Respiratory Distress - CARDIOVASCULAR Pulses: Normal: Radial - MUSCULOSKELETAL/EXTREMETIES Musculoskeletal/Extremeties: YASSINE MAGANA - NEURO Level of Consciousness: Awake, Alert, Appropriate Motor/Sensory: No Motor Deficit, No Sensory Deficit Notes: No tendon deficit to left second finger - DERM Integumentary: Warm, Dry, Laceration - 1.5 cm laceration dorsal aspect of left thumb Course - Vital Signs Vital signs: Temp Pulse Resp BP Pulse Ox 98 F 99 18 153/76 H 98 10/15/18 16:41 10/15/18 16:41 10/15/18 16:41 10/15/18 16:41 10/15/18 16:41 Procedures - Immobilization Left Thumb Pre-Proc Neuro Vasc Exam: Normal Immobilizer type: Finger splint (Static) Performed by: PCT Post-Proc Neuro Vasc Exam: Normal Alignment checked and good: Yes - Laceration/Wound Repair Left Thumb Wound length (cm): 1.5 Wound's Depth, Shape: Linear Anesthetic type: 1% Lidocaine Wound explored: Clean Wound Repaired With: Sutures Suture Size/Type: 6:0, Nylon Number of Sutures: 3 Post-procedure wound care: Sterile dressing applied, Splint applied Post-procedure NV exam normal: Yes Complications: No Hands back picture: 1 - lac Discharge - Discharge Clinical Impression: Thumb laceration Qualifiers: Encounter type: initial encounter Damage to nail status: without damage Foreign body presence: without foreign body Laterality: left Qualified Code(s): S61.012A - Laceration without foreign body of left thumb without damage to nail, initial encounter Condition: Stable Disposition: HOME, SELF-CARE Instructions: Laceration Care ([facility]) Additional Instructions: Return immediately for any new or worsening symptoms Followup with your primary care provider, call tomorrow to make a followup appointment Suture removal in 10 days Do not submerge hand under water, if sutures get wet pat dry and replace dressing. Forms: Restricted Release Referrals: CHANI CALVILLO MD [Primary Care Provider] - Follow up as needed RONI JONES DO [ACTIVE STAFF] - Follow up as needed
[2018-10-15 18:53] VITALS: BP 141/72
== END 2018-10-15 19:08 | disposition home or self-care (01) ==
LOC: ER 16:36
DX: S61.012A Laceration without foreign body of left thumb without damage to nail, initial encounter (principal); W26.0XXA Contact with knife, initial encounter; Y93.89 Activity, other specified; I10 Essential (primary) hypertension
CPT/HCPCS: 99282; 12001; J3490

== ENCOUNTER 2018-11-01 19:17 | Emergency (ER) | payer BC ==
[2018-11-01] MEDS ORDERED: OXYCODONE-ACETAMINOPHEN 5-325 MG TABLET PO ONE (20:00)
[2018-11-01] MEDS ORDERED: PROMETHAZINE HCL 25 MG TABLET PO ONE (20:00)
--- NOTE | 2018-11-01 20:06 | ER Document Report ---
ED GI/ - General Chief Complaint: Lower Abdominal Pain Stated Complaint: POSSIBLE CYST Time Seen by Provider: 11/01/18 19:52 Notes: Patient is a 43-year-old female that comes to the emergency department for chief complaint of lower abdominal pain with sharp pain on the left radiating to the lower back on the left side. She states symptoms have been worsening for 2 days with increasing nausea. She denies vomiting, dysuria, vaginal discharge, fever or chills. She states she has had some light spotting vaginally yesterday. She is sexually active with her boyfriend. She states she has a history of an enlarging cyst on the left side. She states it feels like a cyst. She also has a history of kidney stones, states this does not feel like a stone. Remaining medical history of hypertension, obesity, hyperlipidemia. TRAVEL OUTSIDE OF THE [place] IN LAST 30 DAYS: No - Related Data Allergies/Adverse Reactions: hydrochlorothiazide [Hydrochlorothiazide] Allergy (Severe, Verified 11/01/18 19:56) Hives Past Medical History - General Information source: Patient - Social History Smoking Status: Never Smoker Frequency of alcohol use: None Drug Abuse: None Lives with: Family Family History: Reviewed & Not Pertinent - Past Medical History Cardiac Medical History: Reports: Hx Atrial Fibrillation - Ablation done, Hx Hypercholesterolemia, Hx Hypertension Pulmonary Medical History: Reports: Hx Bronchitis, Hx Sleep Apnea Neurological Medical History: Reports: Hx Migraine Endocrine Medical History: Reports: Hx Diabetes Mellitus Type 2 Renal/ Medical History: Reports: Hx Kidney Stones, Hx Ovarian Cysts. Denies: Hx Peritoneal Dialysis GI Medical History: Reports: Hx Gastroesophageal Reflux Disease Musculoskeletal Medical History: Reports Hx Gout, Reports Hx Musculoskeletal Deformity Psychiatric Medical History: Denies: Hx Depression Traumatic Medical History: Reports: Hx Traumatic Brain Injury - CLOSED Past Surgical History: Reports: Hx Cardiac Catheterization - negative, Hx Cardiac Surgery - ablation, heart cath in march, Hx Orthopedic Surgery - cyst - Immunizations Immunizations up to date: Yes Hx Diphtheria, Pertussis, Tetanus Vaccination: Yes Review of Systems - Review of Systems Constitutional: No symptoms reported EENT: No symptoms reported Cardiovascular: No symptoms reported Respiratory: No symptoms reported Gastrointestinal: See HPI Genitourinary: See HPI Female Genitourinary: See HPI Musculoskeletal: No symptoms reported Skin: No symptoms reported Hematologic/Lymphatic: No symptoms reported Neurological/Psychological: No symptoms reported Physical Exam - Vital signs Vitals: Temp Pulse Resp BP Pulse Ox 98.3 F 96 20 146/78 H 97 11/01/18 19:54 11/01/18 19:54 11/01/18 19:54 11/01/18 19:54 11/01/18 19:54 - Notes Notes: GENERAL: Alert, interacts well. No acute distress. HEAD: Normocephalic, atraumatic. EYES: Pupils equal, round, and reactive to light. Extraocular movements intact. ENT: Oral mucosa moist, tongue midline. Oropharynx unremarkable. Airway patent. Nares patent, no nasal septal hematoma, TM's intact. NECK: Full range of motion. Supple. Trachea midline. LUNGS: Clear to auscultation bilaterally, no wheezes, rales, or rhonchi. No respiratory distress. HEART: Regular rate and rhythm. No murmur ABDOMEN: tender with crying out in palpating LLQ and left pelvic area. Exam somewhat limited by obesity. Remaining abdominal exam with minimal non-specific tenderness but no guarding. GENITOURINARY: Deferred EXTREMITIES: Moves all 4 extremities spontaneously. No edema, normal radial and dorsalis pedis pulses bilaterally. No cyanosis. BACK: no cervical, thoracic, lumbar midline tenderness. No saddle anesthesia, normal distal neurovascular exam. NEUROLOGICAL: Alert and oriented x3. Normal speech. [cranial nerves II through XII grossly intact]. PSYCH: Normal affect, normal mood. SKIN: Warm, dry, normal turgor. No rashes or lesions noted. Course - Re-evaluation Re-evalutation: Patient has left lower quadrant tenderness on evaluation, remaining exam is unremarkable. She is alert and well-appearing. Vital signs are unremarkable. CBC, chemistry, urinalysis are nonspecific. No hematuria suggesting passing kidney stone, patient's presentation does not suggest this, she has no CVA tenderness or flank pain on my evaluation. Ultrasound with no visualized cyst, this was visualized multiple times recently, she most likely ruptured the cyst. Because of her pelvic pain I recommended a pelvic examination to complete workup but patient declined. She states she fee ls much better. Again a very benign examination, low suspicion of acute abdomen. She has been medicated for her symptoms. Requesting discharge. Discussed possible other causes of her pain, discussed follow-up and return precautions. Patient states understanding and agreement. - Vital Signs Vital signs: Temp Pulse Resp BP Pulse Ox 98.5 F 71 18 149/85 H 97 11/01/18 22:02 11/01/18 22:02 11/01/18 22:02 11/01/18 22:02 11/01/18 22:02 - Laboratory Result Diagrams: 11/01/18 20:22 11/01/18 20:22 Laboratory results interpreted by me: 11/01/18 11/01/18 20:22 20:22 WBC 13.2 H RDW 14.8 H Urine Blood SMALL H Discharge - Discharge Clinical Impression: Lower abdominal pain, Nausea Condition: Stable Disposition: HOME, SELF-CARE Additional Instructions: The cyst seen previously is not visualized anymore. Based on her symptoms I suspect he popped the cyst. The pain should resolve with time. Remaining workup does not show any concerning abnormalities Take provided medications as directed if needed. Follow-up with primary care. Return if you worsen including return for severe pain, vomiting, fever/chills, or any other concerning or worsening symptoms. Prescriptions: Docusate Sodium [Colace 100 mg Capsule] 100 mg PO ASDIR PRN #30 capsule PRN Reason: Ondansetron [Zofran Odt 4 mg Tablet] 1 - 2 tab PO Q4H PRN #15 tab.rapdis PRN Reason: For Nausea/Vomiting Forms: Return to Work Referrals: CHANI CALVILLO MD [Primary Care Provider] - Follow up as needed
[2018-11-01 20:56] LABS: ABSOLUTE BASOPHILS # (AUTO) 0.1 10^3/uL (0.0-0.2); ABSOLUTE EOSINOPHILS # (AUTO) 0.6 10^3/uL (0.0-0.6); ABSOLUTE LYMPHOCYTES (AUTO) 3.5 10^3/uL (0.5-4.7); ABSOLUTE MONOCYTES (AUTO) 0.9 10^3/uL (0.1-1.4); ABSOLUTE NEUT (AUTO) 8.1 10^3/uL (1.7-8.2); BASOPHILS % (AUTO) 0.4 % (0-2); EOSINOPHILS % (AUTO) 4.6 % (0-6); HEMATOCRIT 37.9 % (36.0-47.0); HEMOGLOBIN 12.6 g/dL (12.0-15.5); LYMPHOCYTES % (AUTO) 26.5 % (13-45); MEAN CORPUSCULAR HEMOGLOBIN 27.5 pg (27.0-33.4); MEAN CORPUSCULAR HGB CONC 33.3 g/dL (32.0-36.0); MEAN CORPUSCULAR VOLUME 83 fl (80-97); MONOCYTES % (AUTO) 6.8 % (3-13); PLATELET COUNT 306 10^3/uL (150-450); RED CELL DISTRIBUTION WIDTH 14.8 % (11.5-14.0); SEGMENTED NEUTROPHILS % (AUTO) 61.7 % (42-78); TOTAL CELLS COUNTED % (AUTO) 100 %; WHITE BLOOD COUNT 13.2 10^3/uL (4.0-10.5)
[2018-11-01 21:03] LABS: APPEARANCE,URINE CLEAR; BILIRUBIN,URINE NEGATIVE (NEGATIVE); COLOR,URINE YELLOW; GLUCOSE, URINE NEGATIVE (NEGATIVE); KETONES,URINE NEGATIVE (NEGATIVE); LEUKOCYTE ESTERASE,URINE NEGATIVE (NEGATIVE); NITRITE,URINE NEGATIVE (NEGATIVE); PROTEIN,URINE NEGATIVE (NEGATIVE); URINE SPECIFIC GRAVITY 1.013; UROBILINOGEN,URINE NEGATIVE mg/dL (<2.0)
--- NOTE | 2018-11-01 21:19 | RADIOLOGY REPORT (SQ) ---
EXAM DESCRIPTION: U/S NON OB PEL TV W/DOPPLER COMPLETED DATE/TIME: 11/01/2018 9:03 pm REASON FOR STUDY: sharp LLQ pain, nausea LMP 10/29/2018 COMPARISON: 10/05/2018 TECHNIQUE: Dynamic and static grayscale images acquired of the pelvis via transvaginal approach and recorded on PACS. Additional selected color Doppler and spectral images recorded. LIMITATIONS: None. FINDINGS: UTERUS: Contour normal. No mass. ENDOMETRIAL STRIPE: No focal or generalized thickening. No masses. CERVIX: 2.4 cm. RIGHT OVARY AND DOPPLER: Ovary not seen. LEFT OVARY AND DOPPLER: Ovary not seen. FREE FLUID: None noted. OTHER: No other significant finding. MEASUREMENTS: UTERUS: 8.2 x 4.2 x 4.1 cm. ENDOMETRIAL STRIPE: 5 mm. RIGHT OVARY: Ovary not seen. LEFT OVARY: Ovary not seen. IMPRESSION: Limited transvaginal pelvic ultrasound. No uterine abnormality is seen. The ovaries co uld not be seen. TECHNICAL DOCUMENTATION: JOB ID: [id number] [employer]- All Rights Reserved Rev Reading location - IP/workstation name: [email or web address]
[2018-11-01 21:28] LABS: ANION GAP 8 (5-19); BLOOD UREA NITROGEN 11 mg/dL (7-20); CARBON DIOXIDE 30 mmol/L (22-30); CHLORIDE 100 mmol/L (98-107); GLUCOSE 109 mg/dL (75-110); POTASSIUM 4.4 mmol/L (3.6-5.0); SODIUM 137.5 mmol/L (137-145)
[2018-11-01] MEDS ORDERED: HYDROCODONE/ACETAMINOPHEN 5-325 MG (6 TAB/ER DISP) PO PRN (21:48)
[2018-11-01 22:03] VITALS: BP 149/85
== END 2018-11-01 22:03 | disposition home or self-care (01) ==
LOC: ER 19:17
DX: R10.30 Lower abdominal pain, unspecified (principal); R11.0 Nausea; I10 Essential (primary) hypertension; E11.9 Type 2 diabetes mellitus without complications
CPT/HCPCS: 36415; 76830; 80048; 81001; 81025; 85025; 93976; 99284

== ENCOUNTER 2019-02-12 16:24 | Emergency (ER) | payer BC ==
[2019-02-12] MEDS ORDERED: OXYCODONE-ACETAMINOPHEN 5-325 MG TABLET PO ONE (17:23)
--- NOTE | 2019-02-12 17:25 | ER Document Report ---
HPI - HPI Patient complains to provider of: Left shoulder pain Time Seen by Provider: 02/12/19 17:16 Onset: Other - 3 weeks Onset/Duration: Persistent Quality of pain: Achy Pain Level: 4 Context: Patient presents complaining of left shoulder pain for the past 3 weeks. Patient denies any injury. Patient denies any fever, cough or chest pain. Patient states pain is reproduced with movement of the joint and resolves when she holds her arm still. Associated Symptoms: Other - Left shoulder joint. denies: Chest pain, Nonproductive cough, Productive cough, Fever Exacerbated by: Movement Relieved by: Remaining still Similar symptoms previously: No Recently seen / treated by doctor: No - ROS ROS below otherwise negative: Yes Systems Reviewed and Negative: Yes All other systems reviewed and negative - CONSTITUTIONAL Constitutional: DENIES: Fever - NEURO Neurology: DENIES: Weakness - CARDIOVASCULAR Cardiovascular: DENIES: Chest pain - RESPIRATORY Respiratory: DENIES: Trouble Breathing, Coughing - GASTROINTESTINAL Gastrointestinal: DENIES: Nausea - REPRODUCTIVE Reproductive: DENIES: : - MUSCULOSKELETAL Musculoskeletal: REPORTS: Extremity pain, Back Pain - DERM Skin Color: Normal Skin Problems: None Past Medical History - General Information source: Patient - Social History Smoking Status: Never Smoker Chew tobacco use (# tins/day): No Drug Abuse: None Occupation: sales clerk food Lives with: Family Family History: Reviewed & Not Pertinent Patient has suicidal ideation: No Patient has homicidal ideation: No - Past Medical History Cardiac Medical History: Reports: Hx Atrial Fibrillation - Ablation done, Hx Hypercholesterolemia, Hx Hypertension Pulmonary Medical History: Reports: Hx Bronchitis, Hx Sleep Apnea Neurological Medical History: Reports: Hx Migraine Endocrine Medical History: Reports: Hx Diabetes Mellitus Type 2 Renal/ Medical History: Reports: Hx Kidney Stones, Hx Ovarian Cysts. Denies: Hx Peritoneal Dialysis GI Medical History: Reports: Hx Gastroesophageal Reflux Disease Musculoskeletal Medical History: Reports Hx Gout, Reports Hx Musculoskeletal Deformity Psychiatric Medical History: Denies: Hx Depression Traumatic Medical History: Reports: Hx Traumatic Brain Injury - CLOSED Past Surgical History: Reports: Hx Cardiac Catheterization - negative, Hx Cardiac Surgery - ablation, heart cath in march, Hx Orthopedic Surgery - cyst - Immunizations Immunizations up to date: Yes Hx Diphtheria, Pertussis, Tetanus Vaccination: Yes Vertical Provider Document - CONSTITUTIONAL Agree With Documented VS: Yes Exam Limitations: No Limitations General Appearance: WD/WN, No Apparent Distress - INFECTION CONTROL TRAVEL OUTSIDE OF THE [place] IN LAST 30 DAYS: No - HEENT HEENT: Atraumatic, Normocephalic - NECK Neck: Normal Inspection, Supple - RESPIRATORY Respiratory: Breath Sounds Normal, No Respiratory Distress - CARDIOVASCULAR Cardiovascular: Regular Rate, Regular Rhythm Pulses: Normal: Radial - BACK Back: Abnormal Inspection - Left trapezius muscle tenderness. negative: CVA Tenderness-Right, CVA Tenderness-Left - MUSCULOSKELETAL/EXTREMETIES Musculoskeletal/Extremeties: MAEW, FROM, Tender - Shoulder joint tenderness to anterior aspect and superior aspect of left humeral head. Left shoulder joint tenderness increases with extension and abduction. Patient with full passive range of motion, no deformity or dislocation, No Edema - NEURO Level of Consciousness: Awake, Alert, Appropriate Motor/Sensory: No Motor Deficit, No Sensory Deficit - DERM Integumentary: Warm, Dry, No Rash Course - Re-evaluation Re-evalutation: 02/12/19 18:07 Patient without any acute fracture noted on x-ray, no concern for dislocation. Patient with incidental old healed clavicle fracture as well as arthritic changes noted to the AC joint. No concern for septic arthritis at this time. - Vital Signs Vital signs: Temp Pulse Resp BP Pulse Ox 98.1 F 89 18 141/77 H 98 02/12/19 16:34 02/12/19 16:34 02/12/19 16:34 02/12/19 16:34 02/12/19 16:34 - Diagnostic Test Radiology reviewed: Image reviewed, Reports reviewed Procedures - Immobilization Left Shoulder Pre-Proc Neuro Vasc Exam: Normal Immobilizer type: Sling Performed by: RN Post-Proc Neuro Vasc Exam: Normal Alignment checked and good: Yes Discharge - Discharge Clinical Impression: Arthritis Trapezius muscle strain Qualifiers: Encounter type: initial encounter Laterality: left Qualified Code(s): S46.812A - Strain of other muscles, fascia and tendons at shoulder and upper arm level, left arm, initial encounter Shoulder joint pain Qualifiers: Laterality: left Qualified Code(s): M25.512 - Pain in left shoulder Condition: Stable Disposition: HOME, SELF-CARE Instructions: Arthritis ([facility]), Muscle Relaxers ([facility]), Muscle Strain ([facility]), Temporary Sling ([facility]) Additional Instructions: Return immediately for any new or worsening symptoms Followup with your primary care provider, call tomorrow to make a followup appointment Wear sling while awake only for the next 3-4 days and then remove. Perform gentle range of motion exercises each day to the left shoulder joint. Follow-up with orthopedics for further evaluation, call tomorrow to make an appointment. Prescriptions: Lidocaine [Lidoderm 5% (700 mg) Transdermal Patch] 1 patch TP DAILY PRN #10 adh..patch PRN Reason: Methocarbamol [Robaxin 500 Mg Tablet] 500 mg PO QID PRN #20 tablet PRN Reason: Forms: Return to Work Referrals: CHANI CALVILLO MD [Primary Care Provider] - Follow up as needed [facility] [Provider Group] - Follow up tomorrow
--- NOTE | 2019-02-12 17:48 | RADIOLOGY REPORT (SQ) ---
EXAM DESCRIPTION: SHOULDER LEFT 2 OR MORE VIEWS COMPLETED DATE/TIME: 02/12/2019 5:38 pm REASON FOR STUDY: L shoulder pain COMPARISON: None. NUMBER OF VIEWS: Three views. TECHNIQUE: Internal rotation, external rotation, and Y view images acquired of the left shoulder. LIMITATIONS: None. FINDINGS: MINERALIZATION: Normal. BONES: Old fracture of the clavicle. No acute findings. JOINTS: Moderate arthrosis of the acromioclavicular joint VISUALIZED LUNGS AND RIBS: No pneumothorax. No rib fracture. SOFT TISSUES: No radiopaque foreign body. OTHER: No other significant finding. IMPRESSION: Degenerative changes. No evidence of acute injury. TECHNICAL DOCUMENTATION: JOB ID: [id number] [employer]- All Rights Reserved Reading location - IP/workstation name: [email or web address]
[2019-02-12] MEDS ORDERED: LIDOCAINE 5% (700 MG) TRANSDERMAL ADH..PATCH TP ONE (18:06)
[2019-02-12 19:03] VITALS: BP 146/82
== END 2019-02-12 19:02 | disposition home or self-care (01) ==
LOC: ER 16:24
DX: S46.812A Strain of other muscles, fascia and tendons at shoulder and upper arm level, left arm, initial encounter (principal); M25.512 Pain in left shoulder; X58.XXXA Exposure to other specified factors, initial encounter; I48.91 Unspecified atrial fibrillation; E78.00 Pure hypercholesterolemia, unspecified; I10 Essential (primary) hypertension; E11.9 Type 2 diabetes mellitus without complications; Z87.442 Personal history of urinary calculi
CPT/HCPCS: 99283

== ENCOUNTER 2019-03-21 15:25 | Emergency (ER) | payer BC ==
[2019-03-21] MEDS ORDERED: KETOROLAC TROMETHAMINE 60 MG/2 ML SDV IM ONE (16:24)
--- NOTE | 2019-03-21 16:27 | ER Document Report ---
ED Medical Screen (RME) - General Chief Complaint: Lower Abdominal Pain Stated Complaint: LOWER ABDOMINAL PAIN Time Seen by Provider: 03/21/19 16:19 Primary Care Provider: CHANI CALVILLO MD [Primary Care Provider] - Follow up as needed Notes: 43-year-old female presents to ED for bilateral lower/pelvic pain since morning. She states she has a extensive history of ovarian cyst last one was several months ago. She states she is also having urinary urgency when she does need to go she needs to go right then or she is incontinent. She is alert oriented respirations regular and unlabored speaking in full sentences walks with a even steady gait. Patient is morbidly obese. I have greeted and performed a rapid initial assessment of this patient. A comprehensive ED assessment and evaluation of the patient, analysis of test results and completion of medical decision making process will be conducted by an additional ED providers. Dictation of this chart was performed using voice recognition software; t herefore, there may be some unintended grammatical errors. TRAVEL OUTSIDE OF THE [place] IN LAST 30 DAYS: No - Related Data Allergies/Adverse Reactions: hydrochlorothiazide [Hydrochlorothiazide] Allergy (Severe, Verified 03/21/19 15:47) Hives Past Medical History - Social History Drug Abuse: None - Past Medical History Cardiac Medical History: Reports: Hx Atrial Fibrillation - Ablation done, Hx Hypercholesterolemia, Hx Hypertension Pulmonary Medical History: Reports: Hx Bronchitis, Hx Sleep Apnea Neurological Medical History: Reports: Hx Migraine Endocrine Medical History: Reports: Hx Diabetes Mellitus Type 2 Renal/ Medical History: Reports: Hx Kidney Stones, Hx Ovarian Cysts. 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 Past Surgical History: Reports: Hx Cardiac Catheterization - negative, Hx Cardiac Surgery - ablation, heart cath in march, Hx Orthopedic Surgery - cyst - Immunizations Immunizations up to date: Yes Hx Diphtheria, Pertussis, Tetanus Vaccination: Yes Physical Exam - Vital signs Vitals: Temp Pulse Resp BP Pulse Ox 98.3 F 90 20 148/86 H 95 03/21/19 15:57 03/21/19 15:57 03/21/19 15:57 03/21/19 15:57 03/21/19 15:57 Course - Vital Signs Vital signs: Temp Pulse Resp BP Pulse Ox 98.3 F 90 20 148/86 H 95 03/21/19 15:57 03/21/19 15:57 03/21/19 15:57 03/21/19 15:57 03/21/19 15:57 Doctor's Discharge - Discharge Referrals: CHANI CALVILLO MD [Primary Care Provider] - Follow up as needed
[2019-03-21 17:26] LABS: APPEARANCE,URINE SLIGHTLY-CLOUDY; BILIRUBIN,URINE NEGATIVE (NEGATIVE); COLOR,URINE YELLOW; GLUCOSE, URINE NEGATIVE (NEGATIVE); KETONES,URINE NEGATIVE (NEGATIVE); LEUKOCYTE ESTERASE,URINE TRACE (NEGATIVE); NITRITE,URINE NEGATIVE (NEGATIVE); PROTEIN,URINE NEGATIVE (NEGATIVE); URINE SPECIFIC GRAVITY 1.027; UROBILINOGEN,URINE NEGATIVE mg/dL (<2.0)
[2019-03-21 17:32] LABS: ABSOLUTE EOSINOPHILS # (AUTO) 0.3 10^3/uL (0.0-0.6); ABSOLUTE MONOCYTES (AUTO) 0.8 10^3/uL (0.1-1.4); ABSOLUTE NEUT (AUTO) 8.9 10^3/uL (1.7-8.2); BASOPHILS % (AUTO) 0.3 % (0-2); EOSINOPHILS % (AUTO) 2.2 % (0-6); HEMATOCRIT 39.7 % (36.0-47.0); HEMOGLOBIN 12.7 g/dL (12.0-15.5); LYMPHOCYTES % (AUTO) 23.1 % (13-45); MEAN CORPUSCULAR HEMOGLOBIN 26.6 pg (27.0-33.4); MEAN CORPUSCULAR VOLUME 83 fl (80-97); MONOCYTES % (AUTO) 6.1 % (3-13); PLATELET COUNT 296 10^3/uL (150-450); RED BLOOD COUNT 4.79 10^6/uL (3.72-5.28); RED CELL DISTRIBUTION WIDTH 14.5 % (11.5-14.0); SEGMENTED NEUTROPHILS % (AUTO) 68.3 % (42-78); TOTAL CELLS COUNTED % (AUTO) 100 %
[2019-03-21 17:56] LABS: ALANINE AMINOTRANSFERASE 19 U/L (9-52); ALKALINE PHOSPHATASE 73 U/L (38-126); ANION GAP 12 (5-19); ASPARTATE AMINO TRANSFERASE 18 U/L (14-36); BILIRUBIN,DIRECT 0.2 mg/dL (0.0-0.4); BILIRUBIN,TOTAL 0.5 mg/dL (0.2-1.3); BLOOD UREA NITROGEN 9 mg/dL (7-20); CALCIUM 9.2 mg/dL (8.4-10.2); CARBON DIOXIDE 26 mmol/L (22-30); CHLORIDE 103 mmol/L (98-107); GLUCOSE 125 mg/dL (75-110); POTASSIUM 4.5 mmol/L (3.6-5.0); SODIUM 140.8 mmol/L (137-145); TOTAL PROTEIN 7.8 g/dL (6.3-8.2)
[2019-03-21] MEDS ORDERED: FENTANYL CITRATE INJ/PF 100 MCG/2 ML AMPUL IV ONE (17:58)
--- NOTE | 2019-03-21 19:11 | RADIOLOGY REPORT (SQ) ---
EXAM DESCRIPTION: U/S NON-OB PELVIS TV W/O DOP COMPLETED DATE/TIME: 03/21/2019 6:45 pm REASON FOR STUDY: Pelvic pain worse on the left history of ovarian c COMPARISON: 11/01/2018 TECHNIQUE: Dynamic and static grayscale images acquired of the pelvis via transvaginal approach and recorded on PACS. Additional selected color Doppler and spectral images recorded. LIMITATIONS: None. FINDINGS: UTERUS: Contour normal. No mass. ENDOMETRIAL STRIPE: 5 mm. CERVIX: 2 cm. Nabothian cysts. RIGHT OVARY AND DOPPLER: Normal size. No worrisome masses. Normal arterial vascular flow without evid ence for torsion. 4.4 x 4.6 x 4.9 cm cyst. LEFT OVARY AND DOPPLER: Normal size. No worrisome masses. Normal arterial vascular flow without evide nce for torsion. FREE FLUID: None noted. OTHER: No other significant finding. MEASUREMENTS: UTERUS: 7.2 x 4.9 x 4.2 cm. ENDOMETRIAL STRIPE: 5 mm. RIGHT OVARY: 5.3 x 5.6 x 6.2 cm. LEFT OVARY: 2 x 2.6 x 1.8 cm. IMPRESSION: Prominent cyst on the right ovary, almost certainly benign. No follow-up imaging recomm ended. TECHNICAL DOCUMENTATION: JOB ID: [id number] [employer]- All Rights Reserved Rev-03/11 Reading location - IP/workstation name: [email or web address]
[2019-03-21] MEDS ORDERED: NORMAL SALINE 1000 ML 1,000 ML IV ONE (19:16)
--- NOTE | 2019-03-21 19:30 | ER Document Report ---
ED General - General Chief Complaint: Lower Abdominal Pain Stated Complaint: LOWER ABDOMINAL PAIN Time Seen by Provider: 03/21/19 16:19 Primary Care Provider: [facility] [Provider Group] - Follow up as needed [facility] [Provider Group] - Follow up as needed Notes: RME provider note: 43-year-old female presents to ED for bilateral lower/pelvic pain since morning. She states she has a extensive history of ovarian cyst last one was several months ago. She states she is also having urinary urgency when she does need to go she needs to go right then or she is incontinent. She is alert oriented respirations regular and unlabored speaking in full sentences walks with a even steady gait. Patient is morbidly obese. My HPI: Patient is denying any vaginal discharge or bleeding. She is denying any vomiting, nausea, back pain, upper abdominal pain. Patient states she does have an extensive history of ovarian cyst and feels as though this may be similar. Patient states she does not have any insurance and has no follow-up. TRAVEL OUTSIDE OF THE [place] IN LAST 30 DAYS: No - Related Data Allergies/Adverse Reactions: hydrochlorothiazide [Hydrochlorothiazide] Allergy (Severe, Verified 03/21/19 15:47) Hives Past Medical History - General Information source: Patient - Social History Smoking Status: Unknown if Ever Smoked Drug Abuse: None Family History: Reviewed & Not Pertinent Patient has suicidal ideation: No Patient has homicidal ideation: No - Past Medical History Cardiac Medical History: Reports: Hx Atrial Fibrillation - Ablation done, Hx Hypercholesterolemia, Hx Hypertension Pulmonary Medical History: Reports: Hx Bronchitis, Hx Sleep Apnea Neurological Medical History: Reports: Hx Migraine Endocrine Medical History: Reports: Hx Diabetes Mellitus Type 2 Renal/ Medical History: Reports: Hx Kidney Stones, Hx Ovarian Cysts. 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 Past Surgical History: Reports: Hx Cardiac Catheterization - negative, Hx Cardiac Surgery - ablation, heart cath in march, Hx Orthopedic Surgery - cyst - Immunizations Immunizations up to date: Yes Hx Diphtheria, Pertussis, Tetanus Vaccination: Yes Review of Systems - Review of Systems Constitutional: denies: Fever EENT: No symptoms reported Cardiovascular: No symptoms reported Respiratory: No symptoms reported Gastrointestinal: See HPI Genitourinary: See HPI Female Genitourinary: See HPI, Last menstrual period - Unknown Musculoskeletal: No symptoms reported Skin: No symptoms reported Hematologic/Lymphatic: No symptoms reported Neurological/Psychological: No symptoms reported Physical Exam - Vital signs Vitals: Temp Pulse Resp BP Pulse Ox 98.3 F 90 20 148/86 H 95 03/21/19 15:57 03/21/19 15:57 03/21/19 15:57 03/21/19 15:57 03/21/19 15:57 - Notes Notes: GENERAL: Morbidly obese alert, interacts well. No acute distress. HEAD: Normocephalic, atraumatic. EYES: Pupils equal, round, and reactive to light. Extraocular movements intact. ENT: Oral mucosa moist, tongue midline. NECK: Full range of motion. Supple. Trachea midline. LUNGS: Clear to auscultation bilaterally, no wheezes, rales, or rhonchi. No respiratory distress. HEART: Regular rate and rhythm. No murmur ABDOMEN: Morbidly obese soft, non-tender. Non-distended. Bowel sounds present in all 4 quadrants. Generalized left pelvic pain noted. EXTREMITIES: Moves all 4 extremities spontaneously. No edema, normal radial and dorsalis pedis pulses bilaterally. No cyanosis. BACK: no cervical, thoracic, lumbar midline tenderness. No saddle anesthesia, normal distal neurovascular exam. NEUROLOGICAL: Alert and oriented x3. Normal speech. cranial nerves II through XII grossly intact PSYCH: Normal affect, normal mood. SKIN: Warm, dry, normal turgor. No rashes or lesions noted. Course - Re-evaluation Re-evalutation: 03/21/19 19:29 Laboratory 03/21/19 03/21/19 03/21/19 16:15 16:48 16:48 WBC 13.0 H RBC 4.79 Hgb 12.7 Hct 39.7 MCV 83 MCH 26.6 L MCHC 32.0 RDW 14.5 H Plt Count 296 Seg Neutrophils % 68.3 Lymphocytes % 23.1 Monocytes % 6.1 Eosinophils % 2.2 Basophils % 0.3 Absolute Neutrophils 8.9 H Absolute Lymphocytes 3.0 Absolute Monocytes 0.8 Absolute Eosinophils 0.3 Absolute Basophils 0.0 Sodium 140.8 Potassium 4.5 Chloride 103 Carbon Dioxide 26 Anion Gap 12 BUN 9 Creatinine 0.51 L Est GFR ( Amer) > 60 Est GFR (Non-Af Amer) > 60 Glucose 125 H Calcium 9.2 Total Bilirubin 0.5 Direct Bilirubin 0.2 Neonat Total Bilirubin Not Reportable Neonat Direct Bilirubin Not Reportable Neonat Indirect Bili Not Reportable AST 18 ALT 19 Alkaline Phosphatase 73 Total Protein 7.8 Albumin 4.0 Serum HCG, Qual Urine Color YELLOW Urine Appearance SLIGHTLY-CLOUDY Urine pH 7.0 Ur Specific [place] 1.027 Urine Protein NEGATIVE Urine Glucose (UA) NEGATIVE Urine Ketones NEGATIVE Urine Blood NEGATIVE Urine Nitrite NEGATIVE Urine Bilirubin NEGATIVE Urine Urobilinogen NEGATIVE Ur Leukocyte Esterase TRACE H Urine WBC (Auto) 4 Urine RBC (Auto) 1 Squamous Epi Cells Auto 4 Urine Mucus (Auto) OCC Urine Ascorbic Acid NEGATIVE 03/21/19 16:48 WBC RBC Hgb Hct MCV MCH MCHC RDW Plt Count Seg Neutrophils % Lymphocytes % Monocytes % Eosinophils % Basophils % Absolute Neutrophils Absolute Lymphocytes Absolute Monocytes Absolute Eosinophils Absolute Basophils Sodium Potassium Chloride Carbon Dioxide Anion Gap BUN Creatinine Est GFR ( Amer) Est GFR (Non-Af Amer) Glucose Calcium Total Bilirubin Direct Bilirubin Neonat Total Bilirubin Neonat Direct Bilirubin Neonat Indirect Bili AST ALT Alkaline Phosphatase Total Protein Albumin Serum HCG, Qual NEGATIVE Urine Color Urine Appearance Urine pH Ur Specific [place] Urine Protein Urine Glucose (UA) Urine Ketones Urine Blood Urine Nitrite Urine Bilirubin Urine Urobilinogen Ur Leukocyte Esterase Urine WBC (Auto) Urine RBC (Auto) Squamous Epi Cells Auto Urine Mucus (Auto) Urine Ascorbic Acid Transvaginal US 03/21/19 16:25 IMPRESSION: Prominent cyst on the right ovary, almost certainly benign. No follow-up imaging recommended. Patient's ultrasound shows no signs of torsion bilaterally. There is noted to be a right ovarian cyst. Patient states pain is both right and left pelvic upon explanation of ultrasound results to her at bedside. Reexamination elicits more pain now on the right than on the left. Patient is requesting pain management. I discussed she needs to follow-up with [facility], [facility] for further treatment. Patient voices understanding, stable for discharge. - Vital Signs Vital signs: Temp Pulse Resp BP Pulse Ox 98.3 F 90 20 148/86 H 95 03/21/19 15:57 03/21/19 15:57 03/21/19 15:57 03/21/19 15:57 03/21/19 15:57 - Laboratory Result Diagrams: 03/21/19 16:48 03/21/19 16:48 Laboratory results interpreted by me: 03/21/19 03/21/19 03/21/19 16:15 16:48 16:48 WBC 13.0 H MCH 26.6 L RDW 14.5 H Absolute Neutrophils 8.9 H Creatinine 0.51 L Glucose 125 H Ur Leukocyte Esterase TRACE H Discharge - Discharge Clinical Impression: Ovarian cyst Qualifiers: Laterality: right Qualified Code(s): N83.201 - Unspecified ovarian cyst, right side Condition: Stable Disposition: HOME, SELF-CARE Instructions: Ovarian Cyst (COUNTS INCLUDE 234 BEDS AT THE [facility]) Additional Instructions: As we discussed you have been seen and treated in the emergency department for an ovarian cyst. Please make sure he follow-up at [facility], or [facility] for further Treatment. I have also provided phone numbers for [facility] [employer] should you get your insurance back. Please return to the emergency room for any other concerns Referrals: [facility] [Provider Group] - Follow up as needed [facility] [Provider Group] - Follow up as needed
[2019-03-21] MEDS ORDERED: HYDROCODONE/ACETAMINOPHEN 5-325 MG (6 TAB/ER DISP) PO PRN (19:45)
[2019-03-21 20:00] VITALS: BP 147/77
== END 2019-03-21 19:58 | disposition home or self-care (01) ==
LOC: ER 15:25
DX: N83.201 Unspecified ovarian cyst, right side (principal); R10.30 Lower abdominal pain, unspecified; E66.01 Morbid (severe) obesity due to excess calories; I48.91 Unspecified atrial fibrillation; E78.00 Pure hypercholesterolemia, unspecified; I10 Essential (primary) hypertension; E11.9 Type 2 diabetes mellitus without complications; Z87.442 Personal history of urinary calculi
CPT/HCPCS: 99284; 96372; 96374; 36415; 87086; 84703; 85025; 80053; 81001; 76830; J1885; J3010

== ENCOUNTER 2019-09-16 08:58 | Emergency (ER) | payer BC ==
[2019-09-16] MEDS ORDERED: IBUPROFEN 800 MG TABLET PO ONE (09:23)
--- NOTE | 2019-09-16 09:23 | ER Document Report ---
ED Extremity Problem, Upper - General Chief Complaint: Shoulder Pain Stated Complaint: RIGHT ARM PAIN Time Seen by Provider: 09/16/19 09:17 Primary Care Provider: CHANI CALVILLO MD [Primary Care Provider] - Follow up in 3-5 days Mode of Arrival: Ambulatory Information source: Patient Notes: 43-year-old female presents to ED for pain in her right shoulder. She states she pulled a muscle in her shoulder a couple months ago and it was starting to get better and yesterday she was throwing trash into a dumpster at work she threw it up the first time but when she went to try to throw it up into the dumpster she felt like something popped in her shoulder. States she did not fall or hit her shoulder on anything. She does have a lot of pain in the shoulder now TRAVEL OUTSIDE OF THE [place] IN LAST 30 DAYS: No - HPI Patient complains to provider of: Pain, Right, Shoulder Onset: Yesterday - Previous injury now more painful after throwing truck trash Recent injury: Possibly Where: Outdoors, Work Quality of pain: Achy, Sharp Severity of pain: Moderate Pain Level: 4 Associated symptoms: None Exacerbated by: Movement, Exertion Relieved by: Rest, Positioning Similar symptoms previously: Yes Recently seen / treated by doctor: No - Related Data Allergies/Adverse Reactions: hydrochlorothiazide [Hydrochlorothiazide] Allergy (Severe, Verified 09/16/19 09:06) Hives Home Medications: bydureon injection. augmentin. fiorcet. ibuprofen Past Medical History - General Information source: Patient - Social History Smoking Status: Never Smoker Chew tobacco use (# tins/day): No Frequency of alcohol use: None Drug Abuse: None Occupation: [employer] Lives with: Family Family History: Reviewed & Not Pertinent Patient has suicidal ideation: No Patient has homicidal ideation: No - Past Medical History Cardiac Medical History: Reports: Hx Atrial Fibrillation - Ablation done, Hx Hypercholesterolemia, Hx Hypertension Pulmonary Medical History: Reports: Hx Bronchitis, Hx Sleep Apnea EENT Medical History: Reports: None Neurological Medical History: Reports: Hx Migraine Endocrine Medical History: Reports: Hx Diabetes Mellitus Type 2 Renal/ Medical History: Reports: Hx Kidney Stones, Hx Ovarian Cysts Malignancy Medical History: Reports: None GI Medical History: Reports: Hx Gastroesophageal Reflux Disease Musculoskeletal Medical History: Reports Hx Arthritis, Reports Hx Gout, Reports Hx Musculoskeletal Deformity Skin Medical History: Reports None Psychiatric Medical History: Reports: None Traumatic Medical History: Reports: None Infectious Medical History: Reports: None Past Surgical History: Reports: Hx Cardiac Catheterization - negative, Hx Cardiac Surgery - ablation, heart cath in march, Hx Orthopedic Surgery - cyst - Immunizations Immunizations up to date: Yes Hx Diphtheria, Pertussis, Tetanus Vaccination: Yes - 2013 Review of Systems - Review of Systems Constitutional: No symptoms reported EENT: No symptoms reported Cardiovascular: No symptoms reported Respiratory: No symptoms reported Gastrointestinal: No symptoms reported Genitourinary: No symptoms reported Female Genitourinary: No symptoms reported Musculoskeletal: Joint pain, Muscle pain. denies: Joint swelling Skin: No symptoms reported Hematologic/Lymphatic: No symptoms reported Neurological/Psychological: No symptoms reported -: Yes All other systems reviewed and negative Physical Exam - Vital signs Vitals: Temp Pulse Resp BP Pulse Ox 97.4 F 84 16 151/91 H 95 09/16/19 09:06 09/16/19 09:06 09/16/19 09:06 09/16/19 09:06 09/16/19 09:06 Interpretation: Normal - General General appearance: Appears well, Alert - HEENT Head: Normocephalic, Atraumatic Eyes: Normal Pupils: PERRL - Respiratory Respiratory status: No respiratory distress Chest status: Nontender Breath sounds: Normal Chest palpation: Normal - Cardiovascular Rhythm: Regular Heart sounds: Normal auscultation Murmur: No - Abdominal Inspection: Normal Distension: No distension Bowel sounds: Normal Tenderness: Nontender Organomegaly: No organomegaly - Back Back: Normal, Nontender - Extremities General upper extremity: Normal inspection, Nontender, Normal color, Normal ROM, Normal temperature General lower extremity: Normal inspection, Nontender, Normal color, Normal ROM, Normal temperature, Normal weight bearing. No: Debby's sign - Neurological Neuro grossly intact: Yes Cognition: Normal Orientation: AAOx4 Sandra Coma Scale Eye Opening: Spontaneous Sandra Coma Scale Verbal: Oriented Sandra Coma Scale Motor: Obeys Commands Sandra Coma Scale Total: 15 Speech: Normal Motor strength normal: LUE, RUE, LLE, RLE Sensory: Normal - Psychological Associated symptoms: Normal affect, Normal mood - Skin Skin Temperature: Warm Skin Moisture: Dry Skin Color: Normal Course - Re-evaluation Re-evalutation: 09/16/19 11:30 X-ray discussed with patient. Patient was given instructions on exercises ibuprofen and Tylenol and follow-up with primary care and orthopedics if her pain in the shoulder continued. She was able to verbalize understanding and agreement with treatment plan and patient was discharged home. - Vital Signs Vital signs: Temp Pulse Resp BP Pulse Ox 97.4 F 84 16 151/91 H 95 09/16/19 09:06 09/16/19 09:06 09/16/19 09:06 09/16/19 09:06 09/16/19 09:06 - Diagnostic Test Radiology reviewed: Image reviewed, Reports reviewed Discharge - Discharge Clinical Impression: Pain in right shoulder Qualifiers: Chronicity: acute Qualified Code(s): M25.511 - Pain in right shoulder Condition: Stable Disposition: HOME, SELF-CARE Additional Instructions: Shoulder Injury You have injured your shoulder. This usually results from stretching or tearing of the tendons during trauma. Time and protection are required in order to heal properly. Many injuries are quite disabling, and should be taken seriously. Initial treatment includes cold packs and a sling to rest the shoulder. The physician has assessed the seriousness of your injury, and has outlined a treatment plan. Understand that this treatment may change, depending on how you progress. If a re-examination was recommended, it is important that you follow up as instructed. Some shoulder injuries (such as partial tear of the rotator cuff) are only suspected after you've failed to improve. Call us if there's severe pain, numbness, or loss of function. Exercise Program for the Shoulder Since the shoulder moves in so many directions, the joint attachment is weak. Muscles provide most of the stability to the shoulder. You must exercise your shoulder to prevent painful instability or stiffening. PASSIVE - These may be begun within a few days of the injury. While standing, lean forward, allowing the arm to hang down towards the floor. Move the arm in small circles while slowly twisting your chest towards and away from the hanging arm. Do this for one minute. ACTIVE - These may be performed when the doctor gives permission. Begin with the arms at the sides. Raise the arms forward (shoulder's width apart) until they reach shoulder level. Then slowly swing both arms back until they are aiming straight out away from each other. Then bring them forward again, and finally, lower them to your sides. Repeat 20 to 30 times. As you improve, put weights in your hands for the exercise. Start with one pound, and work up to 10 pounds. Never use more than is comfortable. Athletes may work up to 30 pounds. Acetaminophen Acetaminophen may be taken for pain relief or fever control. It's much safer than aspirin, offering a wider range of "safe" dosages. It is safe during . Some brand names are Tylenol, Panadol, Datril, Anacin 3, Tempra, and Liquiprin. Acetaminophen can be repeated every four hours. The following are maximum recommended dosages: WEIGHT Dose Drops Elixir Ch ewable(80mg) (LBS.) drprs=droppers tsp=teaspoon 6 40 mg .4 ml (1/2) 6-11 80 mg .8 ml (full) 1/2 tsp 1 tab 12-16 120 mg 1 1/2 drprs 3/4 tsp 1 1/2 tabs 17-23 160 mg 2 drprs 1 tsp 2 tabs 24-30 240 mg 3 drprs 1 1/2 tsp 3 tabs 30-35 320 mg 2 tsp 4 tabs 36-41 360 mg 2 1/4 tsp 4 1/2 tabs 42-47 400 mg 2 1/2 tsp 5 tabs 48-53 480 mg 3 tsp 6 tabs 54-59 520 mg 3 1/4 tsp 6 1/2 tabs 60-64 560 mg 3 1/2 tsp 7 tabs 65-70 600 mg 3 3/4 tsp 7 1/2 tabs 71-76 640 mg 4 tsp 8 tabs 77-82 720 mg 4 1/2 tsp 9 tabs 83-88 800 mg 5 tsp 10 tabs >89 pounds or adults 650 mg to 900 mg Acetaminophen can be repeated every four hours. Maximum daily dose not to exceed 4000 mg. These maximum recommended dosages are slightly higher than the dosages written on the product container, but these dosages are very safe and well below the toxic dosage for acetaminophen. Ibuprofen Ibuprofen is an excellent, safe drug for pain control. In addition, it has potent antiinflammatory effects which are beneficial, especially in the treatment of injuries, arthritis, or tendonitis. It's best to take ibuprofen with food. Persons with ulcer disease or allergy to aspirin should notify their physician of this before taking ibuprofen. Take the medication exactly as prescribed. Don't take additional doses unless instructed to do so by your doctor. If you develop wheezing, shortness of breath, hives, faintness, stomach pain, vomiting, or dark black stools, return for re-evaluation at once. Ice Packs Apply ice packs frequently against the painful area. Many different schedules are recommended, such as "20 minutes on, 20 minutes off" or "one hour ice, two hours rest." If you need to work, you may need to go longer between ice treatments. You should plan to have the area ice packed AT LEAST one fourth of the time. The ice should be applied over the wrap, tape, or splint, or over a layer of cloth -- not directly against the skin. Some ice bags have a built-in cloth and can be put directly on the skin. FOLLOW-UP CARE: If you have been referred to a physician for follow-up care, call the physicians office for an appointment as you were instructed or within the next two days. If you experience worsening or a significant change in your symptoms, notify the physician immediately or return to the Emergency Department at any time for re-evaluation. Forms: Elevated Blood Pressure, Return to Work Referrals: CHANI CALVILLO MD [Primary Care Provider] - Follow up in 3-5 days
[2019-09-16 09:25] VITALS: BP 151/91
--- NOTE | 2019-09-16 10:10 | RADIOLOGY REPORT (SQ) ---
EXAM DESCRIPTION: SHOULDER RIGHT 2 OR MORE VIEWS COMPLETED DATE/TIME: 09/16/2019 9:42 am REASON FOR STUDY: pain and injury COMPARISON: None. NUMBER OF VIEWS: Three views. TECHNIQUE: Internal rotation, external rotation, and Y view images acquired of the right shoulder. LIMITATIONS: None. FINDINGS: MINERALIZATION: Normal. BONES: No acute fracture. No worrisome bone lesions. JOINTS: No dislocation. VISUALIZED LUNGS AND RIBS: No pneumothorax. No rib fracture. SOFT TISSUES: No radiopaque foreign body. OTHER: No other significant finding. IMPRESSION: NEGATIVE STUDY OF THE RIGHT SHOULDER. NO RADIOGRAPHIC EVIDENCE OF ACUTE INJURY. TECHNICAL DOCUMENTATION: JOB ID: [id number]- All Rights Reserved Reading location - IP/workstation name: [email or web address]
== END 2019-09-16 10:26 | disposition home or self-care (01) ==
LOC: ER 08:58
DX: M25.511 Pain in right shoulder (principal); M79.10 Myalgia, unspecified site; I48.91 Unspecified atrial fibrillation; E78.00 Pure hypercholesterolemia, unspecified; I10 Essential (primary) hypertension; Z87.442 Personal history of urinary calculi
CPT/HCPCS: 99283

== ENCOUNTER 2019-12-07 17:20 | Emergency (ER) | payer BC ==
[2019-12-07] MEDS ORDERED: ONDANSETRON 4 MG TAB.RAPDIS PO ONE (18:58)
[2019-12-07] MEDS ORDERED: OXYCODONE-ACETAMINOPHEN 5-325 MG TABLET PO ONE (18:58)
--- NOTE | 2019-12-07 18:58 | ER Document Report ---
ED Medical Screen (RME) - General Chief Complaint: Flank Pain Stated Complaint: LOW RIGHT QUADRANT PAIN Time Seen by Provider: 12/07/19 18:48 Primary Care Provider: CHANI CALVILLO MD [Primary Care Provider] - Follow up as needed Notes: Patient is a 44-year-old female with a history of hypertension, high cholesterol, restless leg, kidney stones, ovarian cysts who presents the emergency department with a chief complaint of abdominal pain. Patient states developing lower abdominal pain over the past 3 days. Patient reports that the lower abdominal pain is bilateral and feels like her normal ovarian cysts, p atient also reports that she is having lower back pain as well which is not usually a symptom that she has with her ovarian cyst. Patient reports urinary pressure. Denies fever, nausea, vomiting or diarrhea. TRAVEL OUTSIDE OF THE [place] IN LAST 30 DAYS: No - Related Data Allergies/Adverse Reactions: hydrochlorothiazide [Hydrochlorothiazide] Allergy (Severe, Verified 12/07/19 18:52) Hives Home Medications: mirapex, metoprolol, lisinopril, motrin, folic acid Past Medical History - Social History Chew tobacco use (# tins/day): No Frequency of alcohol use: None Drug Abuse: None - Past Medical History Cardiac Medical History: Reports: Hx Atrial Fibrillation - Ablation done, Hx Hypercholesterolemia, Hx Hypertension Pulmonary Medical History: Reports: Hx Bronchitis, Hx Sleep Apnea Neurological Medical History: Reports: Hx Migraine Endocrine Medical History: Reports: Hx Diabetes Mellitus Type 2 Renal/ Medical History: Reports: Hx Kidney Stones, Hx Ovarian Cysts GI Medical History: Reports: Hx Gastroesophageal Reflux Disease Musculoskeltal Medical History: Reports Hx Arthritis, Reports Hx Gout, Reports Hx Musculoskeletal Deformity Past Surgical History: Reports: Hx Cardiac Catheterization - negative, Hx Cardiac Surgery - ablation, heart cath in march, Hx Orthopedic Surgery - cyst - Immunizations Immunizations up to date: Yes Hx Diphtheria, Pertussis, Tetanus Vaccination: Yes - 2013 Physical Exam - Vital signs Vitals: Temp Pulse Resp BP Pulse Ox 98.5 F 93 16 149/84 H 96 12/07/19 17:55 12/07/19 17:55 12/07/19 17:55 12/07/19 17:55 12/07/19 17:55 Course - Re-evaluation Re-evalutation: 12/07/19 18:58 Patient require a thorough abdominal exam in the back. Will initiate ultrasound, IV, medications. Patient reports she is not driving. I have greeted and performed a rapid initial assessment of this patient. A comprehensive ED assessment and evaluation of the patient, analysis of test results and completion of the medical decision making process will be conducted by additional ED providers. - Vital Signs Vital signs: Temp Pulse Resp BP Pulse Ox 98.5 F 93 16 149/84 H 96 12/07/19 17:55 12/07/19 17:55 12/07/19 17:55 12/07/19 17:55 12/07/19 17:55 Doctor's Discharge - Discharge Referrals: CHANI CALVILLO MD [Primary Care Provider] - Follow up as needed
--- NOTE | 2019-12-07 20:05 | RADIOLOGY REPORT (SQ) ---
EXAM DESCRIPTION: U/S NON OB PEL TV W/DOPPLER COMPLETED DATE/TIME: 12/07/2019 7:53 pm REASON FOR STUDY: LOWER ABDOMINAL PAIN, HX. OVARIAN CYST COMPARISON: None. TECHNIQUE: Dynamic and static grayscale images acquired of the pelvis via transvaginal approach and recorded on PACS. Additional selected color Doppler and spectral images recorded. LIMITATIONS: Bowel gas. FINDINGS: UTERUS: Contour normal. No mass. ENDOMETRIAL STRIPE: No focal or generalized thickening. No masses. CERVIX: Small nabothian cysts. RIGHT OVARY AND DOPPLER: Ovary not visualized. LEFT OVARY AND DOPPLER: Ovary not visualized. FREE FLUID: None noted. OTHER: No other significant finding. MEASUREMENTS: UTERUS: 8 x 4.4 x 4.2 cm ENDOMETRIAL STRIPE: 5 mm RIGHT OVARY: Not visualized. LEFT OVARY: Not visualized. IMPRESSION: Nonvisualized ovaries. Unremarkable appearance of the uterus. TECHNICAL DOCUMENTATION: JOB ID: [id number] [place]-72 2010 [employer]- All Rights Reserved Rev-03/11 Reading location - IP/workstation name: [email or web address]
[2019-12-07 20:38] LABS: ABSOLUTE BASOPHILS # (AUTO) 0.1 10^3/uL (0.0-0.2); ABSOLUTE EOSINOPHILS # (AUTO) 0.7 10^3/uL (0.0-0.6); ABSOLUTE LYMPHOCYTES (AUTO) 4.3 10^3/uL (0.5-4.7); ABSOLUTE NEUT (AUTO) 7.5 10^3/uL (1.7-8.2); BASOPHILS % (AUTO) 0.6 % (0-2); EOSINOPHILS % (AUTO) 5.4 % (0-6); HEMATOCRIT 39.8 % (36.0-47.0); HEMOGLOBIN 13.1 g/dL (12.0-15.5); LYMPHOCYTES % (AUTO) 31.6 % (13-45); MEAN CORPUSCULAR HEMOGLOBIN 27.9 pg (27.0-33.4); MEAN CORPUSCULAR HGB CONC 33.1 g/dL (32.0-36.0); MEAN CORPUSCULAR VOLUME 84 fl (80-97); MONOCYTES % (AUTO) 7.3 % (3-13); PLATELET COUNT 302 10^3/uL (150-450); RED BLOOD COUNT 4.71 10^6/uL (3.72-5.28); RED CELL DISTRIBUTION WIDTH 13.9 % (11.5-14.0); SEGMENTED NEUTROPHILS % (AUTO) 55.1 % (42-78); TOTAL CELLS COUNTED % (AUTO) 100 %; WHITE BLOOD COUNT 13.6 10^3/uL (4.0-10.5)
[2019-12-07 20:50] LABS: APPEARANCE,URINE SLIGHTLY-CLOUDY; BILIRUBIN,URINE NEGATIVE (NEGATIVE); COLOR,URINE YELLOW; GLUCOSE, URINE NEGATIVE (NEGATIVE); KETONES,URINE NEGATIVE (NEGATIVE); LEUKOCYTE ESTERASE,URINE NEGATIVE (NEGATIVE); NITRITE,URINE NEGATIVE (NEGATIVE); PROTEIN,URINE NEGATIVE (NEGATIVE); URINE SPECIFIC GRAVITY 1.021; UROBILINOGEN,URINE NEGATIVE mg/dL (<2.0)
[2019-12-07] MEDS ORDERED: KETOROLAC TROMETHAMINE INJ/PF 30 MG/1 ML SDV IV ONE (21:03)
--- NOTE | 2019-12-07 21:03 | ER Document Report ---
ED General - General Chief Complaint: Flank Pain Stated Complaint: LOW RIGHT QUADRANT PAIN Time Seen by Provider: 12/07/19 18:48 Primary Care Provider: CHANI CALVILLO MD [PEDIATRICS] - Follow up as needed Notes: Patient is a 44-year-old white female with past medical history morbid obesity, hypertension, prediabetes and history of multiple ovarian cysts bilaterally who presents to the emergency department today with a chief complaint of lower abdominal pain bilaterally, worse on the left. Reports the pain began earlier today after eating some crackers. States her abdomen feels hard and crampy. She states the pain on the left side is worse and radiates up to the left mid back near her kidney. She denies any associated urinary complaints. Denies any nausea vomiting or diarrhea. She denies any fever chills or night sweats. No chest pain or shortness of breath. No vaginal bleeding or discharge. TRAVEL OUTSIDE OF THE [place] IN LAST 30 DAYS: No - Related Data Allergies/Adverse Reactions: hydrochlorothiazide [Hydrochlorothiazide] Allergy (Severe, Verified 12/07/19 18:52) Hives Home Medications: mirapex, metoprolol, lisinopril, motrin, folic acid Past Medical History - Social History Smoking Status: Never Smoker Chew tobacco use (# tins/day): No Frequency of alcohol use: None Drug Abuse: None Family History: Reviewed & Not Pertinent Patient has suicidal ideation: No Patient has homicidal ideation: No - Past Medical History Cardiac Medical History: Reports: Hx Atrial Fibrillation - Ablation done, Hx Hypercholesterolemia, Hx Hypertension Pulmonary Medical History: Reports: Hx Bronchitis, Hx Sleep Apnea Neurological Medical History: Reports: Hx Migraine Endocrine Medical History: Reports: Hx Diabetes Mellitus Type 2 Renal/ Medical History: Reports: Hx Kidney Stones, Hx Ovarian Cysts GI Medical History: Reports: Hx Gastroesophageal Reflux Disease Musculoskeletal Medical History: Reports Hx Arthritis, Reports Hx Gout, Reports Hx Musculoskeletal Deformity Past Surgical History: Reports: Hx Cardiac Catheterization - negative, Hx Cardiac Surgery - ablation, heart cath in march, Hx Orthopedic Surgery - cyst - Immunizations Immunizations up to date: Yes Hx Diphtheria, Pertussis, Tetanus Vaccination: Yes - 2013 Review of Systems - Review of Systems Gastrointestinal: Abdominal pain Genitourinary: Flank pain -: Yes All other systems reviewed and negative Physical Exam - Vital signs Vitals: Temp Pulse Resp BP Pulse Ox 98.5 F 93 16 149/84 H 96 02/13/20 17:55 12/07/19 17:55 12/07/19 17:55 12/07/19 17:55 12/07/19 17:55 - General General appearance: Appears well, Alert In distress: None - Respiratory Respiratory status: No respiratory distress Chest status: Nontender Breath sounds: Normal Chest palpation: Normal - Cardiovascular Rhythm: Regular Heart sounds: Normal auscultation - Abdominal Inspection: Normal Distension: No distension Bowel sounds: Normal Tenderness: Tender - Right lower left lower quadrant tenderness to palpation, worse in the left lower quadrant. There is left-sided CVA tenderness on palpation. Organomegaly: No organomegaly - Neurological Neuro grossly intact: Yes Cognition: Normal Orientation: AAOx4 Electra Coma Scale Eye Opening: Spontaneous Sandra Coma Scale Verbal: Oriented Electra Coma Scale Motor: Obeys Commands Electra Coma Scale Total: 15 Speech: Normal - Psychological Associated symptoms: Normal affect, Normal mood - Skin Skin Temperature: Warm Skin Moisture: Dry Skin Color: Normal Course - Re-evaluation Re-evalutation: 12/07/19 23:34 Imaging showing a 5 cm right ovarian cyst without evidence of torsion and incidental gallstones in the gallbladder per radiologist. Patient states that she is questioned her TANKER DRIVER in the past regarding potential hysterectomy, they advised her to wait. She states that she has another CHAIN REPAIRER that she is going to follow-up with her for second opinion. We will refer her to general surgery regarding the gallstones for evaluation. Discussed with her the importance of outpatient follow-up and advised that she return here or any ER immediately with any new, persistent or worsening symptoms. She verbalized understood and agreed. - Vital Signs Vital signs: Temp Pulse Resp BP Pulse Ox 97.7 F 84 16 145/66 H 95 12/07/19 23:15 12/07/19 23:15 12/07/19 17:55 12/07/19 23:15 12/07/19 23:15 - Laboratory Result Diagrams: 12/07/19 20:25 12/07/19 20:25 Laboratory results interpreted by me: 12/07/19 12/07/19 20:25 20:25 WBC 13.6 H Absolute Eos (auto) 0.7 H Urine Ascorbic Acid 40 H Discharge - Discharge Clinical Impression: Ovarian cyst Qualifiers: Laterality: unspecified laterality Qualified Code(s): N83.209 - Unspecified ovarian cyst, unspecified side Cholelithiasis Qualifiers: Cholelithiasis location: other site Biliary obstruction: without biliary obstruction Qualified Code(s): K80.80 - Other cholelithiasis without obstruction Abdominal pain Qualifiers: Abdominal location: unspecified location Qualified Code(s): R10.9 - Unspecified abdominal pain Condition: Stable Disposition: HOME, SELF-CARE Instructions: Ovarian Cyst ([facility]), Gallbladder Disease ([facility]) Additional Instructions: Follow-up with your new CHAIN REPAIRER as discussed. You have been referred to general surgery for your gallstones, call them for appointment and evaluation. Return here or any ER immediately with any new, persistent or worsening symptoms. Prescriptions: Naproxen 500 mg PO Q12 #20 tablet Tramadol HCl [Ultram 50 mg Tablet] 50 mg PO Q6 PRN #12 tab PRN Reason: moderate to severe pain Referrals: CHANI CALVILLO MD [PEDIATRICS] - Follow up as needed RUBIN GUAJARDO MD [ACTIVE STAFF] - Follow up as needed
[2019-12-07 21:10] LABS: ALKALINE PHOSPHATASE 68 U/L (38-126); ANION GAP 9 (5-19); ASPARTATE AMINO TRANSFERASE 22 U/L (14-36); BILIRUBIN,DIRECT 0.3 mg/dL (0.0-0.4); BILIRUBIN,TOTAL 0.4 mg/dL (0.2-1.3); BLOOD UREA NITROGEN 14 mg/dL (7-20); CALCIUM 9.2 mg/dL (8.4-10.2); CARBON DIOXIDE 29 mmol/L (22-30); CHLORIDE 101 mmol/L (98-107); GLUCOSE 94 mg/dL (75-110); POTASSIUM 4.3 mmol/L (3.6-5.0); TOTAL PROTEIN 8.1 g/dL (6.3-8.2)
--- NOTE | 2019-12-07 22:53 | RADIOLOGY REPORT (SQ) ---
CT ABDOMEN PELVIS WITH IV CONTRAST EXAM DATE: 12/07/2019 8:11 PM YOUTH MINISTRY DIRECTOR HISTORY: Right upper quadrant pain. Fall. COMPARISON: None. TECHNIQUE: CT scan of the abdomen and pelvis was performed with IV contrast. This exam was performed according to our departmental dose-optimization program, which includes automated exposure control, adjustment of the mA and/or kV according to patient size and/or use of iterative reconstruction technique. FINDINGS: The lung bases are clear. No pleural or pericardial effusions. Gallstones are present. Liver, spleen, pancreas, adrenal glands, and kidneys are unremarkable. There is a 5 cm right ovarian cyst. No hydronephrosis or urinary stones. No small bowel obstruction. The appendix is not visualized. No evidence of acute diverticulitis. No adenopathy, free fluid, or free air is identified. There are mild degenerative changes of the spine. The aorta is normal caliber. No acute fracture is identified. IMPRESSION: 1. Gallstones without inflammatory changes. 2. 5.0 cm benign appearing right ovarian cyst. No follow-up imaging is recommended. Reference: J Am Alva Radiol 2013;10:675-681
[2019-12-07 23:21] VITALS: BP 145/66
== END 2019-12-08 00:04 | disposition home or self-care (01) ==
LOC: ER 17:20
DX: N83.201 Unspecified ovarian cyst, right side (principal); K80.20 Calculus of gallbladder without cholecystitis without obstruction; I10 Essential (primary) hypertension; E11.9 Type 2 diabetes mellitus without complications; Z79.899 Other long term (current) drug therapy; Z79.1 Long term (current) use of non-steroidal anti-inflammatories (NSAID); Z88.8 Allergy status to other drugs, medicaments and biological substances
CPT/HCPCS: 99284; 96374; 36415; 85025; 81025; 80053; 81001; 76830; 93976; 74177; S0119; J1885

== ENCOUNTER 2019-12-15 03:56 | Observation (INO) | payer BC ==
[2019-12-15] MEDS ORDERED: KETOROLAC TROMETHAMINE INJ/PF 30 MG/1 ML SDV IV ONE (04:24)
[2019-12-15] MEDS ORDERED: ONDANSETRON HCL INJ/PF 4 MG/2 ML SDV IV ONE (04:24)
[2019-12-15] MEDS ORDERED: NORMAL SALINE 1000 ML 1,000 ML IV ONE (04:24)
--- NOTE | 2019-12-15 04:31 | ER Document Report ---
ED General - General Chief Complaint: Abdominal Pain Stated Complaint: ABDOMINAL PAIN Time Seen by Provider: 12/15/19 04:14 Primary Care Provider: VALENTIN BOTELLO MD [Primary Care Provider] - Follow up as needed TRAVEL OUTSIDE OF THE [place] IN LAST 30 DAYS: No - HPI Notes: 44-year-old female presenting via privately owned vehicle with a chief complaint of right upper quadrant abdominal pain and nausea. Patient was seen with similar presentation here 8 days ago by another provider and worked up very extensively with labs, urinalysis, CT abdomen/pelvis and pelvic ultrasound. She was found at that time to have cholelithiasis and an uncomplicated right ovarian cyst. She was sent home with naproxen and tramadol. She subsequently saw a hasher machine operator who has discussed with her the possibility of having a second opinion with another hasher machine operator regarding management of her pelvic pain. She was also referred to surgical clinic regarding her cholelithiasis but has not yet scheduled an appointment. Onset of severe right upper quadrant pain earlier this evening which is persistent radiating into the back and associated with nausea. No fever or chills. No vomiting. Denies dysuria at this time but notes that she saw small amount of blood in her urine several days ago. - Related Data Allergies/Adverse Reactions: hydrochlorothiazide [Hydrochlorothiazide] Allergy (Severe, Verified 12/07/19 18:52) Hives Home Medications: Mirapex 0.5mg. Lisinopril 20mg. metoprolol. Vitamin D Past Medical History - General Information source: Patient - Social History Smoking Status: Never Smoker Chew tobacco use (# tins/day): No Drug Abuse: None Family History: Reviewed & Not Pertinent Patient has suicidal ideation: No Patient has homicidal ideation: No - Past Medical History Cardiac Medical History: Reports: Hx Atrial Fibrillation - Ablation done, Hx Hypercholesterolemia, Hx Hypertension Pulmonary Medical History: Reports: Hx Bronchitis, Hx Sleep Apnea Neurological Medical History: Reports: Hx Migraine Endocrine Medical History: Reports: Hx Diabetes Mellitus Type 2 Renal/ Medical History: Reports: Hx Kidney Stones, Hx Ovarian Cysts GI Medical History: Reports: Hx Gastroesophageal Reflux Disease Musculoskeletal Medical History: Reports Hx Arthritis, Reports Hx Gout, Reports Hx Musculoskeletal Deformity Past Surgical History: Reports: Hx Cardiac Catheterization - negative, Hx Cardiac Surgery - ablation, heart cath in march, Hx Orthopedic Surgery - cyst - Immunizations Immunizations up to date: Yes Hx Diphtheria, Pertussis, Tetanus Vaccination: Yes - 2013 Review of Systems - Review of Systems Notes: Constitutional: Negative for fever. HENT: Negative for sore throat. Eyes: Negative for visual changes. Cardiovascular: Negative for chest pain. Respiratory: Negative for shortness of breath. Gastrointestinal: As per HPI. Genitourinary: As per HPI. Musculoskeletal: Negative for back pain. Skin: Negative for rash. Neurological: Negative for headaches, weakness or numbness. 10 point ROS negative except as marked above and in HPI. Physical Exam - Vital signs Vitals: Temp Pulse Resp BP Pulse Ox 97.9 F 90 18 137/82 H 100 12/15/19 04:03 12/15/19 04:03 12/15/19 04:03 12/15/19 04:03 12/15/19 04:03 - Notes Notes: GENERAL: Morbidly obese middle-age female who is tearful appearing to be in severe pain. SKIN: Good turgor no rashes. HEAD: Normocephalic atraumatic. EYES: PERRLA. EOMI. Conjunctivae and sclerae clear. EARS: CANALS AND TMS CLEAR. NOSE: CLEAR. MOUTH: Moist mucosa. Good dentition. No stridor or edema. No drooling. NECK: Supple. No masses or thyromegaly. No adenopathy. Carotids 2+ without bruits. No JVD. BACK: Symmetrical without tenderness. CHEST: Respirations unlabored. Breath sounds clear and symmetrical. HEART: Regular rhythm. No murmur gallop or rub. ABDOMEN: Exquisite tenderness right upper quadrant. Morbid obesity. Soft wit hout masses, organomegaly or rebound. Bowel sounds normally active. No bruits. GENITALIA: Deferred. EXTREMITIES: No edema. No calf tenderness. Cap refill less than 1.5 seconds. Dorsalis pedis and posterior tibial pulses 3+ and symmetrical. NEUROLOGICAL: GCS 15. Alert and oriented x3. Normal gait. Fluent speech. Cranial nerves II through XII intact. Sensorimotor and cerebellar normal. Normal tone. PSYCHIATRIC: Anxious affect. Course - Vital Signs Vital signs: Temp Pulse Resp BP Pulse Ox 97.9 F 90 18 137/82 H 100 12/15/19 04:03 12/15/19 04:03 12/15/19 04:03 12/15/19 04:03 12/15/19 04:03 - Laboratory Result Diagrams: 12/15/19 04:40 12/15/19 04:40 Laboratory results interpreted by me: 12/15/19 12/15/19 04:40 04:40 WBC 10.7 H RDW 14.2 H Glucose 124 H Discharge - Discharge Clinical Impression: Cholelithiasis, Abdominal pain Condition: Stable Disposition: ADMITTED INPATIENT Admitting Provider: Surgicalist Unit Admitted: Surgical Floor Referrals: VALENTIN BOTELLO MD [Primary Care Provider] - Follow up as needed
[2019-12-15 04:51] LABS: HEMATOCRIT 38.2 % (36.0-47.0); MEAN CORPUSCULAR HEMOGLOBIN 28.8 pg (27.0-33.4); MEAN CORPUSCULAR HGB CONC 33.9 g/dL (32.0-36.0); MEAN CORPUSCULAR VOLUME 85 fl (80-97); RED CELL DISTRIBUTION WIDTH 14.2 % (11.5-14.0); WHITE BLOOD COUNT 10.7 10^3/uL (4.0-10.5)
[2019-12-15 04:52] LABS: ABSOLUTE BASOPHILS # (AUTO) 0.1 10^3/uL (0.0-0.2); ABSOLUTE EOSINOPHILS # (AUTO) 0.4 10^3/uL (0.0-0.6); ABSOLUTE MONOCYTES (AUTO) 0.7 10^3/uL (0.1-1.4); ABSOLUTE NEUT (AUTO) 6.5 10^3/uL (1.7-8.2); BASOPHILS % (AUTO) 0.5 % (0-2); EOSINOPHILS % (AUTO) 3.7 % (0-6); LYMPHOCYTES % (AUTO) 28.5 % (13-45); MONOCYTES % (AUTO) 6.9 % (3-13); PLATELET COUNT 274 10^3/uL (150-450); SEGMENTED NEUTROPHILS % (AUTO) 60.4 % (42-78); TOTAL CELLS COUNTED % (AUTO) 100 %
[2019-12-15 05:05] LABS: ALBUMIN 3.9 g/dL (3.5-5.0); ALKALINE PHOSPHATASE 62 U/L (38-126); ANION GAP 6 (5-19); ASPARTATE AMINO TRANSFERASE 20 U/L (14-36); BILIRUBIN,TOTAL 0.5 mg/dL (0.2-1.3); BLOOD UREA NITROGEN 17 mg/dL (7-20); CALCIUM 8.9 mg/dL (8.4-10.2); CARBON DIOXIDE 30 mmol/L (22-30); CHLORIDE 104 mmol/L (98-107); GLUCOSE 124 mg/dL (75-110); POTASSIUM 4.5 mmol/L (3.6-5.0); TOTAL PROTEIN 7.4 g/dL (6.3-8.2)
[2019-12-15 05:20] LABS: APPEARANCE,URINE SLIGHTLY-CLOUDY; BILIRUBIN,URINE NEGATIVE (NEGATIVE); COLOR,URINE YELLOW; GLUCOSE, URINE NEGATIVE (NEGATIVE); KETONES,URINE NEGATIVE (NEGATIVE); PROTEIN,URINE NEGATIVE (NEGATIVE); UROBILINOGEN,URINE NEGATIVE mg/dL (<2.0)
--- NOTE | 2019-12-15 05:48 | RADIOLOGY REPORT (SQ) ---
Ultrasound of the right upper quadrant of the abdomen: 12/15/2019 4:46 AM [employer] Technique: Multiple grayscale color Doppler images of the right upper quadrant of the abdomen were obtained. Comparison: CT of abdomen and pelvis from 12/07/2019 History: 44-year old patient with right upper quadrant abdominal pain. Findings: The visualized portions of the hepatic parenchyma appear diffusely echogenic. There is no evidence to suggest intra or extrahepatic ductal dilatation. There is normal directional flow seen within the main portal vein. Cholelithiasis is seen with no evidence of gallbladder wall thickening or pericholecystic fluid. The common duct measures 3.0 mm. The right kidney measures up to 11.8 cm in length. The right kidney demonstrates normal cortical echogenicity with no evidence to suggest hydronephrosis. The visualized portions of the IVC, abdominal aorta, and pancreatic head appear normal. No free intraperitoneal fluid is seen. Impression: Cholelithiasis is seen. The common duct is within normal limits of size. Hepatic steatosis
[2019-12-15] MEDS ORDERED: NORMAL SALINE 1000 ML 1,000 ML IV PRN ×2 (06:37→18:23)
[2019-12-15] MEDS ORDERED: GLUCAGON,HUMAN RECOMB 1 MG INJ IM PRN (06:39)
[2019-12-15] MEDS ORDERED: DEXTROSE 50%-WATER 25 GM/50 ML DISP.SYRIN IV PRN ×2 (06:39)
[2019-12-15] MEDS ORDERED: DEXTROSE 40% GEL 15 GM TUBE PO PRN ×2 (06:39)
[2019-12-15] MEDS: INSULIN REG, HUMAN 100 UNIT/ML 3 ML VIAL (PYX) SUBCUT SCH ×2 (06:48→14:42)
[2019-12-15] MEDS: MORPHINE SULFATE 10 MG/ML INJ IV PRN ×3 (07:12→21:16)
[2019-12-15] MEDS: ONDANSETRON HCL INJ/PF 4 MG/2 ML SDV IV PRN ×2 (07:12→11:56)
[2019-12-15] MEDS: AMPICILLIN SOD/SULBACTAM 3 GM VIAL IV SCH ×2 (07:13→14:35)
--- NOTE | 2019-12-15 10:31 | RADIOLOGY REPORT (SQ) ---
EXAM DESCRIPTION: CT ABD/PELVIS WITH IV ORAL COMPLETED DATE/TIME: 12/15/2019 10:06 am REASON FOR STUDY: abd pain appy? COMPARISON: 12/07/2019 TECHNIQUE: CT scan of the abdomen and pelvis performed with intravenous and oral contrast using faviola antoinette scanning technique with dynamic intravenous contrast injection. Images reviewed with lung, soft t issue, and bone windows. Reconstructed coronal and sagittal MPR images reviewed. Delayed images for e valuation of the urinary system also acquired. All images stored on PACS. All CT scanners at this facility use dose modulation, iterative reconstruction, and/or weight based d osing when appropriate to reduce radiation dose to as low as reasonably achievable (ALARA). [facility]: Dose Right [facility]: CareDose [facility]: Dose Right [facility]: Teradose 4D [facility]: BigFix CONTRAST TYPE AND DOSE: contrast/concentration: Isovue 350.00 mg/ml; Total Contrast Delivered: 94.0 ml; Total Saline Delivered: 69.0 ml RENAL FUNCTION: GFR > 60. RADIATION DOSE: CT Rad equipment meets quality standard of care and radiation dose reduction techniq ues were employed. CTDIvol: 21.1 mGy. DLP: 2312 mGy-cm. . LIMITATIONS: Artifact from body habitus. FINDINGS: LOWER CHEST: No significant findings. No nodules or infiltrates. LIVER: Normal size. No masses. No dilated ducts. SPLEEN: Normal size. No focal lesions. PANCREAS: No masses. No significant calcifications. No adjacent inflammation or peripancreatic fluid collections. Pancreatic duct not dilated. GALLBLADDER: Gallstones. No inflammatory changes to suggest cholecystitis. ADRENAL GLANDS: No significant masses or asymmetry. RIGHT KIDNEY AND URETER: No solid masses. No significant calcifications. No hydronephrosis or hyd roureter. LEFT KIDNEY AND URETER: No solid masses. No significant calcifications. No hydronephrosis or hydr oureter. AORTA AND VESSELS: No aneurysm. No dissection. Renal arteries, SMA, celiac without stenosis. RETROPERITONEUM: No retroperitoneal adenopathy, hemorrhage or masses. BOWEL AND PERITONEAL CAVITY: No obstruction. No visualized masses. No free fluid. No inflammatory ch anges or thickening of bowel wall. APPENDIX: Not visualized. No inflammatory change in the right lower quadrant. PELVIS: 5 cm cyst right ovary not significantly changed. ABDOMINAL WALL: No masses. No hernias. BONES: No significant or acute findings. OTHER: No other significant finding. IMPRESSION: Cholelithiasis. No evidence of acute cholecystitis. 5 cm cyst right ovary. No evidence of acute appendicitis. TECHNICAL DOCUMENTATION: JOB ID: [id number] Quality ID # [id number]: Final reports with documentation of one or more dose reduction techniques (e.g., Au tomated exposure control, adjustment of the mA and/or kV according to patient size, use of iterative reconstruction technique) 2010 [employer]- All Rights Reserved Reading location - IP/workstation name: [email or web address]
--- NOTE | 2019-12-15 13:30 | PDOC H&P ---
History of Present Illness Admission Date/PCP: 12/15/19 06:10 VALENTIN BOTELLO MD Patient complains of: Right upper quadrant abdominal pain History of Present Illness: MANDI MARK is a 44 year old female presenting with several day history of intermittent right upper quadrant abdominal pain. Patient has been noted with gallstones and was referred to surgery but last night she developed a particularly bad episode of right upper quadrant abdominal pain that persisted and she subsequently came in through the ER. She denies any associated nausea vomiting nor diarrhea. She has had some subjective fever in the past several days. No history of jaundice. She suffers from chronic lower abdominal pain secondary to what she has been told as ovarian cysts. Past Medical History Cardiac Medical History: Reports: Hyperlipidema, Hypertension, Other - Ablation for cardiac arrhythmia in the past. Neurological Medical History: Reports: Other - History of restless leg syndrome Endocrine Medical History: Reports: Diabetes Mellitus Type 2 - Prediabetic GI Medical History: Reports: Gastroesophageal Reflux Disease Hematology: Denies: Anemia Past Surgical History Past Surgical History: Reports: Cardiac Catheterization - negative, Orthopedic Surgery - Wrist cyst Social History Smoking Status: Never Smoker Electronic Cigarette use?: No Frequency of Alcohol Use: Rare Hx Recreational Drug Use: No Hx Prescription Drug Abuse: No Family History Family History: Reviewed & Not Pertinent Parental Family History Reviewed: Yes - Kidney disease and diabetes Children Family History Reviewed: Yes Sibling(s) Family History Reviewed.: Yes Medication/Allergy Home Medications: Cholecalciferol (Vitamin D3) [Vitamin D3] 10,000 unit PO BID 12/15/19 Lisinopril [Prinivil] 20 mg PO DAILY 12/15/19 Metoprolol Tartrate [Lopressor 50 mg Tablet] 50 mg PO Q12 12/15/19 Pramipexole Di-HCl [Mirapex 0.5 mg Tablet] 0.5 mg PO Q8 12/15/19 Allergies/Adverse Reactions: hydrochlorothiazide [Hydrochlorothiazide] Allergy (Severe, Verified 12/07/19 18:52) Hives Review of Systems All systems: reviewed and no additional remarkable complaints except as stated Gastrointestinal: PRESENT: as per HPI Physical Exam Vital Signs: Temp Pulse Resp BP Pulse Ox 97.8 F 85 19 146/88 H 100 12/15/19 06:45 12/15/19 06:45 12/15/19 06:45 12/15/19 06:45 12/15/19 06:45 Intake & Output 12/14/19 12/15/19 12/16/19 06:59 06:59 06:59 Intake Total 1000 Balance 1000 Weight 165.561 kg General appearance: PRESENT: no acute distress, cooperative, morbidly obese Neck exam: PRESENT: other - Supple with no masses and no tenderness Respiratory exam: PRESENT: clear to auscultation sin Cardiovascular exam: PRESENT: RRR GI/Abdominal exam: PRESENT: other - Soft, markedly tender in the right upper quadrant as well as the entire right abdomen including the lower abdomen. Despite her exquisite tenderness I do not appreciate peritoneal signs. Neurological exam: PRESENT: alert, awake Psychiatric exam: PRESENT: anxious Skin exam: PRESENT: warm Results Laboratory Results: 12/15/19 04:40 12/15/19 04:40 12/15/19 12/15/19 12/15/19 04:40 04:40 04:40 WBC 10.7 H RBC 4.50 Hgb 13.0 Hct 38.2 MCV 85 MCH 28.8 MCHC 33.9 RDW 14.2 H Plt Count 274 Seg Neutrophils % 60.4 Sodium 139.6 Potassium 4.5 Chloride 104 Carbon Dioxide 30 Anion Gap 6 BUN 17 Creatinine 0.54 Est GFR ( Amer) > 60 Glucose 124 H Calcium 8.9 Total Bilirubin 0.5 AST 20 Alkaline Phosphatase 62 Total Protein 7.4 Albumin 3.9 Lipase 87.6 Urine Color YELLOW Urine Appearance SLIGHTLY-CLOUDY Urine pH 5.0 Ur Specific [place] 1.020 Urine Protein NEGATIVE Urine Glucose (UA) NEGATIVE Urine Ketones NEGATIVE Urine Blood NEGATIVE Urine RBC (Auto) 0 Assessment & Plan - Diagnosis (1) Cholelithiasis Is this a current diagnosis for this admission?: Yes Plan: Symptomatic cholelithiasis versus acute cholecystitis with cholelithiasis. Dread cook would benefit from a laparoscopic cholecystectomy. Because of her severe right-sided abdominal tenderness and pain a CT scan was obtained and it demonstrated no other significant findings then her gallstones and 5 cm right ovarian cyst. On repeat physical exam later in the day today, patient still has right upper quadrant abdominal pain although it is much less. She has right lower quadrant abdominal tenderness that she notes to be stable from her chronic right pelvic pain that she attributes to her right ovarian cyst. There are no peritoneal signs. Therefore will proceed with laparoscopic cholecystectomy possible open cholecystectomy. I have had a long discussion with the patient concerning the risk and benefits of the surgery including risk of bleeding, infection, adjacent structure injury such as bile duct injury and intestinal injury as well as mistaken diagnosis and postcholecystectomy diarrhea. Patient wants to have her right ovary removed at the same time as the gallbladder surgery. Therefore I called Dr. Bernardo who is on-call for gynecology today. And he will discuss with the patient this portion of the surgery and will plan the surgery at the same time. (2) Ovarian cyst Qualifiers: Laterality: right Qualified Code(s): N83.201 - Unspecified ovarian cyst, right side Is this a current diagnosis for this admission?: Yes Plan: Large right ovarian cyst noted on CT with patient having chronic right pelvic pain. Patient states that she has seen a asset availability leader at an outside facility who had recommended surgery but referred her to a asset availability leader in [place] although she has not seen anyone yet in [place]. Patient strongly desires to have this right ovarian cyst surgery performed at the same time as her gallbladder surgery if at all possible. I have asked Dr. Bernardo to discuss with the patient possibility of right oophorectomy at the same time as her gallbladder surgery today. If all in agreement, will have her right oophorectomy at the same time as her laparoscopic cholecystectomy today.
[2019-12-15] MEDS ORDERED: NEOSTIGMINE METHYLSULFATE 10 MG/10 ML VIAL ONE (14:20)
[2019-12-15] MEDS ORDERED: DEXAMETHASONE SOD PHOSPHATE INJ 4 MG/1 ML VIAL ONE (14:20)
[2019-12-15] MEDS ORDERED: ONDANSETRON HCL INJ/PF 4 MG/2 ML SDV ONE (14:20)
[2019-12-15] MEDS ORDERED: VECURONIUM BROMIDE INJ 10 MG VIAL IV ONE (14:20)
[2019-12-15] MEDS ORDERED: ROCURONIUM BROMIDE INJ 50 MG/5 ML VIAL IV ONE (14:20)
[2019-12-15] MEDS ORDERED: GLYCOPYRROLATE 1 MG/5 ML VIAL ONE (14:20)
[2019-12-15] MEDS ORDERED: LIDOCAINE 2% INJ-PF (20 MG/ML) 2 ML AMPUL ONE (14:20)
[2019-12-15] MEDS ORDERED: KETOROLAC TROMETHAMINE 60 MG/2 ML SDV ONE (14:20)
[2019-12-15] MEDS ORDERED: BUPIVACAINE HCL 0.25 % INJ/PF (2.5 MG/1 ML) 30 ML VIAL ONE (14:29)
[2019-12-15] MEDS ORDERED: FENTANYL CITRATE INJ/PF 100 MCG/2 ML AMPUL ONE (14:43)
[2019-12-15] MEDS ORDERED: HYDROMORPHONE HCL INJ/PF 2 MG/ML AMPULE ONE ×2 (14:43→18:23)
[2019-12-15] MEDS ORDERED: MIDAZOLAM 2 MG/2 ML INJ ONE (14:43)
[2019-12-15] MEDS ORDERED: PROPOFOL INJ 200 MG/20 ML VIAL IV ONE (14:44)
[2019-12-15] MEDS ORDERED: SUGAMMADEX SODIUM 200 MG/2 ML SDV IV ONE (14:44)
--- NOTE | 2019-12-15 17:12 | Operative Report ---
Operative Report DATE OF SURGERY: 12/15/19 PREOPERATIVE DIAGNOSIS: Bilateral ovarian cyst POSTOPERATIVE DIAGNOSIS: Same plus adhesions and bilateral endometrioma with possible salpingitis OPERATION: Right oophorectomy and a partial left oophorectomy SURGEON: PAMELA STERN ANESTHESIA: GA TISSUE REMOVED OR ALTERED: Right ovary and partial left ovary ESTIMATED BLOOD LOSS: Less than 10 cc INTRAOPERATIVE FINDINGS: Large right ovarian cyst and a large left ovarian cyst with possible pus and adhesions to the left adnexa wall. PROCEDURE: Patient was placed in a dorsolithotomy tissue prepped draped sterile fashion. Speculum placed cervix visualized and grasped with single-tooth tenaculum Hulka tenaculum placed single-tooth tenaculum was removed speculum was removed. Bladder was drained the catheter. Dr. GREGORY previously placed a subumbilical trocar with visualization of the pelvis. The right ovary appeared to be e nlarged but was essentially free. On the left the ovary was adhered to the cul-de-sac and the left adnexal wall and appeared to have hydrosalpinx with pus dripping from the the left external pelvis and a fine divided and then the ovary was divided across the midportion. The remaining ovary dose left was noted to be hemostatic. The ovarian portion was then removed from the abdomen. Patient was then turned back over to Dr. howell to complete his cholecystectomy. Fimbriated end. All other trochars were placed to facilitate removal of the right ovary the right ovary was grasped and using harmonic scalpel the right infundibulopelvic was then divided and divided until the ovary was free. He was then removed. Just turned to the left where the ovary was grasped with a grasper the ovary was elevated but approximately one half of the ovary was adhered to the wall on the left and the cul-de-sac and because of her body habitus did not lend itself well to removal.
[2019-12-15] MEDS ORDERED: FENTANYL CITRATE INJ/PF 100 MCG/2 ML AMPUL IV PRN ×3 (17:32)
[2019-12-15] MEDS ORDERED: PROMETHAZINE HCL INJ 25 MG/1 ML VIAL IV PRN (17:32)
[2019-12-15] MEDS ORDERED: OXYCODONE-ACETAMINOPHEN 5-325 MG TABLET PO PRN ×2 (17:32)
[2019-12-15] MEDS ORDERED: MORPHINE SULFATE 10 MG/ML INJ IV PRN (17:32)
[2019-12-15] MEDS ORDERED: DIPHENHYDRAMINE HCL 50 MG/ML VIAL IV PRN (17:32)
[2019-12-15] MEDS ORDERED: MEPERIDINE HCL/PF INJ 25 MG/1 ML DISP.SYRIN IV PRN (17:32)
[2019-12-15] MEDS ORDERED: ONDANSETRON HCL INJ/PF 4 MG/2 ML SDV IV PRN (17:32)
--- NOTE | 2019-12-15 18:17 | Operative Report ---
Operative Report DATE OF SURGERY: 12/15/19 PREOPERATIVE DIAGNOSIS: Cholecystitis, cholelithiasis. POSTOPERATIVE DIAGNOSIS: Cholelithiasis. OPERATION: Laparoscopic cholecystectomy SURGEON: ARTIE ROSA ANESTHESIA: GA TISSUE REMOVED OR ALTERED: Gallbladder COMPLICATIONS: None ESTIMATED BLOOD LOSS: 20 cc INTRAOPERATIVE FINDINGS: Large gallstone. PROCEDURE: Informed consent was obtained. Patient was brought to the operating room placed operating table in supine position. After satisfactory induction of general anesthesia, patient was placed in the lithotomy position and her perineum and abdomen was prepped and draped in usual sterile fashion. A supraumbilical midline incision was made and dissection carried down to the fascia the peritoneal cavity entered without difficulty. Benavides trocar was inserted. Pneumoperitoneum produced good patient toleration. Procedure was then turned over to Dr. Bernardo for his bilateral ovarian surgeries. Please refer to his operative report for this portion of the procedure. Following his part of the procedure, 5 mm trocar was placed in the subxiphoid location.Two 5 mm trochars were placed in the right subcostal location. The gallbladder was grasped and retracted anteriorly. Due to her body habitus and her liver shape the gallbladder could not be retracted cephalad over the dome of the liver. After different grasping techniques, exposure was finally able to be obtained. The infundibulum of the gallbladder was grasped retracted laterally and inferiorly thus exposing calot's triangle. The cystic duct gallbladder junction was clearly identified but the cystic artery was firmly adhered to the cystic duct and there was some scarring in this area and I felt that attempting to separate the 2 would incur possible damage to the cystic duct. Therefore the cystic artery and the cystic duct were taken in one by clipping and dividing. The gallbladder was taken off the gallbladder bed using the hook electrocautery technique. The gallbladder was removed with an Endobag through the Benavides trocar site fascial defect. The operative field was irrigated and irrigant aspirated out. Hemostasis appeared excellent. All trochars were removed under the direct vision a laparoscope to ensure hemostasis. The Benavides trocar site fascial defect was closed with interrupted Vicryl sutures. All skin incisions were closed with subcuticular interrupted Monocryl sutures. Marcaine was injected at the port sites. Patient tolerated procedure well no apparent complications and was taken to the recovery area in stable condition.
[2019-12-15] MEDS ORDERED: ACETAMINOPHEN 1,000 MG/100 ML RTUPB IV ONE (18:24)
[2019-12-15] MEDS ORDERED: CLINDAMYCIN 900 MG/D5W RTU 900 MG/50 ML RTUPB IV SCH (19:00)
--- NOTE | 2019-12-15 21:06 | PDOC PROGRESS REPORT ---
Subjective Progress Note for:: 12/15/19 Subjective:: feels much better. Some lower abdominal pain. Reason For Visit: BILATERAL OVARIAN CYSTS, PELVIC INFLAMMATORY Physical Exam Vital Signs: Temp Pulse Resp BP Pulse Ox 97.8 F 87 14 140/78 H 97 12/15/19 19:25 12/15/19 19:25 12/15/19 19:25 12/15/19 19:25 12/15/19 19:25 Intake & Output 12/14/19 12/15/19 12/16/19 06:59 06:59 06:59 Intake Total 1000 2700 Output Total 75 Balance 1000 2625 Weight 165.561 kg General appearance: PRESENT: no acute distress, cooperative Respiratory exam: PRESENT: clear to auscultation sin Cardiovascular exam: PRESENT: RRR GI/Abdominal exam: PRESENT: other - Soft, nondistended, very mild diffuse abd ominal tenderness markedly improved from her preoperative exam. Results Laboratory Results: 12/15/19 04:40 12/15/19 04:40 12/15/19 12/15/19 12/15/19 04:40 04:40 04:40 WBC 10.7 H RBC 4.50 Hgb 13.0 Hct 38.2 MCV 85 MCH 28.8 MCHC 33.9 RDW 14.2 H Plt Count 274 Seg Neutrophils % 60.4 Sodium 139.6 Potassium 4.5 Chloride 104 Carbon Dioxide 30 Anion Gap 6 BUN 17 Creatinine 0.54 Est GFR ( Amer) > 60 Glucose 124 H Calcium 8.9 Total Bilirubin 0.5 AST 20 Alkaline Phosphatase 62 Total Protein 7.4 Albumin 3.9 Lipase 87.6 Urine Color YELLOW Urine Appearance SLIGHTLY-CLOUDY Urine pH 5.0 Ur Specific [place] 1.020 Urine Protein NEGATIVE Urine Glucose (UA) NEGATIVE Urine Ketones NEGATIVE Urine Blood NEGATIVE Urine RBC (Auto) 0 Impressions: Abdomen/Pelvis CT 12/15/19 07:02 IMPRESSION: Cholelithiasis. No evidence of acute cholecystitis. 5 cm cyst right ovary. No evidence of acute appendicitis. Assessment & Plan - Diagnosis (1) Cholelithiasis Is this a current diagnosis for this admission?: Yes Plan: Status post laparoscopic cholecystectomy. Patient looks very good with resolution of her right upper quadrant abdominal pain. (2) Ovarian cyst Qualifiers: Laterality: bilateral Qualified Code(s): N83.201 - Unspecified ovarian cyst, right side; N83.202 - Unspecified ovarian cyst, left side Is this a current diagnosis for this admission?: Yes Plan: Patient with bilateral ovarian cysts with evidence of PID on the left. Status post right oophorectomy and partial left oophorectomy by Dr. Bernardo from gynecology. Will likely build to discharge patient home tomorrow on p.o. Cleocin 300 mg 3 times daily for 10 days follow-up with Dr. Bernardo. I have discussed with the patient the intraoperative findings.
[2019-12-15] MEDS: PRAMIPEXOLE DI-HCL 0.5 MG TABLET PO SCH (21:17)
[2019-12-15] MEDS: METOPROLOL TARTRATE 50 MG TABLET PO SCH (21:55)
[2019-12-15] MEDS: CLINDAMYCIN 900 MG/D5W RTU 900 MG/50 ML RTUPB IV SCH (22:27)
[2019-12-16] MEDS: INSULIN REG, HUMAN 100 UNIT/ML 3 ML VIAL (PYX) SUBCUT SCH ×3 (00:54→12:36)
[2019-12-16] MEDS: MORPHINE SULFATE 10 MG/ML INJ IV PRN ×2 (00:55→05:11)
[2019-12-16] MEDS: CLINDAMYCIN 900 MG/D5W RTU 900 MG/50 ML RTUPB IV SCH (05:16)
[2019-12-16] MEDS: PRAMIPEXOLE DI-HCL 0.5 MG TABLET PO SCH (05:17)
[2019-12-16 08:44] LABS: HEMATOCRIT 35.3 % (36.0-47.0); MEAN CORPUSCULAR HEMOGLOBIN 28.6 pg (27.0-33.4); MEAN CORPUSCULAR HGB CONC 33.9 g/dL (32.0-36.0); MEAN CORPUSCULAR VOLUME 85 fl (80-97); PLATELET COUNT 277 10^3/uL (150-450); RED BLOOD COUNT 4.18 10^6/uL (3.72-5.28); RED CELL DISTRIBUTION WIDTH 14.3 % (11.5-14.0); WHITE BLOOD COUNT 12.7 10^3/uL (4.0-10.5)
[2019-12-16 09:02] LABS: ALBUMIN 3.7 g/dL (3.5-5.0); ALKALINE PHOSPHATASE 62 U/L (38-126); ANION GAP 9 (5-19); ASPARTATE AMINO TRANSFERASE 53 U/L (14-36); BILIRUBIN,DIRECT 0.3 mg/dL (0.0-0.4); BILIRUBIN,TOTAL 0.6 mg/dL (0.2-1.3); BLOOD UREA NITROGEN 9 mg/dL (7-20); CALCIUM 8.6 mg/dL (8.4-10.2); CARBON DIOXIDE 27 mmol/L (22-30); CHLORIDE 101 mmol/L (98-107); GLUCOSE 115 mg/dL (75-110); POTASSIUM 4.3 mmol/L (3.6-5.0); TOTAL PROTEIN 7.1 g/dL (6.3-8.2)
[2019-12-16] MEDS: METOPROLOL TARTRATE 50 MG TABLET PO SCH (09:34)
[2019-12-16] MEDS ORDERED: (PENDING PHARMACY ID) (Lisinopril [Prinivil] 20 MG) PO SCH (10:00)
[2019-12-16] MEDS ORDERED: CHOLECALCIFEROL 10000 UNIT PO SCH (10:00)
[2019-12-16] MEDS ORDERED: LISINOPRIL 10 MG TABLET PO SCH (10:00)
--- NOTE | 2019-12-16 11:51 | PDOC PROGRESS REPORT ---
Subjective Progress Note for:: 12/16/19 Reason For Visit: BILATERAL OVARIAN CYSTS, PELVIC INFLAMMATORY Patient feels better, voided, no nausea or vomiting. Pain controlled Physical Exam Vital Signs: Temp Pulse Resp BP Pulse Ox 97.5 F 80 15 128/75 H 98 12/16/19 07:53 12/16/19 07:53 12/16/19 07:53 12/16/19 07:53 12/16/19 07:53 Intake & Output 12/15/19 12/16/19 12/17/19 06:59 06:59 06:59 Intake Total 1000 3250 Output Total 975 Balance 1000 2275 Weight 165.561 kg 170.1 kg General appearance: PRESENT: no acute distress GI/Abdominal exam: PRESENT: other - Abdomen appropriately tender. No peritoneal signs. Results Laboratory Results: 12/16/19 08:05 12/16/19 08:05 12/16/19 12/16/19 08:05 08:05 WBC 12.7 H RBC 4.18 Hgb 12.0 Hct 35.3 L MCV 85 MCH 28.6 MCHC 33.9 RDW 14.3 H Plt Count 277 Sodium 137.0 Potassium 4.3 Chloride 101 Carbon Dioxide 27 Anion Gap 9 BUN 9 Creatinine 0.43 L Est GFR ( Amer) > 60 Glucose 115 H Calcium 8.6 Total Bilirubin 0.6 AST 53 H Alkaline Phosphatase 62 Total Protein 7.1 Albumin 3.7 Impressions: Abdomen/Pelvis CT 12/15/19 07:02 IMPRESSION: Cholelithiasis. No evidence of acute cholecystitis. 5 cm cyst right ovary. No evidence of acute appendicitis. Assessment & Plan - Diagnosis (1) Cholelithiasis Is this a current diagnosis for this admission?: Yes Plan: Impression: Patient is 1 day status post exploratory laparoscopy, cholecystectomy, pelvic washout with left oophorectomy, and right partial nephrectomy for pelvic inflammatory disease, doing well, no complications. Recommendations: 1. We will check liver function studies and lab work this morning 2. Will advance diet as tolerated. 3. If laboratory work is satisfactory, anticipate discharge home on p.o. Cleocin and Toradol. (2) Abdominal pain Is this a current diagnosis for this admission?: Yes
--- NOTE | 2019-12-16 12:15 | PDOC DISCHARGE SUMMARY ---
General - Admit/Disc Date/PCP Admission Date/Primary Care Provider: 12/15/19 06:10 VALENTIN BOTELLO MD Discharge Date: 12/16/19 - Discharge Diagnosis Final Diagnosis: 1. Symptomatic cholelithiasis cholecystitis 2. Pelvic adhesions, bilateral ovarian cyst, and element of pelvic inflammatory disease - Assessment Summary: The patient is a 44-year-old white female with history of known cholelithiasis, and known symptomatic right ovarian cyst. She presents to the emergency department complaining of acute onset abdominal pain right sided. She was evaluated by CT scan of the abdomen and pelvis and found to have symptomatic cholelithiasis and a right renal cyst. She was admitted to the surgical service, and seen in consultation by Dr. Bernardo, [employer]. The patient was subseq uently taken to the operating room last night where she underwent exploratory laparoscopy, laparoscopic cholecystectomy, pelvic washout, right oophorectomy and partial left oophorectomy. No drain was placed. Patient tolerated procedure well. Postoperatively she was started on diet this was advanced and tolerated well. The afternoon of the first postoperative day she was felt to receive maximum benefit from hospitalization was discharged home. - Additional Information Resuscitation Status: Full Code Discharge Diet: As Tolerated Discharge Activity: Activity As Tolerated, No Lifting Over 10 Pounds - Patient will be discharged home to care of her family. She will call on December 18 to establish appointments with [facility], and [facility] in approximately a week to 10 days. She has been provided prescription for Toradol 10 mg p.o. every 6 hours, and Cleocin 300 mg p.o. 3 times a day for 10 days, No Lifting/Push/Pulling Referrals: VALENTIN BOTELLO MD [Primary Care Provider] - Follow up as needed Home Medications: Cholecalciferol (Vitamin D3) [Vitamin D3] 10,000 unit PO BID 12/15/19 Lisinopril [Prinivil] 20 mg PO DAILY 12/15/19 Metoprolol Tartrate [Lopressor 50 mg Tablet] 50 mg PO Q12 12/15/19 Pramipexole Di-HCl [Mirapex 0.5 mg Tablet] 0.5 mg PO Q8 12/15/19 History of Present Illiness History of Present Illness: MANDI MARK is a 44 year old female Physical Exam Vital Signs: Temp Pulse Resp BP Pulse Ox 97.7 F 73 16 138/69 H 95 12/16/19 11:43 12/16/19 11:43 12/16/19 11:43 12/16/19 11:43 12/16/19 11:43 Intake & Output 12/15/19 12/16/19 12/17/19 06:59 06:59 06:59 Intake Total 1000 3250 Output Total 975 Balance 1000 2275 Weight 165.561 kg 170.1 kg Results Laboratory Results: WBC 12.7 10^3/uL (4.0-10.5) H 12/16/19 08:05 RBC 4.18 10^6/uL (3.72-5.28) 12/16/19 08:05 Hgb 12.0 g/dL (12.0-15.5) 12/16/19 08:05 Hct 35.3 % (36.0-47.0) L 12/16/19 08:05 MCV 85 fl (80-97) 12/16/19 08:05 MCH 28.6 pg (27.0-33.4) 12/16/19 08:05 MCHC 33.9 g/dL (32.0-36.0) 12/16/19 08:05 RDW 14.3 % (11.5-14.0) H 12/16/19 08:05 Plt Count 277 10^3/uL (150-450) 12/16/19 08:05 Lymph % (Auto) 28.5 % (13-45) 12/15/19 04:40 [place] % (Auto) 6.9 % (3-13) 12/15/19 04:40 Eos % (Auto) 3.7 % (0-6) 12/15/19 04:40 Baso % (Auto) 0.5 % (0-2) 12/15/19 04:40 Absolute Neuts (auto) 6.5 10^3/uL (1.7-8.2) 12/15/19 04:40 Absolute Lymphs (auto) 3.0 10^3/uL (0.5-4.7) 12/15/19 04:40 Absolute Monos (auto) 0.7 10^3/uL (0.1-1.4) 12/15/19 04:40 Absolute Eos (auto) 0.4 10^3/uL (0.0-0.6) 12/15/19 04:40 Absolute Basos (auto) 0.1 10^3/uL (0.0-0.2) 12/15/19 04:40 Seg Neutrophils % 60.4 % (42-78) 12/15/19 04:40 Sodium 137.0 mmol/L (137-145) 12/16/19 08:05 Potassium 4.3 mmol/L (3.6-5.0) 12/16/19 08:05 Chloride 101 mmol/L (98-107) 12/16/19 08:05 Carbon Dioxide 27 mmol/L (22-30) 12/16/19 08:05 Anion Gap 9 (5-19) 12/16/19 08:05 BUN 9 mg/dL (7-20) 12/16/19 08:05 Creatinine 0.43 mg/dL (0.52-1.25) L 12/16/19 08:05 Est GFR ( Amer) > 60 (>60) 12/16/19 08:05 Est GFR (MDRD) Non-Af > 60 (>60) 12/16/19 08:05 Glucose 115 mg/dL (75-110) H 12/16/19 08:05 POC Glucose 117 mg/dL (70-110) H 12/16/19 05:13 Calcium 8.6 mg/dL (8.4-10.2) 12/16/19 08:05 Total Bilirubin 0.6 mg/dL (0.2-1.3) 12/16/19 08:05 Direct Bilirubin 0.3 mg/dL (0.0-0.4) 12/16/19 08:05 Neonat Total Bilirubin Not Reportable 12/16/19 08:05 Neonat Direct Bilirubin Not Reportable 12/16/19 08:05 Neonat Indirect Bili Not Reportable 12/16/19 08:05 AST 53 U/L (14-36) H 12/16/19 08:05 ALT 33 U/L (<35) 12/16/19 08:05 Alkaline Phosphatase 62 U/L (38-126) 12/16/19 08:05 Total Protein 7.1 g/dL (6.3-8.2) 12/16/19 08:05 Albumin 3.7 g/dL (3.5-5.0) 12/16/19 08:05 Lipase 87.6 U/L (23-300) 12/15/19 04:40 Urine Color YELLOW 12/15/19 04:40 Urine Appearance SLIGHTLY-CLOUDY 12/15/19 04:40 Urine pH 5.0 (5.0-9.0) 12/15/19 04:40 Ur Specific [place] 1.020 12/15/19 04:40 Urine Protein NEGATIVE mg/dL (NEGATIVE) 12/15/19 04:40 Urine Glucose (UA) NEGATIVE mg/dL (NEGATIVE) 12/15/19 04:40 Urine Ketones NEGATIVE mg/dL (NEGATIVE) 12/15/19 04:40 Urine Blood NEGATIVE (NEGATIVE) 12/15/19 04:40 Urine Nitrite (Reflex) NEGATIVE (NEGATIVE) 12/15/19 04:40 Urine Bilirubin NEGATIVE (NEGATIVE) 12/15/19 04:40 Urine Urobilinogen NEGATIVE mg/dL (<2.0) 12/15/19 04:40 Leukocyte Esterase Rfl NEGATIVE (NEGATIVE) 12/15/19 04:40 Urine RBC (Auto) 0 /HPF 12/15/19 04:40 Urine WBC (Reflex) 1 /HPF 12/15/19 04:40 Squamous Epi Cells Auto 2 /HPF 12/15/19 04:40 Urine Mucus (Auto) RARE /LPF 12/15/19 04:40 Urine Ascorbic Acid NEGATIVE (NEGATIVE) 12/15/19 04:40 Impressions: Abdomen/Pelvis CT 12/15/19 07:02 IMPRESSION: Cholelithiasis. No evidence of acute cholecystitis. 5 cm cyst right ovary. No evidence of acute appendicitis.
[2019-12-16 12:52] VITALS: BP 146/88
[2019-12-16] MEDS ORDERED: IBUPROFEN 400 MG TABLET PO ONE (13:00)
--- NOTE | 2019-12-16 21:58 | EKG REPORT ---
SEVERITY:- ABNORMAL ECG - SINUS RHYTHM LEFT ANTERIOR FASCICULAR BLOCK BORDERLINE R WAVE PROGRESSION, ANTERIOR LEADS : Confirmed by: Rosalia De La Torre 16-Dec-2019 21:57:53
--- NOTE | 2019-12-18 13:31 | Progress Note ---
Provider Note Provider Note: Called by laboratory today on 12/18/2019 at 1:15 PM about a positive blood culture for this patient for micrococcus. Patient was discharged home yesterday after laparoscopic cholecystectomy. I have tried multiple tries at calling the patient and only received her voicemail. I left message on her voicemail stating that her blood culture was positive for micrococcus and will be calling in a prescription for Augmentin for her.
--- NOTE | 2019-12-18 13:37 | PDOC DISCHARGE SUMMARY ---
General - Admit/Disc Date/PCP Admission Date/Primary Care Provider: 12/15/19 06:10 VALENTIN BOTELLO MD Discharge Date: 12/17/19 - Discharge Diagnosis Final Diagnosis: cholelithiasis - Assessment Summary: The patient is a 44-year-old white female with history of known cholelithiasis, and known symptomatic right ovarian cyst. She presents to the emergency department complaining of acute onset abdominal pain right sided. She was evaluated by CT scan of the abdomen and pelvis and found to have symptomatic cholelithiasis and a right renal cyst. She was admitted to the surgical service, and seen in consultation by Dr. Stern, [facility]. The patient was subsequently taken to the operating room last night where she underwent exploratory laparoscopy, laparoscopic cholecystectomy, pelvic washout, right oophorectomy and partial left oophorectomy. No drain was placed. Patient tolerated procedure well. Postoperatively she was started on diet this was advanced and tolerated well. The afternoon of the first postoperative day she was felt to receive maximum benefit from hospitalization was discharged home. - Additional Information Resuscitation Status: Full Code Discharge Diet: As Tolerated Discharge Activity: Activity As Tolerated, No Lifting Over 10 Pounds, No Lifting/Push/Pulling Referrals: RUBIN GUAJARDO MD [ACTIVE STAFF] - (Pt to Call on 12/18/2019 to schedule an 1 week - 10 day appt at [facility] and with Dr Stern at [facility]. ) VALENTIN BOTELLO MD [Primary Care Provider] - Follow up as needed PAMELA STERN MD [ACTIVE STAFF] - Prescriptions: Amox Tr/Potassium Clavulanate [Augmentin 500-125 Tablet] 1 each PO BID 10 Days #20 tablet Home Medications: Cholecalciferol (Vitamin D3) [Vitamin D3] 10,000 unit PO BID 12/15/19 Lisinopril [Prinivil] 20 mg PO DAILY 12/15/19 Metoprolol Tartrate [Lopressor 50 mg Tablet] 50 mg PO Q12 12/15/19 Pramipexole Di-HCl [Mirapex 0.5 mg Tablet] 0.5 mg PO Q8 12/15/19 Amox Tr/Potassium Clavulanate [Augmentin 500-125 Tablet] 1 each PO BID 10 Days #20 tablet 12/18/19 History of Present Illiness History of Present Illness: MANDI MARK is a 44 year old female Physical Exam Vital Signs: Temp Pulse Resp BP Pulse Ox 97.7 F 73 16 146/88 H 95 12/16/19 12:48 12/16/19 12:48 12/16/19 12:48 12/16/19 12:48 12/16/19 12:48 Intake & Output 12/17/19 12/18/19 12/19/19 06:59 06:59 06:59 Intake Total 500 Balance 500 Results Laboratory Results: WBC 12.7 10^3/uL (4.0-10.5) H 12/16/19 08:05 RBC 4.18 10^6/uL (3.72-5.28) 12/16/19 08:05 Hgb 12.0 g/dL (12.0-15.5) 12/16/19 08:05 Hct 35.3 % (36.0-47.0) L 12/16/19 08:05 MCV 85 fl (80-97) 12/16/19 08:05 MCH 28.6 pg (27.0-33.4) 12/16/19 08:05 MCHC 33.9 g/dL (32.0-36.0) 12/16/19 08:05 RDW 14.3 % (11.5-14.0) H 12/16/19 08:05 Plt Count 277 10^3/uL (150-450) 12/16/19 08:05 Lymph % (Auto) 28.5 % (13-45) 12/15/19 04:40 Wilkin % (Auto) 6.9 % (3-13) 12/15/19 04:40 Eos % (Auto) 3.7 % (0-6) 12/15/19 04:40 Baso % (Auto) 0.5 % (0-2) 12/15/19 04:40 Absolute Neuts (auto) 6.5 10^3/uL (1.7-8.2) 12/15/19 04:40 Absolute Lymphs (auto) 3.0 10^3/uL (0.5-4.7) 12/15/19 04:40 Absolute Monos (auto) 0.7 10^3/uL (0.1-1.4) 12/15/19 04:40 Absolute Eos (auto) 0.4 10^3/uL (0.0-0.6) 12/15/19 04:40 Absolute Basos (auto) 0.1 10^3/uL (0.0-0.2) 12/15/19 04:40 Seg Neutrophils % 60.4 % (42-78) 12/15/19 04:40 Sodium 137.0 mmol/L (137-145) 12/16/19 08:05 Potassium 4.3 mmol/L (3.6-5.0) 12/16/19 08:05 Chloride 101 mmol/L (98-107) 12/16/19 08:05 Carbon Dioxide 27 mmol/L (22-30) 12/16/19 08:05 Anion Gap 9 (5-19) 12/16/19 08:05 BUN 9 mg/dL (7-20) 12/16/19 08:05 Creatinine 0.43 mg/dL (0.52-1.25) L 12/16/19 08:05 Est GFR ( Amer) > 60 (>60) 12/16/19 08:05 Est GFR (MDRD) Non-Af > 60 (>60) 12/16/19 08:05 Glucose 115 mg/dL (75-110) H 12/16/19 08:05 POC Glucose 137 mg/dL (70-110) H 12/16/19 12:35 Calcium 8.6 mg/dL (8.4-10.2) 12/16/19 08:05 Total Bilirubin 0.6 mg/dL (0.2-1.3) 12/16/19 08:05 Direct Bilirubin 0.3 mg/dL (0.0-0.4) 12/16/19 08:05 Neonat Total Bilirubin Not Reportable 12/16/19 08:05 Neonat Direct Bilirubin Not Reportable 12/16/19 08:05 Neonat Indirect Bili Not Reportable 12/16/19 08:05 AST 53 U/L (14-36) H 12/16/19 08:05 ALT 33 U/L (<35) 12/16/19 08:05 Alkaline Phosphatase 62 U/L (38-126) 12/16/19 08:05 Total Protein 7.1 g/dL (6.3-8.2) 12/16/19 08:05 Albumin 3.7 g/dL (3.5-5.0) 12/16/19 08:05 Lipase 87.6 U/L (23-300) 12/15/19 04:40 Urine Color YELLOW 12/15/19 04:40 Urine Appearance SLIGHTLY-CLOUDY 12/15/19 04:40 Urine pH 5.0 (5.0-9.0) 12/15/19 04:40 Ur Specific [place] 1.020 12/15/19 04:40 Urine Protein NEGATIVE mg/dL (NEGATIVE) 12/15/19 04:40 Urine Glucose (UA) NEGATIVE mg/dL (NEGATIVE) 12/15/19 04:40 Urine Ketones NEGATIVE mg/dL (NEGATIVE) 12/15/19 04:40 Urine Blood NEGATIVE (NEGATIVE) 12/15/19 04:40 Urine Nitrite (Reflex) NEGATIVE (NEGATIVE) 12/15/19 04:40 Urine Bilirubin NEGATIVE (NEGATIVE) 12/15/19 04:40 Urine Urobilinogen NEGATIVE mg/dL (<2.0) 12/15/19 04:40 Leukocyte Esterase Rfl NEGATIVE (NEGATIVE) 12/15/19 04:40 Urine RBC (Auto) 0 /HPF 12/15/19 04:40 Urine WBC (Reflex) 1 /HPF 12/15/19 04:40 Squamous Epi Cells Auto 2 /HPF 12/15/19 04:40 Urine Mucus (Auto) RARE /LPF 12/15/19 04:40 Urine Ascorbic Acid NEGATIVE (NEGATIVE) 12/15/19 04:40 Impressions: Abdomen/Pelvis CT 12/15/19 07:02 IMPRESSION: Cholelithiasis. No evidence of acute cholecystitis. 5 cm cyst right ovary. No evidence of acute appendicitis.
== END 2019-12-16 13:22 | disposition home or self-care (01) ==
LOC: ER 03:56 → EH 06:10 → INTOOBSV 06:10 → 2N 19:05
PROVIDERS: ATTEND Surgery
DX: K80.10 Calculus of gallbladder with chronic cholecystitis without obstruction (principal); N70.01 Acute salpingitis; D27.9 Benign neoplasm of unspecified ovary; N80.1 Endometriosis of ovary; N73.9 Female pelvic inflammatory disease, unspecified; N73.6 Female pelvic peritoneal adhesions (postinfective); G25.81 Restless legs syndrome; I10 Essential (primary) hypertension; N28.1 Cyst of kidney, acquired; R78.81 Bacteremia; B96.89 Other specified bacterial agents as the cause of diseases classified elsewhere; E66.01 Morbid (severe) obesity due to excess calories; Z79.899 Other long term (current) drug therapy
CPT/HCPCS: 47562; 58661; 93005; 99285; 96361; 96374; 36415 ×2; 87040; 82962 ×2; 83690; 85025; 85027; 87077; 80053 ×2; 81001; 87150 ×26; 88304 ×2; 88307 ×2; 76705; 74177; 93010; 00790; G0378 ×3; C1758; J2250; J3490 ×12; J1100; J1885 ×2; J3010; J0295; J2270 ×2; J2710; J1170; J1815; J2405; J7030 ×2; J2704; J0131; 790; 88305